=== PATIENT | male | born 1960 | race Caucasian/White ===

== ENCOUNTER 2023-05-20 11:34 | Observation (INO) ==
[2023-05-20] MEDS ORDERED: NITROGLYCERIN 2% OINTMENT 30GM TUBE EXT ONE (11:44)
--- NOTE | 2023-05-20 11:48 | Emergency Department Note ---
Impression & Plan Unstable angina, Abnormal ECG ED Provider Note Name: ALEXANDREA HALL Age: 63 Sex: M Arrives Via: Ambulance Informant: Patient, Daughter, Family, EMS ED Provider: Chidi Greer MD Chief Complaint: Chest pain Impression: As per impressions above Medical Decision Makin-year-old gentleman primary Togolese-speaking arrives for evaluation of substernal chest pain sudden onset this morning. Was diaphoretic and ill- appearing initially but improved with nitro by EMS. On arrival he still had some pain was given IV fentanyl with some improvement and then some IV Dilaudid for continued pain. EKG does show some evidence of anterior biphasic T waves. I did initially discuss with camp coordinator and plan for CT angio chest abdomen pelvis given the significance of his pain and location. This returned unremarkable repeat troponin still at initial baseline, however EKG repeat may show some mildly worsening of the T waves. In the setting of known coronary disease, previous stenting, degree of discomfort and symptoms after discussion with camp coordinator was felt that cardiac catheterization would be indicated at this time. I will note that patient is primarily Togolese-speaking and initially did not want a thermoforming operator line but rather just use his daughter. We were able to have him agreed to using the thermoforming operator line once became apparent the plan was to go to the [facility]. Triage/Nursing Notes reviewed by Me Differentials:ACS, PE, dissection, pancreatitis, biliary pathology, pneumothorax, pneumonia, many other pathologies considered Vital Signs: reviewed and remarkable for moderately hypertensive on arrival Interventions: Nitroglycerin paste, fentanyl 75 mcg IV Labs:Reviewed and remarkable for mildly elevated initial troponin Imaging:CT angio of the chest abdomen pelvis as per my informal interpretation. No overt evidence of large dissection/flap nor rupture. No pneumothorax. No pericardial effusion appreciated. See radiologist read for full report. EKG:As per my interpretation. Indication chest pain. Sinus bradycardia at 53 bpm with no ectopy. QTc 416. There are subtle biphasic T wave in the anterior leads versus left ventricular hypertrophy. There are no previous EKGs for comparison. EKG #2. As per my interpretation. Indication chest pain. As bradycardia 50 bpm with QTc of 421. There is subtle worsening of biphasic T waves anteriorly with slight elevation in V1 and V2. This is a change from earlier EKG on the same date. There is no ectopy appreciated. Cardiac/Tele Monitoring: Cardiac Monitoring: An Order was placed for continuous cardiac monitoring. The monitor shows a rate of 55 with a sinus osorio rhythm. Consults:Dr J Carlos HENRY Interventional Cardiology. [facility] Hospitalist Jzamyn Villalobos. Plan: Disposition:Hospitalization with direct transfer to [facility]. Condition: Good History of Present Illness:63-year-old gentleman arrives for evaluation of chest pain. Patient with a history of hypertension and CAD previous stenting 15 years ago in [place] (the country[place] Patient states that he has been feeling wel l for a few days with a bit of anxiety but nothing that was bothering him too much. This morning while shopping with his daughter he developed crushing substernal and epigastric chest pain. Pain did not radiate to the back or the shoulders. Associated with diaphoresis, pale, weak, short of breath. EMS called and gave him aspirin and sublingual nitroglycerin. Following sublingual nitroglycerin pain essentially resolved and he is feeling much better. Notes some mild substernal pain right now just above epigastrium. Denies any abdominal pain, nausea, vomiting, back pain, urinary/bowel symptoms, leg swelling, calf pain or other concerning signs or symptoms. He has no history of blood clots. He does take aspirin along with a blood pressure and cholesterol medication. Patient admits to history of tobacco use and smoking. Past History:CAD, HTN Home Medications:See Below Allergies:nkda Vitals:Blood Pressure: 160/110, Pulse 60, RR 14, T 36.8C, O2 98% on RA Physical Exam: GENERAL: Patient is mildly uncomfortable appearing and in mild distress. EYES: No scleral icterus, unremarkable pupils. RESPIRATORY: No dyspnea. Clear to auscultation and equal bilaterally. No wheeze, no rhonchi. CARDIOVASCULAR: Regular rate and rhythm.No murmurs, rubs, gallops appreciated. GASTROINTESTINAL: Vague epigastric TTP. Abdomen soft, non-tender, no peritoni tis.Bowel sounds positive.No masses appreciated. EXTREMITIES: Normal motion all extremities, no cyanosis, no edema. NEUROLOGIC: Alert and oriented, no acute motor or sensory deficits, no focal wea kness, cranial nerves grossly intact. SKIN: No rash, no jaundice, no diaphoresis. PSYCH: Appropriate GCS: 15 ED Course: Times/Reassessments: Patient mildly improved with IV pain medications but continuing to describe substernal chest discomfort as well as some epigastric discomfort. Agreeable to CT angios as well as going to the [facility]. Critical Care: I have personally spent 45 minutes of critical care time in the direct management of this patient. Acute substernal chest pain concerning for ACS requiring dissection study and then activation of [facility] team.. This was a life/limb threatening event. This 45 minutes is in excess of all separately billable procedures. Chidi Greer MD Past Med/Surg History Medical History CAD (coronary artery disease) HLD (hyperlipidemia) HTN (hypertension) Surgical History Hx of heart artery stent Family History Other Heart disease Social History Smoking Status: Current every day smoker Hx Alcohol Use: No Hx Substance Use: No Preferred Language: Togolese Communication Tools: IPad Switchboard Clerk Required: Yes Beliefs That Will Affect Care: None Current Living Situation: Family Feels Safe at Home: Yes Safety Concerns: Feels Safe At This Time Assistive Devices: Glasses Allergies Allergies Allergy/AdvReac Type Severity Reaction Status Date / Time No Known Allergies Allergy Unverified 05/20/23 14:32 Home Meds Home Medications Medication Instructions Recorded Confirmed aspirin 81 mg tablet,delayed 81 mg PO DAILY 05/20/23 05/20/23 release atorvastatin 20 mg tablet 20 mg PO DAILY 05/20/23 05/20/23 enalapril maleate 20 mg tablet 20 mg PO DAILY 05/20/23 05/20/23 omega-3 fatty acids 1,000 mg PO DAILY 05/20/23 05/20/23 Results & Data (ED) Vital Signs Vital Signs - 24 hr 05/20/23 11:38 05/20/23 11:43 05/20/23 12:02 Temperature 37.2 C Temperature Source Oral Pulse Rate 53 L 59 L 53 L Pulse Rate from SpO2 Sensor 57 L 52 L Respiratory Rate 18 21 23 Respiratory Depth Normal Blood Pressure 164/128 H 164/128 H 166/82 H Blood Pressure Mean 140 140 110 Pulse Oximetry 96 96 97 Oxygen Delivery Method Room Air Sepsis Recent Fever Within 48 Hours No Sepsis New/Unexplained Change in Mental Status No Sepsis Action Taken by Nursing No Action Required 05/20/23 12:10 05/20/23 12:33 05/20/23 12:30 Temperature Temperature Source Pulse Rate 50 L 54 L 54 L Pulse Rate from SpO2 Sensor 50 L 54 L Respiratory Rate 21 12 Respiratory Depth Blood Pressure 171/90 H Blood Pressure Mean 117 Pulse Oximetry 97 96 Oxygen Delivery Method Sepsis Recent Fever Within 48 Hours Sepsis New/Unexplained Change in Mental Status Sepsis Action Taken by Nursing 05/20/23 13:00 05/20/23 13:39 Temperature Temperature Source Pulse Rate 48 L 57 L Pulse Rate from SpO2 Sensor 50 L 54 L Respiratory Rate 17 17 Respiratory Depth Blood Pressure 147/92 H 145/82 H Blood Pressure Mean 110 103 Pulse Oximetry 97 97 Oxygen Delivery Method Sepsis Recent Fever Within 48 Hours Sepsis New/Unexplained Change in Mental Status Sepsis Action Taken by Nursing Laboratory Data 05/20/23 11:43 05/20/23 11:43 Lab Results 05/20/23 05/20/23 05/20/23 Range/Units 11:43 11:43 11:43 WBC 8.02 (4.8-10.8) K/ul RBC 5.15 (4.70-6.10) M/uL Hgb 15.6 (14.0-18.0) g/dl Hct 46.2 (42.0-52.0) % MCV 89.7 (80.0-100.0) fL MCH 30.3 (25.0-34.0) pg MCHC 33.8 (32.0-36.0) g/dL RDW Std Deviation 47.0 H (36.4-46.3) fL RDW Coeff of Alanna 14.2 (11.5-14.5) % Plt Count 281 (130-400) K/uL MPV 10.7 (9.4-12.4) fL Immature Gran % (Auto) 0.5 % Neut % (Auto) 46.5 % Lymph % (Auto) 34.5 % [place] % (Auto) 13.7 % Eos % (Auto) 4.1 % Baso % (Auto) 0.7 % Neut # (Auto) 3.72 (1.40-6.50) K/uL Lymph # (Auto) 2.77 (1.2-3.4) K/uL [place] # (Auto) 1.10 H (0.11-0.59) K/uL Eos # (Auto) 0.33 (0-0.50) K/uL Baso # (Auto) 0.06 (0-0.2) K/uL Immature Gran # (Auto) 0.04 (0.01-0.20) K/uL PT 10.5 (9.0-12.0) Seconds INR 1.0 (0.9-1.1) APTT 24.7 (21.0-31.0) Seconds PTT Ratio 0.9 D-Dimer 310 (0-500) ug/L FEU Sodium 139 (136-145) mmol/L Potassium 3.6 (3.5-5.1) mmol/L Chloride 104 (98-107) mmol/L Carbon Dioxide 28 (21-32) mmol/L Anion Gap 7 (3-11) BUN 17 (6-23) mg/dl Creatinine 1.08 (0.6-1.4) mg/dl Est Cr Clr Drug Dosing Not Reportable Est GFR ( Amer) 84.8 ml/min Est GFR (Non-Af Amer) 73.2 ml/min BUN/Creatinine Ratio 15.7 (10-20) Glucose 96 (70-99(Fasting)) mg/dl Calcium 10.0 (8.6-10.3) mg/dl Magnesium 2.0 (1.7-2.4) mg/dl Total Bilirubin 1.1 H (0.2-1.0) mg/dl Direct Bilirubin 0.1 (0-0.2) mg/dl AST 23 (13-39) U/L ALT 27 (7-52) U/L Alkaline Phosphatase 91 (34-104) U/L Troponin I High Sens 23.7 H (0-20) pg/ml Total Protein 7.3 (6.0-8.3) gm/dl Albumin 4.2 (3.4-5.0) gm/dl Lipase 11 (11-82) U/L 05/20/23 Range/Units 13:14 WBC (4.8-10.8) K/ul RBC (4.70-6.10) M/uL Hgb (14.0-18.0) g/dl Hct (42.0-52.0) % MCV (80.0-100.0) fL MCH (25.0-34.0) pg MCHC (32.0-36.0) g/dL RDW Std Deviation (36.4-46.3) fL RDW Coeff of Alanna (11.5-14.5) % Plt Count (130-400) K/uL MPV (9.4-12.4) fL Immature Gran % (Auto) % Neut % (Auto) % Lymph % (Auto) % [place] % (Auto) % Eos % (Auto) % Baso % (Auto) % Neut # (Auto) (1.40-6.50) K/uL Lymph # (Auto) (1.2-3.4) K/uL [place] # (Auto) (0.11-0.59) K/uL Eos # (Auto) (0-0.50) K/uL Baso # (Auto) (0-0.2) K/uL Immature Gran # (Auto) (0.01-0.20) K/uL PT (9.0-12.0) Seconds INR (0.9-1.1) APTT (21.0-31.0) Seconds PTT Ratio D-Dimer (0-500) ug/L FEU Sodium (136-145) mmol/L Potassium (3.5-5.1) mmol/L Chloride (98-107) mmol/L Carbon Dioxide (21-32) mmol/L Anion Gap (3-11) BUN (6-23) mg/dl Creatinine (0.6-1.4) mg/dl Est Cr Clr Drug Dosing Est GFR ( Amer) ml/min Est GFR (Non-Af Amer) ml/min BUN/Creatinine Ratio (10-20) Glucose (70-99(Fasting)) mg/dl Calcium (8.6-10.3) mg/dl Magnesium (1.7-2.4) mg/dl Total Bilirubin (0.2-1.0) mg/dl Direct Bilirubin (0-0.2) mg/dl AST (13-39) U/L ALT (7-52) U/L Alkaline Phosphatase (34-104) U/L Troponin I High Sens 18.5 D (0-20) pg/ml Total Protein (6.0-8.3) gm/dl Albumin (3.4-5.0) gm/dl Lipase (11-82) U/L Administered Medications Enoxaparin Sodium (Enoxaparin Inj 40 Mg/0.4 Ml Syr) 40 mg SQ Q24H CHARITY Stop: 06/19/23 15:59 Last Admin: 05/20/23 18:00 Dose: 40 mg Documented By: Discontinued Medications Diphenhydramine HCl (Diphenhydramine 50 Mg/Ml Vial) Confirm Administered Dose 50 mg .ROUTE .STK-MED ONE Stop: 05/20/23 14:22 Last Admin: 05/20/23 15:28 Dose: Not Given Documented By: Famotidine (Famotidine 10 Mg Tablet) 10 mg PO NOW ONE Stop: 05/20/23 16:31 Last Admin: 05/20/23 17:02 Dose: 10 mg Documented By: Fentanyl Citrate (Fentanyl Citrate Pf 100 Mcg/2 Ml Vial) 75 mcg IV NOW STA Stop: 05/20/23 12:09 Last Admin: 05/20/23 12:21 Dose: 75 mcg Documented By: JACKIE Fentanyl Citrate (Fentanyl Citrate Pf 100 Mcg/2 Ml Vial) Confirm Administered Dose 100 mcg .ROUTE .STK-MED ONE Stop: 05/20/23 13:40 Last Admin: 05/20/23 15:28 Dose: Not Given Documented By: Heparin Sodium (Porcine) (Heparin (Porcine) 1000 Unit/Ml 10 Ml ([facility] Use Only)) Confirm Administered Dose 10,000 units .ROUTE .STK-MED ONE Stop: 05/20/23 13:40 Last Admin: 05/20/23 15:28 Dose: Not Given Documented By: Heparin Sodium/Sodium Chloride (Heparin In Nss Infusion 1000 Unit/500 Ml (2 U/Ml) Bag) Confirm Administered Dose 4,000 units IV .STK-MED ONE Stop: 05/20/23 13:41 Last Admin: 05/20/23 15:28 Dose: Not Given Documented By: Hydromorphone HCl (Hydromorphone Inj 1 Mg/Ml Syringe) 1 mg IV NOW STA Stop: 05/20/23 13:16 Last Admin: 05/20/23 13:25 Dose: 1 mg Documented By: KOBY Ioversol (Optiray 320 125ml) 119 ml IV ONCE ONE Stop: 05/20/23 12:39 Last Admin: 05/20/23 12:38 Dose: 119 ml Documented By: ANDREWK Midazolam HCl (Midazolam Hcl 1 Mg/Ml 2ml Vial) Confirm Administered Dose 2 mg .ROUTE .STK-MED ONE Stop: 05/20/23 13:40 Last Admin: 05/20/23 15:28 Dose: Not Given Documented By: Nicardipine HCl (Nicardipine Hcl Inj 2.5 Mg/Ml 10 Ml Amp) Confirm Administered Dose 25 mg .ROUTE .STK-MED ONE Stop: 05/20/23 13:40 Last Admin: 05/20/23 15:28 Dose: Not Given Documented By: Nitroglycerin (Nitroglycerin 2% Ointment 30gm Tube) 1 inch EXT NOW ONE Stop: 05/20/23 11:45 Last Admin: 05/20/23 12:05 Dose: 1 inch Documented By: NRErwin Nitroglycerin/Dextrose (Nitroglycerin/D5w 100mcg/Ml 20ml Syr) Confirm Administered Dose 2,000 mcg .ROUTE .STK-MED ONE Stop: 05/20/23 13:41 Last Admin: 05/20/23 15:28 Dose: Not Given Documented By: Imaging Data Radiologist's Impression: Abdomen/Pelvis CTA 05/20/23 12:23 CT angio abdomen pelvis w con CLINICAL HISTORY: tearing chest pain, HTN TECHNIQUE: Multidetector row helical CT of the abdomen and pelvis was performed, following intravenous administration of iodinated contrast. No oral contrast was administered. Automated dose lowering techniques and/or adjustment according to patient size were utilized for this exam. Coronal and sagittal reformations were obtained. MIP and 3D volume rendered reconstructions were obtained. Comparison: None available at the time of this dictation. FINDINGS: Lower chest: For findings above the diaphragm, please see CT chest performed same day. Liver: Unremarkable. No focal lesions are seen. Gallbladder and biliary tree: No calcified gallstones. Normal caliber wall. No intra- or extrahepatic biliary ductal dilation. Pancreas: Unremarkable, no focal lesions. Spleen: The spleen is somewhat diminutive in size. Adrenals: Bilateral nodularity is seen. Kidneys and ureters: Multifocal scarring is seen in the kidneys. Bladder: Unremarkable. Reproductive organs: Unremarkable. Bowel: Unremarkable appearance of the bowel. The appendix is normal. A small hiatal hernia is seen. Lymph nodes Retroperitoneal: Unremarkable. Pelvic: Unremarkable. Mesenteric: Unremarkable. Peritoneum: Normal. Abdominal wall: A fat-containing umbilical hernia is seen. Bones: Degenerative changes in the visualized spine. CT angiogram: The abdominal aortic contours appear intact without evidence of aneurysmal dilatation and/or dissection. Extensive calcified and noncalcified atherosclerosis is seen. 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 The origins of the celiac axis, superior mesenteric, inferior mesenteric and bilateral renal arteries are patent. IMPRESSION: No acute abnormalities and in particular no evidence of aortic dissection. Extensive atherosclerotic disease is seen with additional findings as above.. ACT 112: Negative or not required by law. Electronically signed by: Ranulfo Walters M.D. 05/20/2023 1:12 PM Chest CTA 05/20/23 12:23 CT angio chest dissec wo/w con CLINICAL HISTORY: tearing chest pain, HTN TECHNIQUE: Multidetector row helical CT of the chest was performed before and after injection of IV contrast. Coronal and sagittal reformations were obtained. Automated dose lowering techniques and/or adjustment according to patient size were utilized for this exam. CT DOSE: 1968.77 mGy.cm Comparison: None available at the time of this dictation. FINDINGS: Lungs and pleura: Normal. Heart and pericardium: Heart size is normal. No pericardial effusion. Vessels: No aortic dissection or intramural hematoma is seen. Moderate atherosclerotic disease is seen. Mediastinum and henry: Unremarkable. Chest wall and lower neck: Unremarkable. Abdomen: For findings below the diaphragm, please refer to CT of the abdomen dated the same. Bones: Degenerative changes in the thoracic spine. IMPRESSION: No acute abnormality and in particular no evidence of acute aortic injury. ACT 112: Negative or not required by law. Electronically signed by: Ranulfo Walters M.D. 05/20/2023 1:05 PM Discharge Plan Visit Data Chief Complaint: Chest Pain Stated Complaint: CHEST PAIN ED Provider: Chidi Greer Discharge Problem: Unstable angina, Abnormal ECG Patient Disposition: Admitted As Inpatient Discharge Instructions Interventions: ED Discharge Assessment Last Done: 05/20/23 13:52
[2023-05-20 12:00] LABS: Basophils # (auto) 0.06 K/uL (0-0.2); Basophils % (auto) 0.7 %; Eosinophils # (auto) 0.33 K/uL (0-0.50); Eosinophils % (auto) 4.1 %; Hematocrit (blood only) 46.2 % (42.0-52.0); Hemoglobin 15.6 g/dl (14.0-18.0); Immature Granulocytes # (auto) 0.04 K/uL (0.01-0.20); Immature Granulocytes % (auto) 0.5 %; Lymphocytes # (auto) 2.77 K/uL (1.2-3.4); Lymphocytes % (auto) 34.5 %; Mean Corpuscular Hemoglobin 30.3 pg (25.0-34.0); Mean Corpuscular Hgb Conc 33.8 g/dL (32.0-36.0); Mean Corpuscular Volume 89.7 fL (80.0-100.0); Mean Platelet Volume 10.7 fL (9.4-12.4); Monocytes % (auto) 13.7 %; Neutrophils # (auto) 3.72 K/uL (1.40-6.50); Neutrophils % (auto) 46.5 %; Platelet Count 281 K/uL (130-400); RDW Coefficient of Variation 14.2 % (11.5-14.5); Red Blood Count 5.15 M/uL (4.70-6.10); White Blood Count 8.02 K/ul (4.8-10.8)
[2023-05-20] MEDS ORDERED: fentaNYL citrate PF 100 MCG/2 ML VIAL IV STA (12:08)
[2023-05-20 12:18] LABS: Alanine Aminotransferase 27 U/L (7-52); Albumin Level 4.2 gm/dl (3.4-5.0); Alkaline Phosphatase 91 U/L (34-104); Anion Gap 7 (3-11); Aspartate Aminotransferase 23 U/L (13-39); BUN Creatinine Ratio 15.7 (10-20); Bilirubin Direct 0.1 mg/dl (0-0.2); Bilirubin,Total 1.1 mg/dl (0.2-1.0); Blood Urea Nitrogen 17 mg/dl (6-23); Carbon Dioxide 28 mmol/L (21-32); Chloride 104 mmol/L (98-107); Est GFR (African American) 84.8 ml/min; Est GFR (Non-African American) 73.2 ml/min; Glucose 96 mg/dl (70-99(Fasting)); Lipase 11 U/L (11-82); Potassium 3.6 mmol/L (3.5-5.1); Sodium 139 mmol/L (136-145); Total Protein 7.3 gm/dl (6.0-8.3)
[2023-05-20 12:24] LABS: Troponin I High Sensitivity 23.7 pg/ml (0-20)
[2023-05-20] MEDS ORDERED: OPTIRAY 320 125ml IV ONE (12:38)
[2023-05-20 12:48] LABS: D Dimer 310 ug/L FEU (0-500); Partial Thromboplastin Ratio 0.9; Partial Thromboplastin Time 24.7 Seconds (21.0-31.0); Prothrombin Time 10.5 Seconds (9.0-12.0)
--- NOTE | 2023-05-20 13:07 | CT Scan Report ---
CT angio chest dissec wo/w con CLINICAL HISTORY: tearing chest pain, HTN TECHNIQUE: Multidetector row helical CT of the chest was performed before and after injection of IV c ontrast. Coronal and sagittal reformations were obtained. Automated dose lowering techniques and/or a djustment according to patient size were utilized for this exam. CT DOSE: 1968.77 mGy.cm Comparison: None available at the time of this dictation. FINDINGS: Lungs and pleura: Normal. Heart and pericardium: Heart size is normal. No pericardial effusion. Vessels: No aortic dissection or intramural hematoma is seen. Moderate atherosclerotic disease is see n. Mediastinum and henry: Unremarkable. Chest wall and lower neck: Unremarkable. Abdomen: For findings below the diaphragm, please refer to CT of the abdomen dated the same. Bones: Degenerative changes in the thoracic spine. IMPRESSION: No acute abnormality and in particular no evidence of acute aortic injury. ACT 112: Negative or not required by law. Electronically signed by: Ranulfo Walters M.D. 05/20/2023 1:05 PM
--- NOTE | 2023-05-20 13:14 | CT Scan Report ---
CT angio abdomen pelvis w con CLINICAL HISTORY: tearing chest pain, HTN TECHNIQUE: Multidetector row helical CT of the abdomen and pelvis was performed, following intravenou s administration of iodinated contrast. No oral contrast was administered. Automated dose lowering te chniques and/or adjustment according to patient size were utilized for this exam. Coronal and sagitta l reformations were obtained. MIP and 3D volume rendered reconstructions were obtained. Comparison: None available at the time of this dictation. FINDINGS: Lower chest: For findings above the diaphragm, please see CT chest performed same day. Liver: Unremarkable. No focal lesions are seen. Gallbladder and biliary tree: No calcified gallstones. Normal caliber wall. No intra- or extrahepatic biliary ductal dilation. Pancreas: Unremarkable, no focal lesions. Spleen: The spleen is somewhat diminutive in size. Adrenals: Bilateral nodularity is seen. Kidneys and ureters: Multifocal scarring is seen in the kidneys. Bladder: Unremarkable. Reproductive organs: Unremarkable. Bowel: Unremarkable appearance of the bowel. The appendix is normal. A small hiatal hernia is seen. Lymph nodes Retroperitoneal: Unremarkable. Pelvic: Unremarkable. Mesenteric: Unremarkable. Peritoneum: Normal. Abdominal wall: A fat-containing umbilical hernia is seen. Bones: Degenerative changes in the visualized spine. CT angiogram: The abdominal aortic contours appear intact without evidence of aneurysmal dilatation a nd/or dissection. Extensive calcified and noncalcified atherosclerosis is seen. 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 The origins of the celiac axis, superior mesenteric, inferior mesenteric and bilateral renal arteries are patent. IMPRESSION: No acute abnormalities and in particular no evidence of aortic dissection. Extensive atherosclerotic disease is seen with additional findings as above.. ACT 112: Negative or not required by law. Electronically signed by: Ranulfo Walters M.D. 05/20/2023 1:12 PM
[2023-05-20] MEDS ORDERED: HYDROmorphone INJ 1 MG/ML SYRINGE IV STA (13:15)
[2023-05-20] MEDS ORDERED: fentaNYL citrate PF 100 MCG/2 ML VIAL ONE (13:39)
[2023-05-20] MEDS ORDERED: MIDAZOLAM HCL 1 MG/ML 2ML VIAL ONE (13:39)
[2023-05-20] MEDS ORDERED: niCARdipine HCL INJ 2.5 MG/ML 10 ML AMP ONE (13:39)
[2023-05-20] MEDS ORDERED: HEPARIN (PORCINE) 1000 UNIT/ML 10 ML (CATH LAB USE ONLY) ONE (13:39)
[2023-05-20] MEDS ORDERED: NITROGLYCERIN/D5W 100MCG/ML 20ML SYR ONE (13:40)
[2023-05-20] MEDS ORDERED: diphenhydrAMINE 50 MG/ML VIAL ONE (14:21)
[2023-05-20] MEDS ORDERED: ENOXAPARIN INJ 40 MG/0.4 ML SYR SQ SCH (16:00)
[2023-05-20] MEDS ORDERED: ACETAMINOPHEN 325 MG TAB PO PRN (16:05)
--- NOTE | 2023-05-20 16:15 | History & Physical Report ---
Date of Service May 20, 2023 Assessment & Plan (1) Chest pain: (2) Epigastric pain: (3) CAD (coronary artery disease): (4) Hx of heart artery stent: (5) HTN (hypertension): (6) HLD (hyperlipidemia): Plan Chest pain with hx of CAD s/p stent: -EKG showed TWI on V4-V6 and II, III, aVF -trop was slightly elevated --- repeat trop was normal - pt was taken to cardiac cath ---- no stent was placed, chronic stable appearing CAD -CTA chest: no PE -admitted to PCU -will obtain echo and cardiology consult --- outpt cards follow up -will start pt on aspirin 81mg daily and continue his statin -AM A1C and Lipid panel Epigastric abd Tenderness + GERD symptoms: -denied any dysphagia -will start pt on protonix 40mg daily - Pepcid now - CTA abd: overall normal except for atherosclerosis -pt might need Outpt work up for H.Pylori HTn/HLD: -will continue Enalapril and Atorvastatin Diet: Cardiac DVT PPx: Lovenox Code Status:FULL CODE Emergency Contact: DaughterThomas Banda [phone] Admission and Anticipated Discharge Date Admission Date: May 20, 2023 History of Present Illness Chief Complaint: chest pain and abd pain Primary Care Provider: NO PCP Pt is a 63 y/o M with hx of CAD s/p stent (2008), HTN, HLD came to the ER with 2 hr hx of substernal CP, abd pain and diaphoresis. 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 At bedside (used the in school suspension aide service): Per pt his symptoms started with epigastric abd pain, then he became pale and then started to have diaphoresis Now the abd pain is better. Denied any acute Nausea, CP, SOB or ARMIJO. No recent diarrhea, vomiting, fever, rash or URI symptoms Has been having heart burn symptoms and frequent belching (lore after meals) for 2 years but denied any dysphagia. Pt does smoke daily but denied any ETOH intake or prior hx of GI bleed. Allergies Allergy/AdvReac Type Severity Reaction Status Date / Time No Known Allergies Allergy Unverified 05/20/23 14:32 Home Medications Medication Instructions Recorded Confirmed Type aspirin 81 mg tablet,delayed 81 mg PO DAILY 05/20/23 05/20/23 History release atorvastatin 20 mg tablet 20 mg PO DAILY 05/20/23 05/20/23 History enalapril maleate 20 mg tablet 20 mg PO DAILY 05/20/23 05/20/23 History omega-3 fatty acids 1,000 mg PO DAILY 05/20/23 05/20/23 History Past Med/Surg History Medical History CAD (coronary artery disease) HLD (hyperlipidemia) HTN (hypertension) Surgical History Hx of heart artery stent Family History Other Heart disease Review of Systems Review of Systems: At least 10 Review of systems were reviewed and all negative except as indicated in HPI Physical Exam Physical Exam: General:. NAD, well developed, well nourished, average body habitus HEENT:. Normocephalic and atraumatic, Normal Conjunctiva, EOMI, Sclera is non- icteric Lungs:. No signs of respiratory distress, CTA, no wheezing or crackles Heart:. Normal S1, S2, no murmur Abdominal:.TTP of the epigastric area, ND, Soft, normal BS MSK:. No deformities of UE and LE, No leg edema Psych:. AAOx3, normal affect Results & Data Results & Data Vital Signs (Past 12 Hours) Vital Signs Temp Pulse Pulse Resp BP BP Pulse Ox 05/20/23 15:30 36.5 C 58 L 18 175/78 H 97 05/20/23 15:15 36.5 C 62 20 173/74 H 97 05/20/23 14:47 71 18 158/90 H 96 05/20/23 13:39 57 L 17 145/82 H 97 05/20/23 13:00 48 L 17 147/92 H 97 05/20/23 12:30 54 L 12 171/90 H 96 05/20/23 12:33 54 L 05/20/23 12:10 50 L 21 97 05/20/23 12:02 53 L 23 166/82 H 97 05/20/23 11:43 59 L 21 164/128 H 96 05/20/23 11:38 37.2 C 53 L 18 164/128 H 96 O2 Del Method 05/20/23 15:30 Room Air 05/20/23 15:15 Room Air 05/20/23 14:47 Room Air 05/20/23 13:39 05/20/23 13:00 05/20/23 12:30 05/20/23 12:33 05/20/23 12:10 05/20/23 12:02 05/20/23 11:43 05/20/23 11:38 Room Air Laboratory Results Short CBC 05/20/23 Range/Units 11:43 WBC 8.02 (4.8-10.8) K/ul Hgb 15.6 (14.0-18.0) g/dl Hct 46.2 (42.0-52.0) % Plt Count 281 (130-400) K/uL BMP 05/20/23 11:43 Sodium 139 Potassium 3.6 Chloride 104 Carbon Dioxide 28 BUN 17 Creatinine 1.08 Glucose 96 Calcium 10.0 Liver Function 05/20/23 Range/Units 11:43 Total Bilirubin 1.1 H (0.2-1.0) mg/dl Direct Bilirubin 0.1 (0-0.2) mg/dl AST 23 (13-39) U/L ALT 27 (7-52) U/L Alkaline Phosphatase 91 (34-104) U/L Albumin 4.2 (3.4-5.0) gm/dl Diagnostic Findings Abdomen/Pelvis CTA 05/20/23 12:23 CT angio abdomen pelvis w con CLINICAL HISTORY: tearing chest pain, HTN TECHNIQUE: Multidetector row helical CT of the abdomen and pelvis was performed, following intravenous administration of iodinated contrast. No oral contrast was administered. Automated dose lowering techniques and/or adjustment according to patient size were utilized for this exam. Coronal and sagittal reformations were obtained. MIP and 3D volume rendered reconstructions were obtained. Comparison: None available at the time of this dictation. FINDINGS: Lower chest: For findings above the diaphragm, please see CT chest performed same day. Liver: Unremarkable. No focal lesions are seen. Gallbladder and biliary tree: No calcified gallstones. Normal caliber wall. No intra- or extrahepatic biliary ductal dilation. Pancreas: Unremarkable, no focal lesions. Spleen: The spleen is somewhat diminutive in size. Adrenals: Bilateral nodularity is seen. Kidneys and ureters: Multifocal scarring is seen in the kidneys. Bladder: Unremarkable. Reproductive organs: Unremarkable. Bowel: Unremarkable appearance of the bowel. The appendix is normal. A small hiatal hernia is seen. Lymph nodes Retroperitoneal: Unremarkable. Pelvic: Unremarkable. Mesenteric: Unremarkable. Peritoneum: Normal. Abdominal wall: A fat-containing umbilical hernia is seen. Bones: Degenerative changes in the visualized spine. CT angiogram: The abdominal aortic contours appear intact without evidence of aneurysmal dilatation and/or dissection. Extensive calcified and noncalcified atherosclerosis is seen. 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 The origins of the celiac axis, superior mesenteric, inferior mesenteric and bilateral renal arteries are patent. IMPRESSION: No acute abnormalities and in particular no evidence of aortic dissection. Extensive atherosclerotic disease is seen with additional findings as above.. ACT 112: Negative or not required by law. Electronically signed by: Ranulfo Walters M.D. 05/20/2023 1:12 PM Chest CTA 05/20/23 12:23 CT angio chest dissec wo/w con CLINICAL HISTORY: tearing chest pain, HTN TECHNIQUE: Multidetector row helical CT of the chest was performed before and after injection of IV contrast. Coronal and sagittal reformations were obtained. Automated dose lowering techniques and/or adjustment according to patient size were utilized for this exam. CT DOSE: 1968.77 mGy.cm Comparison: None available at the time of this dictation. FINDINGS: Lungs and pleura: Normal. Heart and pericardium: Heart size is normal. No pericardial effusion. Vessels: No aortic dissection or intramural hematoma is seen. Moderate atherosclerotic disease is seen. Mediastinum and henry: Unremarkable. Chest wall and lower neck: Unremarkable. Abdomen: For findings below the diaphragm, please refer to CT of the abdomen dated the same. Bones: Degenerative changes in the thoracic spine. IMPRESSION: No acute abnormality and in particular no evidence of acute aortic injury. ACT 112: Negative or not required by law. Electronically signed by: Ranulfo Walters M.D. 05/20/2023 1:05 PM Code Status & VTE Plan VTE Prophylaxis Plan VTE Prophylaxis will be ordered: Yes
[2023-05-20] MEDS ORDERED: ONDANSETRON 4 MG OD TAB PO PRN (16:20)
[2023-05-20] MEDS ORDERED: FAMOTIDINE 10 MG TABLET PO ONE (16:30)
--- NOTE | 2023-05-20 18:00 | Post Anesthesia Assessment ---
Date of Service May 20, 2023 Post Sedation Assessment Vital Signs Temp Pulse Pulse Resp BP BP Pulse Ox 05/20/23 17:48 98.1 F 54 L 18 154/81 H 95 05/20/23 17:17 98.1 F 54 L 18 151/80 H 95 05/20/23 16:45 98.6 F 55 L 19 159/90 H 97 05/20/23 15:30 53 L 05/20/23 16:15 97.7 F 47 L 20 146/88 H 97 05/20/23 16:00 97.3 F L 50 L 18 170/89 H 97 05/20/23 15:45 97.7 F 54 L 18 171/90 H 98 05/20/23 15:30 97.7 F 58 L 18 175/78 H 97 05/20/23 15:15 97.7 F 62 20 173/74 H 97 05/20/23 14:47 71 18 158/90 H 96 05/20/23 13:39 57 L 17 145/82 H 97 05/20/23 13:00 48 L 17 147/92 H 97 05/20/23 12:30 54 L 12 171/90 H 96 05/20/23 12:33 54 L 05/20/23 12:10 50 L 21 97 05/20/23 12:02 53 L 23 166/82 H 97 05/20/23 11:43 59 L 21 164/128 H 96 05/20/23 11:38 99.0 F 53 L 18 164/128 H 96 O2 Del Method 05/20/23 17:48 Room Air 05/20/23 17:17 Room Air 05/20/23 16:45 Room Air 05/20/23 15:30 05/20/23 16:15 Room Air 05/20/23 16:00 Room Air 05/20/23 15:45 Room Air 05/20/23 15:30 Room Air 05/20/23 15:15 Room Air 05/20/23 14:47 Room Air 05/20/23 13:39 05/20/23 13:00 05/20/23 12:30 05/20/23 12:33 05/20/23 12:10 05/20/23 12:02 05/20/23 11:43 05/20/23 11:38 Room Air Recovery Score Activity: Moves 4 extremities Respiration: Deep Breath/Cough Circulation: +/-20% PreAnes Value Consciousness: Fully Awake Oxygen Saturation: > 92% On Room Air Post Anesthesia Score: 10 Discharge Sedation Level of Care: Fast Track Phase II Post Sedation Plan On clinical assessment, the patient appears to have tolerated the sedation without complications. Patient is recovering as anticipated. Patient will continue to be monitored by nursing and may be discharged when sedation discharge criteria are met per below protocol. Upon Completions of procedure up to 15 minutes continue every 5 minute vital signs and the P.A.R. score; then discharge to a Phase I or Fast Track to Phase II per the following guidelines: * Discharge Patient to appropriate Phase II area if PAR is 8 or greater or return to pre- procedure baseline. The post - procedure orders will be as directed. * If PAR score is less than 8 or not return to pre-procedure baseline then patient will follow Phase I monitoring till PAR is reached for Phase II. The Phase I may be done in procedure room or may call to secure a Phase I area. * If naloxone or flumazenil are used for reversal, hold in Phase I for continued monitoring from when last reversal dose was given for a minimum of 60 minutes or longer pending the nurse and/or physician discretion of patient condition before discharge to Phase II. Please call the Sedation Physician to re-evaluate and complete post-note for discharge to Phase II area. Do NOT discharge from procedure sedation or Phase 1 until post- sedation evaluation note is complete by procedure /sedation MD Sedation Discharge Instructions to be given to the patient at discharge to home.
--- NOTE | 2023-05-20 18:00 | Pre Anesthesia Assessment ---
Date of Service May 20, 2023 Pre Sedation Assessment Vital Signs Temp Pulse Pulse Resp BP BP Pulse Ox 05/20/23 17:48 98.1 F 54 L 18 154/81 H 95 05/20/23 17:17 98.1 F 54 L 18 151/80 H 95 05/20/23 16:45 98.6 F 55 L 19 159/90 H 97 05/20/23 15:30 53 L 05/20/23 16:15 97.7 F 47 L 20 146/88 H 97 05/20/23 16:00 97.3 F L 50 L 18 170/89 H 97 05/20/23 15:45 97.7 F 54 L 18 171/90 H 98 05/20/23 15:30 97.7 F 58 L 18 175/78 H 97 05/20/23 15:15 97.7 F 62 20 173/74 H 97 05/20/23 14:47 71 18 158/90 H 96 05/20/23 13:39 57 L 17 145/82 H 97 05/20/23 13:00 48 L 17 147/92 H 97 05/20/23 12:30 54 L 12 171/90 H 96 05/20/23 12:33 54 L 05/20/23 12:10 50 L 21 97 05/20/23 12:02 53 L 23 166/82 H 97 05/20/23 11:43 59 L 21 164/128 H 96 05/20/23 11:38 99.0 F 53 L 18 164/128 H 96 O2 Del Method 05/20/23 17:48 Room Air 05/20/23 17:17 Room Air 05/20/23 16:45 Room Air 05/20/23 15:30 05/20/23 16:15 Room Air 05/20/23 16:00 Room Air 05/20/23 15:45 Room Air 05/20/23 15:30 Room Air 05/20/23 15:15 Room Air 05/20/23 14:47 Room Air 05/20/23 13:39 05/20/23 13:00 05/20/23 12:30 05/20/23 12:33 05/20/23 12:10 05/20/23 12:02 05/20/23 11:43 05/20/23 11:38 Room Air Cardiovascular RRR, no murmur, no edema Respiratory normal respiratory effort, lungs clear to auscultation Pre-Sedation Airway Assessment Smoking Status: Current every day smoker Hx Sleep Apnea: No Hx Difficult Intubation: No Short, Thick Neck: No Thyromental Distance: < 3.5 Finger Breadths Oral Cavity: + WNL Mallampati Class: III ASA: ASA3 Procedure Planning Contraindications for Sedation: none Current Medications Reviewed: Yes Notes The planned sedation has been discussed with the patient. Informed Consent was obtained. I have identified the patient, determined the appropriateness of sedation and have assessed the patient immediately prior to the procedure. All medicine(s) and interventions are by my order.
--- NOTE | 2023-05-20 18:06 | Electrocardiogram Report ---
Test Reason : Blood Pressure : / mmHG Vent. Rate : 053 BPM Atrial Rate : 053 BPM P-R Int : 156 ms QRS Dur : 118 ms QT Int : 444 ms P-R-T Axes : 050 -14 -56 degrees QTc Int : 416 ms Sinus bradycardia Left ventricular hypertrophy with QRS widening and repolarization abnormality ( Rafiq product ) Abnormal ECG No previous ECGs available Confirmed by Ace Peterson ([id number]) on 05/20/2023 6:05:51 PM Referred By: REFERRED SELF Confirmed By:Ace Peterson
--- NOTE | 2023-05-20 18:06 | Cardiac Catheterization ---
[facility] Data: Rehabilitation Manager Cardiac Status Clinical evaluation leading to the procedure CAD Presenation: Unstable angina Anginal Classification: CCS IV Diagnostic Physicians Name: Andreas Whitman MD Closure Device Recommendations: Medical Therapy and/or Counseling Cardiac Cath Procedure Full Procedure Date May 20, 2023 Pre-Procedure Diagnosis Pre-Procedure Diagnosis: Acute Coronary Syndrome AUC Score AUC Score: 7 Post-Procedure Diagnosis Post-Procedure Diagnosis: Severe CAD and Normal Intracardiac Pressures Procedure(s) Performed Procedure(s) Performed: Coronary Angiography and Left Heart Cath Ammunition Supervisor Andreas Whitman MD Can Top Setter(s) Showers Estimated Blood Loss Estimated Blood Loss: 5 Medication(s) Medication(s): Fentanyl, Heparin, Lidocaine 1%, Nicardipine, Nitroglycerin and Versed Summary of Findings Indication: Suspected ACS Access: 6 Fr right radial artery Catheters: MIR NailsU 3.5 guide Findings: LM -normal caliber, long vessel with 20 to 30% mid segment stenosis. LAD -medium caliber vessel, mildly calcified, sequential mid LAD lesions 50-60% earlymid stenosis at takeoff of large D1 followed by focal 80% stenosis at second septal. Latemid LAD stent with severe diffuse in-stent restenosis up to 95%. Distal vessel with mild disease and extends around apex Circumflex -small caliber vessel, 40% ostial stenosis before bifurcating high OM1. Subtotally occluded in the midsegment. Small OM2 with MERRILL I flow RCA -large caliber vessel, dominant, 20-30% mid segment disease. Bifurcation PDA with 40-50% ostial stenosis. 100% chronic occlusion of right posterior AV branch right after takeoff of PDA. Right PLB's fill briskly via [id number] collaterals. LVEDP -11 Arterial Closure: TR band Summary: 1. Chronic multivessel coronary artery disease - Sequential mid LAD lesions (60%, 80%). Latemid LAD stent with diffuse in- stent restenosis up to 95%. Subtotally occluded small mid circumflex with MERRILL I flow in small OM2 100% chronic total occlusion of right posterior AV branch. Right PLB's fill via [id number] collaterals 2. Normal intracardiac filling pressure Recommendations: No acute high risk disease to explain patient's acute epigastric pain. Recommend medical management of patient's chronic CAD. If refractory exertional symptoms in the future could consider PCI to LAD versus CABG. Continue ASCVD risk factor modification Note--patient very active with sedation, unable to comply with instructionsat one point pulled out sheath/catheter. Would likely require anesthesia involvement if PCI undertaken. Hemodynamics Rest Ao:: 143/77/110 Final Ao: 160/95/124 LV: 143/11 Recommendations Recommendations: Medical Therapy and/or Counseling Specimens Specimens: None Radiation Exposure (mGy) 1019 Contrast (mls) 75 Anesthesia Moderate 9699-3824 Procedural Complication(s) None Disposition PCU I attest to the content of the Intraoperative Record and any orders documented therein. Any exceptions are noted below. [facility] Card Cath Procedure Codes Cardiac Catheterization Procedure 1: Cardiovascular Cath Procedures: 00681 Coronaries and LHC (+/-LV) Moderate Sedation Procedure 1: Sedation/Anesthesia: 47300 Mod Sedation by the same physician;Init15 Min Child Age 5 & Up PG Care Time/CCT Total # of Minutes Spent Total Time Spent with Patient: Total time spent is greater than 50% in coordination of care (as documented) at patient's floor/unit and/or counseling patient:
--- NOTE | 2023-05-20 18:09 | Electrocardiogram Report ---
Test Reason : Blood Pressure : / mmHG Vent. Rate : 050 BPM Atrial Rate : 050 BPM P-R Int : 160 ms QRS Dur : 110 ms QT Int : 462 ms P-R-T Axes : 052 -10 -78 degrees QTc Int : 421 ms Sinus bradycardia Incomplete right bundle branch block Abnormal ECG When compared with ECG of 20-MAY-2023 11:38, (unconfirmed) No significant change was found Confirmed by Ace Peterson ([id number]) on 05/20/2023 6:08:39 PM Referred By: REFERRED SELF Confirmed By:Ace Peterson
--- NOTE | 2023-05-20 22:26 | XCELERA ---
[id number] \\[id number]
--- NOTE | 2023-05-20 23:32 | Cardiology Consultation ---
Date of Consultation May 20, 2023 Assessment & Plan (1) Epigastric pain: 2. Chronic multivessel CAD 3. Hypertension 4. Borderline right internal iliac artery aneurysm 5. Minimal total bilirubin elevation On presentation there was initial concern that patient's acute symptoms were secondary to ACS with subtle changes on serial ECGs. Underwent urgent cardiac catheterization which showed chronic multivessel disease but no acute high risk findings. Second HS TropI normal. His current symptoms are different than what he previously experienced with WI and do not feel current presentation secondary to his chronic CAD. Admitted for observation and further work-up of abdominal pain. From a cardiac standpoint recommend: Check echocardiogram Continue prior ASCVD secondary prevention meds. Previously on aspirin, statin. Add back beta-leida as heart rate allows. If stable overnight okay for discharge from a cardiac standpoint tomorrow. Follow-up with cardiology in 2 to 3 weeks. If refractory anginal symptoms in the future PCI versus CABG could be considered. History of Present Illness Attending Physician: Douglas Jennings MD History of Present Illness Mr. Shah is a very pleasant 63-year-old male with a history of coronary disease post prior WI and PCI to LAD who presents today with acute onset epigastric/abdominal pain. Patient is primarily Micronesian-speaking. He is here today with his and daughter. Daughter speaks Greenlandic. They recently moved from [place] 2 weeks ago to the area. Before that he received his medical care in the country of [place]. Prior WI in 2008. Since that time states he has had no other cardiac issues. Maintained on aspirin, beta-leida and statin. Has been out of medications recently. Acute abdominal pain began at rest. Denies any changes to his diet or changes in bowel habits. States current pain is different than what he had with his WI. That pain he describes as much more severe, burning in nature in his chest and radiating up into his neck. On arrival hemodynamically stable. Initial ECG showed sinus rhythm with LVH and inferolateral T wave inversions. Follow-up ECG showed more prominent lateral T wave inversions and biphasic T wave changes in V3/V4. Initial HS TropI borderline elevated at 23. Chest CTA negative for dissection, PE. Coronary calcifications noted. Abdominal CT unremarkable. Allergies Allergy/AdvReac Type Severity Reaction Status Date / Time No Known Allergies Allergy Unverified 05/20/23 14:32 Home Medications Medication Instructions Recorded Confirmed Type aspirin 81 mg tablet,delayed 81 mg PO DAILY 05/20/23 05/20/23 History release atorvastatin 20 mg tablet 20 mg PO DAILY 05/20/23 05/20/23 History enalapril maleate 20 mg tablet 20 mg PO DAILY 05/20/23 05/20/23 History omega-3 fatty acids 1,000 mg PO DAILY 05/20/23 05/20/23 History Patient History Medical History CAD (coronary artery disease) HLD (hyperlipidemia) HTN (hypertension) Surgical History Hx of heart artery stent Family History Other Heart disease Social History Smoking Status: Current every day smoker Hx Alcohol Use: No Hx Substance Use: No Preferred Language: Micronesian Communication Tools: [employer] Sales Service Route Manager Required: Yes Beliefs That Will Affect Care: None Current Living Situation: Family Feels Safe at Home: Yes Safety Concerns: Feels Safe At This Time Assistive Devices: Glasses Review of Systems Review of Systems: All systems reviewed & are unremarkable except as noted in HPI & below Physical Exam Physical Exam: General: Comfortable HEENT: Sclerae anicteric Lungs: Clear to auscultation bilaterally Cardiac: Regular rate and rhythm, no murmurs. Vascular: 2+ radial Abdomen: Soft, tender epigastric region Extremities: Well perfused, no peripheral edema Neuro: Nonfocal Psych: Alert orient x3, normal affect and mood Results & Data Vital Signs (Past 12 Hours) Vital Signs Temp Pulse Pulse Resp BP BP Pulse Ox 05/20/23 22:41 97.7 F 50 L 20 161/84 H 95 05/20/23 22:04 05/20/23 19:00 98.1 F 59 L 20 149/77 H 96 05/20/23 17:48 98.1 F 54 L 18 154/81 H 95 05/20/23 17:17 98.1 F 54 L 18 151/80 H 95 05/20/23 16:45 98.6 F 55 L 19 159/90 H 97 05/20/23 15:30 53 L 05/20/23 16:15 97.7 F 47 L 20 146/88 H 97 05/20/23 16:00 97.3 F L 50 L 18 170/89 H 97 05/20/23 15:45 97.7 F 54 L 18 171/90 H 98 05/20/23 15:30 97.7 F 58 L 18 175/78 H 97 05/20/23 15:15 97.7 F 62 20 173/74 H 97 05/20/23 14:47 71 18 158/90 H 96 05/20/23 13:39 57 L 17 145/82 H 97 05/20/23 13:00 48 L 17 147/92 H 97 05/20/23 12:30 54 L 12 171/90 H 96 05/20/23 12:33 54 L 05/20/23 12:10 50 L 21 97 05/20/23 12:02 53 L 23 166/82 H 97 05/20/23 11:43 59 L 21 164/128 H 96 05/20/23 11:38 99.0 F 53 L 18 164/128 H 96 O2 Del Method 05/20/23 22:41 Room Air 05/20/23 22:04 Room Air 05/20/23 19:00 Room Air 05/20/23 17:48 Room Air 05/20/23 17:17 Room Air 05/20/23 16:45 Room Air 05/20/23 15:30 05/20/23 16:15 Room Air 05/20/23 16:00 Room Air 05/20/23 15:45 Room Air 05/20/23 15:30 Room Air 05/20/23 15:15 Room Air 05/20/23 14:47 Room Air 05/20/23 13:39 05/20/23 13:00 05/20/23 12:30 05/20/23 12:33 05/20/23 12:10 05/20/23 12:02 05/20/23 11:43 05/20/23 11:38 Room Air PG Care Time/CCT Total # of Minutes Spent Total Time Spent with Patient: Total time spent is greater than 50% in coordination of care (as documented) at patient's floor/unit and/or counseling patient: Coding Level of Care Code 70454 OFFICE CONSULT LVL 5/55M Diagnoses Epigastric pain R10.13
[2023-05-21 07:39] LABS: Albumin Globulin Ratio 1.2 (0.9-2); Albumin Level 3.5 gm/dl (3.4-5.0); BUN Creatinine Ratio 12.8 (10-20); Bilirubin,Total 0.9 mg/dl (0.2-1.0); Calcium 9.1 mg/dl (8.6-10.3); Chol HDL Ratio 5.9 (0-5); Creatinine Clr Calc Pharmacy 76.2 ml/min; Est GFR (African American) 100.3 ml/min; Est GFR (Non-African American) 86.5 ml/min; Magnesium 1.9 mg/dl (1.7-2.4); Potassium 3.4 mmol/L (3.5-5.1); Total Protein 6.5 gm/dl (6.0-8.3)
[2023-05-21 07:55] LABS: Basophils # (auto) 0.06 K/uL (0-0.2); Basophils % (auto) 0.6 %; Eosinophils % (auto) 2.9 %; Hematocrit (blood only) 43.2 % (42.0-52.0); Hemoglobin 14.5 g/dl (14.0-18.0); Immature Granulocytes # (auto) 0.02 K/uL (0.01-0.20); Immature Granulocytes % (auto) 0.2 %; Lymphocytes # (auto) 2.38 K/uL (1.2-3.4); Lymphocytes % (auto) 22.9 %; Mean Corpuscular Hgb Conc 33.6 g/dL (32.0-36.0); Mean Corpuscular Volume 89.3 fL (80.0-100.0); Mean Platelet Volume 10.9 fL (9.4-12.4); Monocytes % (auto) 14.5 %; Neutrophils # (auto) 6.12 K/uL (1.40-6.50); Neutrophils % (auto) 58.9 %; Platelet Count 269 K/uL (130-400); RDW Coefficient of Variation 14.1 % (11.5-14.5); Red Blood Count 4.84 M/uL (4.70-6.10); White Blood Count 10.38 K/ul (4.8-10.8)
[2023-05-21] MEDS ORDERED: PANTOprazole 40 MG TAB PO SCH (09:00)
[2023-05-21] MEDS ORDERED: OMEGA-3 (PURIFIED FISH OIL) 1 GM CAP PO SCH (09:00)
[2023-05-21] MEDS ORDERED: ASPIRIN 81 MG ECTAB PO SCH (09:00)
[2023-05-21] MEDS ORDERED: ATORVASTATIN 20 MG TAB PO SCH (09:00)
[2023-05-21] MEDS ORDERED: ENALAPRIL MALEATE 10 MG TAB PO SCH (09:00)
[2023-05-21] MEDS ORDERED: POTASSIUM CHLORIDE CRTAB 20 MEQ TABCR PO STA (10:33)
--- NOTE | 2023-05-21 12:41 | Cardiology Consultation ---
Date of Consultation May 21, 2023 Assessment & Plan (1) Epigastric pain: (2) CAD (coronary artery disease): (3) Hx of heart artery stent: (4) HLD (hyperlipidemia): (5) HTN (hypertension): Plan 63-year-old male with longstanding history of chronic coronary disease status post coronary stent 2008 mid to distal left anterior descending. Patient presented yesterday with epigastric pain nausea and diaphoresis. Concerns raised regarding possible acute coronary syndrome and patient underwent diagnostic coronary angiography demonstrating chronic coronary artery disease with in-stent restenosis likely longstanding LAD stent. Additional disease as noted Echocardiogram with mild to moderate left dysfunction and following distal LAD distribution No evolution in EKG or enzymes suggest acute No arrhythmias on telemetry Impression 1. Epigastric pain findings do not suggest acute coronary syndrome as cause. Patient does admit to GI upset and indigestion 2. Chronic ischemic heart disease longstanding with extensive in-stent restenosis mid to distal left anterior descending and wall motion abnormality distal to the lesion with mild LV dysfunction Recommendations: Optimize cardiac medications. Beta-leida contraindicated due to resting bradycardia. Continue enalapril and aspirin without interruption Discontinue omega-3 fish oil Would maximize statin therapy. 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 Agustin Attending Physician: Avtar Agustin MD History of Present Illness Patient is a 63-year-old male, Citizen Of [place]-speaking hospitalized yesterday with with symptoms of abdominal pain epigastric pain and diaphoresis. 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 Symptoms waning on ER presentation but with EKG abnormalities with incomplete right bundle branch block T wave abnormalities lateral leads. Prior history notable for ischemic heart disease status post LAD coronary stent 2008 in [facility]. Underlying history of hypertension hyperlipidemia Patient compliant with medications per patient but with possible recent lapse. Lipid panel does not suggest ongoing treatment Patient underwent coronary angiography urgently yesterday study demonstrating diffuse coronary atherosclerosis. Coronary stent at the juncture of the mid and apical segment of the left anterior descending with long area of severe in-stent stenosis additional focal LAD stenosis proximal to a septal branch and prior to LAD stent. Distal right coronary branches occluded Cardiac enzymes and EKGs do not reflect acute coronary syndrome Echocardiogram demonstrates apical hypokinesis and mild LV dysfunction No recurrence of symptoms in hospital no arrhythmias Cardiac catheterization procedure notable for paradoxical agitation with sedation Patient sedentary at home. No tachyarrhythmias syncope or near syncope. No recent fevers or chills. No bleeding difficulties Allergies Allergy/AdvReac Type Severity Reaction Status Date / Time No Known Allergies Allergy Unverified 05/20/23 14:32 Home Medications Medication Instructions Recorded Confirmed Type aspirin 81 mg tablet,delayed 81 mg PO DAILY 05/20/23 05/20/23 History release atorvastatin 20 mg tablet 20 mg PO DAILY 05/20/23 05/20/23 History enalapril maleate 20 mg tablet 20 mg PO DAILY 05/20/23 05/20/23 History omega-3 fatty acids 1,000 mg PO DAILY 05/20/23 05/20/23 History Patient History Medical History CAD (coronary artery disease) HLD (hyperlipidemia) HTN (hypertension) Surgical History Hx of heart artery stent Family History Other Heart disease Social History Smoking Status: Current every day smoker Hx Alcohol Use: No Hx Substance Use: No Preferred Language: Citizen Of [place] Communication Tools: IPad Roll On Man Required: Yes Beliefs That Will Affect Care: None Current Living Situation: Family Feels Safe at Home: Yes Safety Concerns: Feels Safe At This Time Assistive Devices: Glasses Review of Systems Review of Systems: All systems reviewed & are unremarkable except as noted in Subjective Physical Exam Constitutional: WD/WN, vitals as above no acute distress ENMT: external ear and nose normal, oropharynx normal Neck: trachea midline, no thyromegaly Respiratory: normal respiratory effort, lungs clear to auscultation Cardiovascular: RRR, no murmur, no edema Vessels: radial pulses present Gastrointestinal (Abdomen): normal bowel sounds, soft, nontender, no hepatosplenomegaly Musculoskeletal: no cyanosis or clubbing, extremities motor strength 5/5 Results & Data Vital Signs (Past 12 Hours) Vital Signs Temp Pulse Pulse Resp BP Pulse Ox O2 Del Method 05/21/23 10:56 36.6 C 56 L 19 134/76 95 Room Air 05/21/23 07:55 53 L 05/21/23 07:05 36.7 C 62 19 125/69 95 Room Air 05/21/23 02:47 36.8 C 52 L 20 130/75 95 Room Air Laboratory Results Laboratory Results - last 24 hr 05/20/23 05/20/23 05/21/23 11:43 13:14 06:52 WBC 10.38 RBC 4.84 Hgb 14.5 Hct 43.2 MCV 89.3 MCH 30.0 MCHC 33.6 RDW Std Deviation 46.0 RDW Coeff of Laanna 14.1 Plt Count 269 MPV 10.9 Immature Gran % (Auto) 0.2 Neut % (Auto) 58.9 Lymph % (Auto) 22.9 Will % (Auto) 14.5 Eos % (Auto) 2.9 Baso % (Auto) 0.6 Neut # (Auto) 6.12 Lymph # (Auto) 2.38 Will # (Auto) 1.50 H Eos # (Auto) 0.30 Baso # (Auto) 0.06 Immature Gran # (Auto) 0.02 Sodium Potassium Chloride Carbon Dioxide Anion Gap BUN Creatinine Est Cr Clr Drug Dosing Est GFR ( Amer) Est GFR (Non-Af Amer) BUN/Creatinine Ratio Glucose Estimat Average Glucose Hemoglobin A1c Calcium Magnesium Total Bilirubin AST ALT Alkaline Phosphatase Troponin I High Sens 18.5 D Total Protein Albumin Globulin Albumin/Globulin Ratio Triglycerides Cholesterol LDL Cholesterol, Calc VLDL Cholesterol, Calc HDL Cholesterol Cholesterol/HDL Ratio Hepatitis C Ab (EIA) Pending 05/21/23 05/21/23 05/21/23 06:52 06:52 10:45 WBC RBC Hgb Hct MCV MCH MCHC RDW Std Deviation RDW Coeff of Alanna Plt Count MPV Immature Gran % (Auto) Neut % (Auto) Lymph % (Auto) Will % (Auto) Eos % (Auto) Baso % (Auto) Neut # (Auto) Lymph # (Auto) Will # (Auto) Eos # (Auto) Baso # (Auto) Immature Gran # (Auto) Sodium 137 Potassium 3.4 L Chloride 107 Carbon Dioxide 25 Anion Gap 5 BUN 12 Creatinine 0.94 Est Cr Clr Drug Dosing 76.2 Est GFR ( Amer) 100.3 Est GFR (Non-Af Amer) 86.5 BUN/Creatinine Ratio 12.8 Glucose 130 H Estimat Average Glucose Pending Hemoglobin A1c Pending Calcium 9.1 Magnesium 1.9 2.0 Total Bilirubin 0.9 AST 17 ALT 19 Alkaline Phosphatase 77 Troponin I High Sens Total Protein 6.5 Albumin 3.5 Globulin 3.0 Albumin/Globulin Ratio 1.2 Triglycerides 152 H Cholesterol 241 H LDL Cholesterol, Calc 170 VLDL Cholesterol, Calc 30 HDL Cholesterol 41 Cholesterol/HDL Ratio 5.9 H Hepatitis C Ab (EIA)
--- NOTE | 2023-05-21 12:56 | Cardiology Progress Note ---
Date of Service May 21, 2023 Assessment & Plan (1) Epigastric pain: Plan: 2. Chronic multivessel CAD 3. Hypertension 4. Borderline right internal iliac artery aneurysm 5. ICM -- EF 40-45% Apical and inferolateral wma 6. Hyperlipidemia - LDL 170 No chest pain. Abdominal pain resolved. Hemodynamically and electrically stable. No access site complications. From a cardiac standpoint OK with discharge today. [facility] will need cardiology follow-up for chronic ischemic heart disease. Home on: -- Add Toprol XL 25mg daily (OK with bradycardia in 50s). -- Continue prior enalapril 20mg daily. -- Continue ASA -- Continue atorvatatin 80mg daily -- Can stop fish oil -- continue PPI Follow-up with cardiology in 2 to 3 weeks. If refractory anginal symptoms in future on max medical therapy PCI versus CABG could be considered. Admission and Anticipated Discharge Date Admission Date: May 20, 2023 Subjective Family at bedside and translated for patient. Denies any pain today. Appetite good. No chest symptoms. No other new concerns. Review of Systems Review of Systems: All systems reviewed & are unremarkable except as noted in HPI & below Physical Exam Physical Exam: General: Comfortable HEENT: Sclerae anicteric Lungs: Clear to auscultation bilaterally Cardiac: Regular rate and rhythm, no murmurs. Vascular: 2+ radial - no hematoma. Abdomen: Soft, tender epigastric region Extremities: Well perfused, no peripheral edema Neuro: Nonfocal Psych: Alert orient x3, normal affect and mood Results & Data Vital Signs (Past 12 Hours) Vital Signs Temp Pulse Pulse Resp BP Pulse Ox O2 Del Method 05/21/23 10:56 97.9 F 56 L 19 134/76 95 Room Air 05/21/23 07:55 53 L 05/21/23 07:05 98.1 F 62 19 125/69 95 Room Air 05/21/23 02:47 98.2 F 52 L 20 130/75 95 Room Air PG Care Time/CCT Total # of Minutes Spent Total Time Spent with Patient: Total time spent is greater than 50% in coordination of care (as documented) at patient's floor/unit and/or counseling patient: Coding Level of Care Code 08153 SUB INP/OBS CARE 2/35MIN Diagnoses Epigastric pain R10.13
--- NOTE | 2023-05-21 17:15 | Discharge Summary ---
Date of Service May 21, 2023 Admission HPI Per Admitting Provider Pt is a 63 y/o M with hx of CAD s/p stent (2008), HTN, HLD came to the ER with 2 hr hx of substernal CP, abd pain and diaphoresis. 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 At bedside (used the garage hand service): Per pt his symptoms started with epigastric abd pain, then he became pale and then started to have diaphoresis Now the abd pain is better. Denied any acute Nausea, CP, SOB or ARMIJO. No recent diarrhea, vomiting, fever, rash or URI symptoms Has been having heart burn symptoms and frequent belching (lore after meals) for 2 years but denied any dysphagia. Pt does smoke daily but denied any ETOH intake or prior hx of GI bleed. Principal Diagnosis chronic multivessel CAD Epigastric pain possibly GERD Hyperlipidemia Discharge Exam Patient was seen and examined on the day of discharge. He was comfortable in bed and was surrounded by his family ( and children), permission obtained to have his daughter help with translation On exam- Appears well CV- regular rate and rhythm, no murmurs/rubs Pulm- no wheezing/rhonchi/rales Extr- right wrist +pulse with no swelling or bruising noted. No lower extremity edema Discharge Data Allergies Allergy/AdvReac Type Severity Reaction Status Date / Time No Known Allergies Allergy Unverified 05/20/23 14:32 Consultations 05/20/23 13:47 ED Decision to Admit Stat 05/20/23 15:04 Consult Cardiology Routine 05/21/23 10:30 Consult Cardiology Routine Procedures Performed Operation Date: 05/20/23 14:00 Actual Procedures s Cineradiography w/Routine Exam - Stefano Whitman MD p Cath, Left with Cors and Vent - Stefano Whitman MD Ordered Studies 05/20/23 12:23 CT angio abdomen pelvis w con Stat CT angio chest dissec wo/w con Stat 05/20/23 13:35 CL Cath Imgs for PACS use only Stat Hospital Course (1) Chest pain: (2) Epigastric pain: (3) CAD (coronary artery disease): (4) Hx of heart artery stent: (5) HTN (hypertension): (6) HLD (hyperlipidemia): Plan Mr Ricardo Shah is a 63 year old [place] speaking man with a history of CAD with distant history of stenting to his LAD and hyperlipidemia who recently moved to [facility] [place] presents to ER 05/20 with epigastric discomfort. Patient's EKG was abnormal and showed lateral biphasic T waves. He was seen by Cardiology and had an urgent PCI which showed chronic multivessel coronary artery disease but was not consistent with ACS (see below). During catheterization, he experienced a paradoxical agitation with sedation and pulled out his sheath. Because of this, it was recommended by Cardiology that future interventions (if needed) will need to be done with anesthesia. He was medically optimized with addition of toprol 25mg daily. His heart rate was in the 50s but he was cleared to be on BB so long as his heart rate doesn't drop further. He was already on elalapril and aspirin which but he received a new [place]. He was started on protonix and his atorvastatin was increased to 80mg daily due to suboptimal hyperlipidemia control despite being on atorvastatin 20mg previously. He was seen by Dr Whitman here and can follow up with him in the office. [facility] 05/21/2023 - Sequential mid LAD lesions (60%, 80%). Latemid LAD stent with diffuse in- stent restenosis up to 95%. Subtotally occluded small mid circumflex with MERRILL I flow in small OM2 100% chronic total occlusion of right posterior AV branch. 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 1) Lipitor was increased to 80mg daily 2) Started on Metoprolol XL 25mg daily 3) Protonix 40mg daily 4) [place] 3 was discontinued Please follow up with Dr Whitman for your heart Pending Studies at Discharge: No Stand-Alone Forms: My [facility], Smoking Cessation Medications and DC Order Prescriptions: New atorvastatin 40 mg Tablet 80 mg PO DAILY 60 Days Qty: 120 0RF pantoprazole 40 mg Tablet,Delayed Release (Dr/Ec) 40 mg PO QAM 30 Days Qty: 30 0RF metoprolol succinate [Toprol XL] 25 mg tablet extended release 24 hr 25 mg PO .qhs Qty: 30 0RF Continued enalapril maleate 20 mg Tablet 20 mg PO DAILY aspirin 81 mg Tablet,Delayed Release (Dr/Ec) 81 mg PO DAILY Discontinued atorvastatin 20 mg tablet 20 mg PO DAILY [place] 3 Capsule 1,000 mg PO DAILY Discharge Orders: Discharge Order (Routine); Ordered 05/21/23 Ordered By: Avtar Huitron/Other Patient Handouts: All About Cholesterol Control, CAD, Cardiac Cath Transradial, ED Cardiac Cath Post Bleed Admission Data Admit Date/Time: 05/20/23 14:45 Attending Provider: Avtar Agustin Admit Provider: Stefano Whitman Primary Care Provider: PCP,NO Other Providers: Douglas Jennings ; Stefano Whitman ; Abelino Kiser Other Interventions: Discharge Summary Assessment (RN) Last Done: 05/21/23 14:23
[2023-05-22 07:59] LABS: Estimated Average Glucose 126 mg/dl
[2023-05-22] MEDS ORDERED: ATORVASTATIN 40 MG TAB PO SCH (09:00)
== END 2023-05-21 14:55 | disposition home or self-care (01) ==
LOC: ED 11:34 → 2S 13:59 → ASU 13:59 → SUATTDRO 14:45

== ENCOUNTER 2025-08-01 20:11 | Observation (INO) ==
[2025-08-01 20:39] LABS: Hematocrit (blood only) 46.0 % (42.0-52.0); Hemoglobin 14.6 g/dl (14.0-18.0); Immature Granulocytes # (auto) 0.02 K/uL (0.01-0.20); Immature Granulocytes % (auto) 0.2 %; Mean Corpuscular Hemoglobin 29.4 pg (25.0-34.0); Mean Corpuscular Volume 92.7 fL (80.0-100.0); Platelet Count 315 K/uL (130-400); RDW Standard Deviation 48.1 fL (36.4-46.3); Red Blood Count 4.96 M/uL (4.70-6.10); White Blood Count 9.30 K/ul (4.8-10.8)
[2025-08-01] MEDS: SODIUM CHLORIDE 0.9% 500 ML IV SCH (20:40)
--- NOTE | 2025-08-01 20:57 | Emergency Department Note ---
History of Present Illness General Chief complaint: Abnormal Labs/Diagnostic Testing Stated complaint: HIGH POTASSIUM LEVELS, ADVISED BY NURSE Time Seen by Provider: 08/01/25 20:18 History of Present Illness This 65-year-old male presents the ER that was sent in by his PCP for elevated potassium. Patient states he has got ongoing fatigue unchanged. 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 His daughter is interpreting for his request. Patient denies chest pain, dyspnea, abdominal pain, joint pains or any other medical complaints. Home Medications Medication Instructions Recorded Confirmed Type aspirin 81 mg tablet,delayed 81 mg PO DAILY 05/20/23 08/01/25 History release epinephrine 0.3 mg/0.3 mL 0.3 mg (0.3 mL) IM Q10M PRN 04/15/24 08/01/25 Rx injection, auto-injector (EpiPen anaphylaxis #2 ea 2-Enoc) atorvastatin 80 mg tablet 80 mg PO DAILY #90 tabs 01/09/25 08/01/25 Rx enalapril maleate 20 mg tablet 20 mg PO DAILY #90 tabs 01/09/25 08/01/25 Rx pantoprazole 40 mg tablet,delayed 40 mg PO QAM 90 days #90 tabs 01/09/25 08/01/25 Rx release ezetimibe 10 mg tablet (Zetia) 10 mg PO DAILY #90 tabs 01/13/25 08/01/25 Rx celecoxib 100 mg capsule (Celebrex) 100 mg PO BID PRN pain #60 caps 04/22/25 08/01/25 Rx mecobalamin (vitamin B12) 1,000 1,000 mcg PO DAILY 04/22/25 08/01/25 History mcg chewable tablet escitalopram oxalate 5 mg tablet 5 mg PO DAILY #90 tabs 07/04/25 08/01/25 Rx metoprolol succinate 25 mg 25 mg PO HS 08/01/25 08/01/25 History tablet,extended release 24 hr (Toprol XL) Allergies Allergy/AdvReac Type Severity Reaction Status Date / Time bee venom protein (honey bee) Allergy Severe Anaphylaxis Verified 08/01/25 21:54 Past Med/Surg History Problem List (Updated 04/15/24 @ 12:03 by Fredy Whiteside III, GINA) Fatigue (Acute) Elevated troponin (Acute) Irritable mood Vitamin B12 deficiency 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) HLD (hyperlipidemia) (Chronic) HTN (hypertension) (Chronic) CAD (coronary artery disease) (Chronic) Hx of heart artery stent (Chronic) Medical History (Updated 08/01/25 @ 21:55 by Inocencia Martinez PA-C) Epigastric pain Chest pain Abnormal ECG Unstable angina Surgical History (Updated 04/15/24 @ 12:03 by GINA Garcia III) History of tonsillectomy Family History Father Myocardial infarction Hypertension Other Heart disease Social History Smoking Status: Current some day smoker Tobacco Type: Cigarettes Age Started Using Tobacco: 26; packs per day: 0.5; Second Hand Exposure: No; Do You Dip or Chew Tobacco: No; Hx Alcohol Use: No Hx Substance Use: No Preferred Language: Ivorian Communication Tools: IPad Crop Setting Out Machine Operator Required: Yes Beliefs That Will Affect Care: None marital status: Current Living Situation: Spouse and Family current occupational status: employed 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 How many Children do You have: 1 Feels Safe at Home: Yes Childhood Exposure to Second-Hand Smoke: No Diet: regular Dental Care, Regularly: No Physical Activity Frequency: Does not Exercise Seatbelt Use: always Sunscreen Use: Yes Assistive Devices: None and Glasses Review of Systems A total of 10 systems reviewed and were otherwise negative Physical Exam Vital Signs Vital Signs - 24 hr 08/01/25 20:13 08/01/25 20:21 08/01/25 22:12 Temperature 36.8 C Temperature Source Temporal Artery Scan Pulse Rate 61 75 Pulse Rate [Left] 63 Respiratory Rate 14 20 20 Respiratory Effort / Characteristics Non-Labored Spontaneous Respiratory Depth Normal Blood Pressure 151/82 H Blood Pressure [Left Arm] 162/98 H Blood Pressure Mean 105 Blood Pressure Mean [Left Arm] 119 Pulse Oximetry 97 95 94 Oxygen Delivery Method Room Air Room Air Room Air Sepsis Recent Fever Within 48 Hours No Sepsis New/Unexplained Change in Mental Status No Sepsis Action Taken by Nursing No Action Required VITALS: Vitals are noted on the nurse's note and reviewed by myself. Vital signs stable. GENERAL: Pleasant gentleman, in no acute distress, nondiaphoretic, well- developed well-nourished. SKIN: Capillary reflex less than 2 seconds. HEENT: Normocephalic. PERRLA. EOMI. Nares patent. Mucous membranes moist. Neck is supple without nuchal rigidity. HEART: Regular rate and rhythm LUNGS: Clear to auscultation bilaterally without wheezes, rales or rhonchi. No retractions or accessory muscle use. ABDOMEN: Positive bowel sounds x 4. Normal tympanic percussion. Soft, nontender, without masses or organomegaly. Perez sign negative. No guarding or rebound tenderness. no CVA tenderness MUSCULOSKELETAL: No gross musculoskeletal defects. NEURO: Patient was alert and oriented to person place and time. No focal neurological deficits. Course Administered Medications Discontinued Medications Sodium Chloride (Nss) 500 mls @ 999 mls/hr IV .Q31M CHARITY Stop: 08/01/25 21:00 Last Admin: 08/01/25 20:40 Dose: 999 mls/hr Documented By: SHAMAR Medical Decision Making Medical Records Attestation: I reviewed the patient's medical records. Home Medications Current Medication List: was personally reviewed by me Laboratory Data Attestation: I reviewed the patient's lab results. 08/01/25 20:30 08/01/25 20:30 Lab Results 08/01/25 Range/Units 20:30 WBC 9.30 (4.8-10.8) K/ul RBC 4.96 (4.70-6.10) M/uL Hgb 14.6 (14.0-18.0) g/dl Hct 46.0 (42.0-52.0) % MCV 92.7 (80.0-100.0) fL MCH 29.4 (25.0-34.0) pg MCHC 31.7 L (32.0-36.0) g/dL RDW Std Deviation 48.1 H (36.4-46.3) fL RDW Coeff of Alanna 14.3 (11.5-14.5) % Plt Count 315 (130-400) K/uL MPV 10.8 (9.4-12.4) fL Immature Gran % (Auto) 0.2 % Neut % (Auto) 46.7 % Lymph % (Auto) 32.6 % [place] % (Auto) 13.4 % Eos % (Auto) 6.2 % Baso % (Auto) 0.9 % Neut # (Auto) 4.34 (1.40-6.50) K/uL Lymph # (Auto) 3.03 (1.20-3.40) K/uL [place] # (Auto) 1.25 H (0.11-0.59) K/uL Eos # (Auto) 0.58 H (0.00-0.50) K/uL Baso # (Auto) 0.08 (0.00-0.20) K/uL Immature Gran # (Auto) 0.02 (0.01-0.20) K/uL Sodium 143 (136-145) mmol/L Potassium 4.0 D (3.5-5.1) mmol/L Chloride 107 (98-107) mmol/L Carbon Dioxide 30 (21-32) mmol/L Anion Gap 6 (3-11) BUN 13 (6-23) mg/dl Creatinine 1.24 (0.6-1.4) mg/dl Est Cr Clr Drug Dosing 61.1 ml/min eGFR 64.93 BUN/Creatinine Ratio 10.5 (10-20) Glucose 84 (70-99(Fasting)) mg/dl Calcium 9.5 (8.6-10.3) mg/dl Magnesium 2.2 (1.7-2.4) mg/dl Total Bilirubin 1.2 H (0.2-1.0) mg/dl AST 25 (13-39) U/L ALT 29 (7-52) U/L Alkaline Phosphatase 95 (34-104) U/L Total Creatine Kinase 139 (30-223) U/L Troponin I High Sens 31.5 H (0-20) pg/ml Total Protein 7.1 (6.0-8.3) gm/dl Albumin 3.7 (3.4-5.0) gm/dl Globulin 3.4 (2.5-4.0) gm/dl Albumin/Globulin Ratio 1.1 (0.9-2) TSH 1.181 (0.300-4.500) uIu/ml Imaging Data Attestation: I personally reviewed and interpreted this imaging study as follows: MDM Narrative Prior records/ancillary studies reviewed and summarized above. Nursing notes reviewed. Additional history obtained from family. The patient's history was concerning for elevated potassium. Differential diagnosis: Etiologies such as lab error, hemolysis, metabolic, infection, hypo/hyperglycemia, electrolyte abnormalities, cardiac sources, intracerebral event, toxicologic, neurologic, as well as others were entertained. Physical examination: As above. ER treatment provided: IV Lock An order was placed for continuous cardiac monitoring. The monitor shows a rate of 60-100 with a sinus rhythm per my interpretation. IV fluids On reassessment the patient felt better. Diagnostics interpretation by me: ECG: Ordered for elevated potassium EKG: Normal sinus, left axis, no acute ST-T wave changes, rate of 59. Impression sinus bradycardia left axis deviation independently interpreted by myself The labs Independently Interpreted by myself revealed normal potassium. Elevated troponin and repeat was ordered Imaging studies: Chest x-ray with no acute consolidation, pneumothorax or free air per my independent or potation Consultation: A consultation was placed with the hospitalist. The case was discussed and diagnostics were reviewed. The patient was evaluated in the ER for further treatment. Exam and history seem consistent with elevated troponin. EKG was nonischemic. Repeat troponin was ordered. Medicine was consulted case discussed. He will be evaluated for possible admission. Patient and daughter are agreeable. By the evaluation outlined above emergent etiologies such as infection, electrolyte abnormalities, intracerebral event, toxologic, neurologic, abnormalities blood glucose, metabolic, as well as others were deemed relatively unlikely. The pt informed about the findings as listed above. All questions were answered and pleased with the treatment. The chart was completed utilizing [employer] Speech voice recognition software. Grammatical errors, random word insertions, pronoun errors, and incomplete sentences are an occassional consequence of this system due to software limitations, ambient noise, and hardware issues. Any formal questions or concerns about the content, text, or information contained within the body of this dictation should be directly addressed to the physician technical assistant for clarification. Impression & Plan Elevated troponin, Fatigue Discharge Plan Visit Data Chief Complaint: Abnormal Labs/Diagnostic Testing Stated Complaint: HIGH POTASSIUM LEVELS, ADVISED BY NURSE ED Provider: Alejandro Peralta ED Midlevel Provider: Inocencia Martinez Discharge Problem: Elevated troponin, Fatigue Patient Disposition: Being Evaluated by Hospitalist Condition: Good Forms Stand Alone Forms: My [facility] Prescriptions Prescriptions: No Action ezetimibe [Zetia] 10 mg tablet 10 mg PO DAILY Qty: 90 3RF escitalopram oxalate 5 mg tablet 5 mg PO DAILY Qty: 90 3RF epinephrine [EpiPen 2-Enoc] 0.3 mg/0.3 mL auto-injector 0.3 mg IM Q10M PRN (Reason: anaphylaxis) Qty: 2 0RF Rx Instructions: for 2 doses enalapril maleate 20 mg tablet 20 mg PO DAILY Qty: 90 3RF atorvastatin 80 mg tablet 80 mg PO DAILY Qty: 90 3RF pantoprazole 40 mg tablet,delayed release (DR/EC) 40 mg PO QAM 90 Days Qty: 90 3RF mecobalamin (vitamin B12) 1,000 mcg tablet,chewable 1,000 mcg PO DAILY celecoxib [Celebrex] 100 mg capsule 100 mg PO BID PRN (Reason: pain) Qty: 60 5RF aspirin 81 mg Tablet,Delayed Release (Dr/Ec) 81 mg PO DAILY metoprolol succinate [Toprol XL] 25 mg tablet extended release 24 hr 25 mg PO HS Referrals Referrals: Fredy Whiteside III, CRNP [Primary Care Provider] -
[2025-08-01 21:09] LABS: Alanine Aminotransferase 29.0 U/L (7-52); Albumin Globulin Ratio 1.1 (0.9-2); Alkaline Phosphatase 95.0 U/L (34-104); Anion Gap 6.0 (3-11); Bilirubin,Total 1.2 mg/dl (0.2-1.0); Blood Urea Nitrogen 13.0 mg/dl (6-23); Calcium 9.5 mg/dl (8.6-10.3); Carbon Dioxide 30.0 mmol/L (21-32); Chloride 107.0 mmol/L (98-107); Creatine Kinase 139.0 U/L (30-223); Creatinine Clr Calc Pharmacy 61.1 ml/min; Globulin 3.4 gm/dl (2.5-4.0); Glucose 84.0 mg/dl (70-99(Fasting)); Magnesium 2.2 mg/dl (1.7-2.4); Potassium 4.0 mmol/L (3.5-5.1); Sodium 143.0 mmol/L (136-145); Total Protein 7.1 gm/dl (6.0-8.3)
[2025-08-01 21:21] LABS: Thyroid Stimulating Hormone 1.181 uIu/ml (0.300-4.500)
--- NOTE | 2025-08-01 22:07 | History & Physical Report ---
Date of Service August 01, 2025 Assessment & Plan (1) Dyspnea on exertion: (2) CAD (coronary artery disease): (3) Hx of heart artery stent: (4) HTN (hypertension): Plan Ricardo is a 65yo male with hx CAD with stent placement ~15y ago, HTN, HLD, and mood disorder presenting to the ED due to PCP's concern about elevated potassium (5.6) on 07/31/25, however due to symptoms of dyspnea on exertion with his cardiac history, admitting for observation and pursuing exercise stress echo tomorrow 08/02/25. #Dyspnea on exertion #CAD with stent Reports of SOB and heavy breathing upon light exertion concerning given cardiac history of CAD with past stent placement EKG with sinus bradycardia, LAD, nonspecific IVCD, LVH, and nonspecific T-wave abnormality Initial troponin 31.5 not overly concerning especially with no current symptoms, but trending to peak - re-order troponin and EKG for any new chest pain or SOB - ordered exercise stress TTE, NPO from midnight - continue home atorvastatin 80mg daily, ezetimibe 10mg daily - observation on telemetry #HTN continue home enalapril 20mg daily, metoprolol succinate 25mg HS #Hyperkalemia, resolved 5.6 -> 4.0 today 08/01/25 - BMP AM Chronic, stable: GERD- pantoprazole 40mg qAM mood disorder- Lexapro 5mg daily VTE ppx: lovenox Dispo: med-tele History of Present Illness Chief Complaint: activity intolerance Primary Care Provider: Fredy Whiteside III, GINA Ricardo is a 65yo male with hx CAD with stent placement ~15y ago, HTN, HLD, and mood disorder presenting to the ED due to PCP's concern about elevated potassium (5.6) on 07/31/25. Daughter interpreting from [employer] due to request. States he has been feeling okay most of the time in the past few weeks, but notes he's been breathing heavily with rather minimal exertion, including going up one flight of stars at home. Daughter states he sounds out of breath upon this exertion, but had no chest pain, chest tightness, dizziness, lightheadedness, palpitations, or fainting. Reports one instance about 2wks ago when he had an episode of heavy breathing and cold sweats after minimal exertion one night, resolved that night but the next day he had cough and congestion. Notes cough has been lingering and intermittent but improving. Was not tested for COVID or flu. Does note prior history of cigarette smoking and current daily vaping, though interested in cutting back. ER course: NS 500cc bolus Allergies Allergy/AdvReac Type Severity Reaction Status Date / Time bee venom protein (honey bee) Allergy Severe Anaphylaxis Verified 08/01/25 21:54 Home Medications Medication Instructions Recorded Confirmed Type aspirin 81 mg tablet,delayed 81 mg PO DAILY 05/20/23 08/01/25 History release epinephrine 0.3 mg/0.3 mL 0.3 mg (0.3 mL) IM Q10M PRN 04/15/24 08/01/25 Rx injection, auto-injector (EpiPen anaphylaxis #2 ea 2-Enoc) atorvastatin 80 mg tablet 80 mg PO DAILY #90 tabs 01/09/25 08/01/25 Rx enalapril maleate 20 mg tablet 20 mg PO DAILY #90 tabs 01/09/25 08/01/25 Rx pantoprazole 40 mg tablet,delayed 40 mg PO QAM 90 days #90 tabs 01/09/25 08/01/25 Rx release ezetimibe 10 mg tablet (Zetia) 10 mg PO DAILY #90 tabs 01/13/25 08/01/25 Rx celecoxib 100 mg capsule (Celebrex) 100 mg PO BID PRN pain #60 caps 04/22/25 Rx mecobalamin (vitamin B12) 1,000 1,000 mcg PO DAILY 04/22/25 08/01/25 History mcg chewable tablet escitalopram oxalate 5 mg tablet 5 mg PO DAILY #90 tabs 07/04/25 08/01/25 Rx metoprolol succinate 25 mg 25 mg PO HS 08/01/25 08/01/25 History tablet,extended release 24 hr (Toprol XL) Past Med/Surg History Problem List (Updated 04/15/24 @ 12:03 by Fredy Whiteside III, GINA) Dyspnea on exertion Fatigue (Acute) Elevated troponin (Acute) Irritable mood Vitamin B12 deficiency 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) HLD (hyperlipidemia) (Chronic) HTN (hypertension) (Chronic) CAD (coronary artery disease) (Chronic) Hx of heart artery stent (Chronic) Medical History (Updated 08/01/25 @ 23:05 by Gopi Robb DO) Epigastric pain Chest pain Abnormal ECG Unstable angina Surgical History (Updated 04/15/24 @ 12:03 by GINA Garcia III) History of tonsillectomy Family History Father Myocardial infarction Hypertension Other Heart disease Social History Smoking Status: Current some day smoker Tobacco Type: Cigarettes Age Started Using Tobacco: 26; packs per day: 0.5; Second Hand Exposure: No; Do You Dip or Chew Tobacco: No; Hx Alcohol Use: No Hx Substance Use: No Preferred Language: [place] Communication Tools: IPad Urgent Care Physician Required: Yes Beliefs That Will Affect Care: None marital status: Current Living Situation: Spouse and Family current occupational status: employed 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 How many Children do You have: 1 Feels Safe at Home: Yes Childhood Exposure to Second-Hand Smoke: No Diet: regular Dental Care, Regularly: No Physical Activity Frequency: Does not Exercise Seatbelt Use: always Sunscreen Use: Yes Assistive Devices: None and Glasses Physical Exam Physical Exam: Gen: A&Ox3, appearing in no acute distress, satting mid-upper 90s on room air HEENT: EOM intact, anicteric sclerae, PERRL b/l CV: bradycardic regular rhythm, +s1/s2, no m/r/g; 2+ carotid and radial pulses b/l Resp: mildly tachypneic, lungs clear to auscultation b/l, no wheeze/rales/rhonchi GI/Abd: normoactive BS, no tenderness to palpation, no guarding MSK: no edema of LE, nontender to palpation; 5/5 strength of b/l UE and LE - unable to assess ambulation at time of examination in ER room Neuro: no facial droop, no focal deficits, speech intact, wiggles toes on command Psych: good eye contact, mood-affect congruence Results & Data Results & Data Vital Signs (Past 12 Hours) Vital Signs Temp Pulse Resp BP Pulse Ox O2 Del Method 08/01/25 20:21 75 20 95 Room Air 08/01/25 20:13 36.8 C 61 14 151/82 H 97 Room Air Supervising Physician Co-Signing Physician Notes Patient seen and examined, chart reviewed, case discussed with Dr. Robb and I agree with the assessment and plan as above. In brief, patient is a 65yo male with history of CAD s/p stent placement many years ago, HTN, HLP presenting at the request of his PCP for hyperkalemia noted on routine labs. K was 5.6, now 4. Upon further questioning patient does endorse some MERAZ and decreased exercise tolerance. No chest pain. On exam he is afebrile, HD stable, NAD Skin - no rash HEENT - MMM, No JVD Heart - +S1/S2, regular, no m/r/g Lungs - CTA Abd - soft, NT/ND Ext - warm, well perfused Labs and images reviewed Troponin minimally elevated at 31.5 --> 33 EKG with some non-specific ST-T wave changes Assessment/Plan: 65yo with HTN, HLP, known CAD with stent in place presenting with MERAZ, decreased exercise tolerance. No chest pain. Minimal troponin elevation and some non-specific ST-T wave changes -Admit to medical with telemetry -Trend troponin to peak -Stress echo ordered for AM -Continue ASA, Atorvastatin, Zetia, Enalapril, Metoprolol to be given HS -Remainder as above Resident Activity Tracking Resident Involvement: Resident Care Provided Care Provided: Adult Hospital Medicine (2) CAD (coronary artery disease) Associated angina: without angina Coronary Disease-Associated Artery/Lesion type: [place] artery [place] vs. transplanted heart: [place] heart Qualified Code(s): I25.10 - Atherosclerotic heart disease of [place] coronary artery without angina pectoris (4) HTN (hypertension) Hypertension type: primary hypertension Qualified Code(s): I10 - Essential (primary) hypertension
--- NOTE | 2025-08-01 22:59 | XRay Report ---
Exam(s): XR CXR 1 VIEW EXAM: XR Chest, 1 View CLINICAL HISTORY: Reason for exam: weakness. TECHNIQUE: Frontal view of the chest. COMPARISON: No relevant prior studies available. FINDINGS: Lungs: No confluent consolidation or overt edema. Pleural space: No pleural effusion. No pneumothorax. Mediastinum: Unremarkable. Bones/joints: No acute fracture. Calcific tendinopathy right shoulder. Upper abdomen: Unremarkable as visualized. IMPRESSION: No acute cardiopulmonary disease. Electronically signed by: Grey Ruelas M.D. 08/01/25 22:58 PM
[2025-08-02] MEDS ORDERED: MELATONIN 3 MG TAB PO PRN (01:42)
[2025-08-02] MEDS ORDERED: CELECOXIB 100 MG CAP PO PRN (01:42)
[2025-08-02] MEDS ORDERED: ACETAMINOPHEN 325 MG TAB PO PRN (01:42)
[2025-08-02] MEDS ORDERED: POLYETHYLENE (MIRALAX) 17 GM PACK PO PRN (01:42)
[2025-08-02] MEDS ORDERED: EPINEPHrine INJ 1 MG/ML AMP IM PRN (01:47)
[2025-08-02] MEDS: ENOXAPARIN INJ 40 MG/0.4 ML SYR SQ ONE (02:20)
[2025-08-02 02:33] VITALS: TEMP 97.7
[2025-08-02 02:59] LABS: Anion Gap 4.0 (3-11); Blood Urea Nitrogen 14.0 mg/dl (6-23); Calcium 8.9 mg/dl (8.6-10.3); Carbon Dioxide 26.0 mmol/L (21-32); Chloride 110.0 mmol/L (98-107); Creatinine Clr Calc Pharmacy 68.2 ml/min; Glucose 152.0 mg/dl (70-99(Fasting)); Potassium 3.9 mmol/L (3.5-5.1); Sodium 140.0 mmol/L (136-145)
[2025-08-02] MEDS ORDERED: CYANOCOBALAMIN (B-12) 500 MCG TABLET PO SCH (09:00)
[2025-08-02] MEDS: ENALAPRIL MALEATE 10 MG TAB PO SCH (09:10)
[2025-08-02] MEDS: EZETIMIBE 10 MG TAB PO SCH (09:11)
[2025-08-02] MEDS: ESCITALOPRAM OXALATE 10 MG TAB PO SCH (09:11)
[2025-08-02] MEDS: ATORVASTATIN 40 MG TAB PO SCH (09:11)
[2025-08-02] MEDS: ASPIRIN 81 MG ECTAB PO SCH (09:12)
--- NOTE | 2025-08-02 11:08 | Discharge Summary ---
Discharge Summary Date of Service August 02, 2025 Principal Dx & Hospital Course #1 = Principal Diagnosis (1) Hyperkalemia: (2) Dyspnea on exertion: (3) CAD (coronary artery disease): (4) Hx of heart artery stent: (5) HTN (hypertension): Plan Ricardo Shah is a 65 year old male observed at [facility] on August 01, 2025 due to hyperkalemia. This resolved spontaneously on labs in the ER without intervention and just recommended he makes sure he is not using a potassium salt on his food. There was also some concern about exercise intolerance. Serial troponin tests were stable. D-dimer was normal. He reports this is relatively stable and we are not able to do a tress echocardiogram at the weekends therefore recommend he follows up with his audio visual specialist for assessment whether he needs this but given stability and lack of chest pain he does not need ongoing admission over the weekend to have this done here. Notes For Next Care Provider Follow up cardiology for consideration of stress echocardiogram for ongoing exercise intolerance Continue to monitor potassium level - no clear reason this was elevated on outpatient labs but appears now resolved Medication Changes From Visit None Admission HPI Per Admitting Provider Ricardo is a 65yo male with hx CAD with stent placement ~15y ago, HTN, HLD, and mood disorder presenting to the ED due to PCP's concern about elevated potassium (5.6) on 07/31/25. Daughter interpreting from [facility] due to request. States he has been feeling okay most of the time in the past few weeks, but notes he's been breathing heavily with rather minimal exertion, including going up one flight of stars at home. Daughter states he sounds out of breath upon this exertion, but had no chest pain, chest tightness, dizziness, lightheadedness, palpitations, or fainting. Reports one instance about 2wks ago when he had an episode of heavy breathing and cold sweats after minimal exertion one night, resolved that night but the next day he had cough and congestion. Notes cough has been lingering and intermittent but improving. Was not tested for COVID or flu. Does note prior history of cigarette smoking and current daily vaping, though interested in cutting back. ER course: NS 500cc bolus Discharge Exam Constitutional WD/WN, vitals as above Respiratory normal respiratory effort, lungs clear to auscultation Cardiovascular RRR, no murmur, no edema Discharge Plan Discharge Items Patient Disposition: Home - Self-Care Reason For Visit: ACTIVITY INTOLERANCE Discharge Diagnosis: Hyperkalemia resolved Condition on Discharge: Good Activity: Resume your previous activity Non-emergency contact: Primary Care Provider Call non-emergency contact if: you have any medication questions and your symptoms worsen Follow-up/Referrals: Fredy Whiteside III, CRNP [Primary Care Provider] - Diet: Heart Healthy Addtl Attending Provider Instructions: You were observed at [facility] on August 01, 2025 due to elevated potassium level. This resolved spontaneously, recommend making sure any salt you put on your food does not contain potassium. There is also some concern about exercise intolerance. Serial troponin tests were stable. D-dimer was normal. Recommend following up with your audio visual specialist to consider cardiac stress testing but given stability there is no need for ongoing hospitalization at this time. Pending Studies at Discharge: No Stand-Alone Forms: My [facility], Smoking Cessation Medications and DC Order Prescriptions: Continued ezetimibe [Zetia] 10 mg tablet 10 mg PO DAILY Qty: 90 3RF escitalopram oxalate 5 mg tablet 5 mg PO DAILY Qty: 90 3RF epinephrine [EpiPen 2-Enoc] 0.3 mg/0.3 mL auto-injector 0.3 mg IM Q10M PRN (Reason: anaphylaxis) Qty: 2 0RF Rx Instructions: for 2 doses enalapril maleate 20 mg tablet 20 mg PO DAILY Qty: 90 3RF atorvastatin 80 mg tablet 80 mg PO DAILY Qty: 90 3RF pantoprazole 40 mg tablet,delayed release (DR/EC) 40 mg PO QAM 90 Days Qty: 90 3RF mecobalamin (vitamin B12) 1,000 mcg tablet,chewable 1,000 mcg PO DAILY celecoxib [Celebrex] 100 mg capsule 100 mg PO BID PRN (Reason: pain) Qty: 60 5RF aspirin 81 mg Tablet,Delayed Release (Dr/Ec) 81 mg PO DAILY metoprolol succinate [Toprol XL] 25 mg tablet extended release 24 hr 25 mg PO HS Discharge Orders: Discharge Order (Routine); Ordered 08/02/25 Ordered By: Donovan Gao Admission Data Admit Date/Time: 08/01/25 22:57 Attending Provider: Donovan Gao Admit Provider: Gopi Robb V. Primary Care Provider: Fredy Whiteside III Other Providers: Jenny Quintero Other Interventions: Discharge Summary Assessment (RN) Last Done: 08/02/25 11:24 Hospital Stay Data Consultations 08/01/25 21:40 ED Decision to Admit Stat Pending Results Patient Have Any Pending Studies at Discharge: No Discharge Instructions Given to Patient (Per Discharging Provider) You were observed at [facility] on August 01, 2025 due to elevated potassium level. This resolved spontaneously, recommend making sure any salt you put on your food does not contain potassium. There is also some concern about exercise intolerance. Serial troponin tests were stable. D-dimer was normal. Recommend following up with your audio visual specialist to consider cardiac stress testing but given stability there is no need for ongoing hospitalization at this time. Total Time Total Time Spent Total Time Spent (In Minutes): 40 Coding Level of Care Code 51825 INP/OBS DISCH >30 MIN Diagnoses Hyperkalemia E87.5 Dyspnea on exertion R06.09 Coronary artery disease involving [place] coronary artery of [place] heart without angina pectoris I25.10 Associated angina: without angina Coronary Disease-Associated Artery/Lesion type: [place] artery Che[place] vs. transplanted heart: [place] heart Hx of heart artery stent Z95.5 Primary hypertension I10 Hypertension type: primary hypertension
[2025-08-02 11:19] VITALS: BP 122/64; PULSE 60; RESP 16; O2SAT 97
--- NOTE | 2025-08-02 12:41 | XCELERA ---
[id number]
--- NOTE | 2025-08-02 12:48 | Electrocardiogram Report ---
Test Reason : Blood Pressure : */* mmHG Vent. Rate : 59 BPM Atrial Rate : 59 BPM P-R Int : 150 ms QRS Dur : 124 ms QT Int : 402 ms P-R-T Axes : 50 -43 67 degrees QTcB Int : 397 ms Sinus bradycardia Left axis deviation Non-specific intra-ventricular conduction delay Minimal voltage criteria for LVH, may be normal variant Nonspecific T wave abnormality Abnormal ECG When compared with ECG of 20-May-2023 12:04, Non-specific intra-ventricular conduction delay has replaced Incomplete right bundle branch block Confirmed by Davey Barr ([id number]) on 08/02/2025 12:48:30 PM Referred By: Fredy Whiteside Confirmed By: Davey Barr
[2025-08-02] MEDS ORDERED: METOPROLOL SUCC 25MG EXT REL TAB PO SCH (21:00)
[2025-08-03] MEDS ORDERED: ENOXAPARIN INJ 40 MG/0.4 ML SYR SQ SCH (06:00)
== END 2025-08-02 11:24 | disposition home or self-care (01) ==
LOC: EDINP 20:11 → ED 20:11 → SUATTDRO 22:57 → EDINP 08-02 01:45

== ENCOUNTER 2025-10-23 13:29 | Observation (INO) ==
[2025-10-23] MEDS: OPTIRAY 320 125ml IV ONE (13:36)
[2025-10-23 14:01] LABS: Hematocrit (blood only) 40.9 % (42.0-52.0); Hemoglobin 13.9 g/dL (14.0-18.0); Immature Granulocytes # (auto) 0.01 K/uL (0.01-0.20); Immature Granulocytes % (auto) 0.1 %; Mean Corpuscular Hemoglobin 30.2 pg (25.0-34.0); Mean Corpuscular Volume 88.7 fL (80.0-100.0); Platelet Count 294 K/uL (130-400); RDW Standard Deviation 46.4 fL (36.4-46.3); Red Blood Count 4.61 M/uL (4.70-6.10); White Blood Count 6.94 K/ul (4.8-10.8)
--- NOTE | 2025-10-23 14:09 | CT Scan Report ---
UNENHANCED CT OF THE BRAIN; CT ANGIOGRAM OF THE BRAIN; CT ANGIOGRAM OF THE NECK CLINICAL HISTORY: Neurological deficit. Stroke like symptoms. COMPARISON STUDY: Chest CT dated 05/20/2023. TECHNIQUE: Unenhanced axial CT scan of the brain is performed. Subsequently, following the IV adminis tration of 112 of [address] 320, CT angiogram of the head and neck was performed from the aortic arch t o the vertex. Images are reviewed in the axial, sagittal, and coronal planes. 3-D MIPS images are cre ated and assessed. IV contrast was administered without complication. All measurements were calculate d based on NASCET criteria. A dose lowering technique was utilized adhering to the principles of ALA RA. CT DOSE: 1125.77 mGy.cm FINDINGS: Brain parenchyma: There is age-related involutional change noting advanced confluent subcortical and periventricular microangiopathic disease. There is no hemorrhage, mass effect, or evidence of acute t erritorial ischemia by CT criteria. There is no evidence of enhancing mass lesion on the angiogram ph ase images. The ventricles, sulci, and cisterns are prominent secondary to involutional change. Castano- white matter differentiation is preserved. No extra-axial fluid collection is seen. Thoracic aorta: Visualized portions of the thoracic aorta are normal in caliber. The aortic arch demo nstrates bovine variant anatomy. Right carotid arterial system: The right common carotid artery is widely patent, as are the right int ernal and external carotid arteries. Calcified plaque is seen in the carotid bulb. Left carotid arterial system: The left common carotid artery is widely patent noting atherosclerotic plaque and irregularity. Atherosclerotic plaque in the carotid bulb causes approximately 50% focal st enosis of the proximal left internal carotid artery. Diminutive left internal and external carotid ar teries are widely patent. Vertebral arteries: Widely patent bilaterally and codominant. Subclavian arteries: Widely patent bilaterally. Intracranial vasculature: There is atherosclerotic calcification of the cavernous carotid arteries. T he internal carotid arteries are patent at the skull base, as are the anterior and middle cerebral ar teries bilaterally. The left A1 segment is atretic. The vertebrobasilar system and posterior cerebral arteries are widely patent. The vertebral arteries are codominant. There is no aneurysm, high-grade stenosis, or focal vessel cut off seen throughout the intracranial circulation. Jugular veins: Patent bilaterally. Dural sinuses: Patent. Lung apices: Emphysematous change is noted. A 7 mm nodular opacity seen at the left apex on image #11 2. Soft tissues: The visualized pharyngeal soft tissues are normal in appearance noting angiographic pha se technique. The oropharyngeal airway appears widely patent. The salivary and thyroid glands are nor mal in appearance. No cervical lymphadenopathy is seen. Skeletal structures: The skeletal structures are osteopenic. The calvarium appears intact. The cervic al spine is maintained noting multilevel spondylosis. Orbits: The bony orbits are intact. Orbital contents are normal as visualized. Dentition: There is a large periapical lucency around a remaining left maxillary molar. Sinuses and mastoids: There is mild mucosal thickening in the left maxillary antrum. There is also mi ld mucosal thickening in the right frontal sinus. The remaining paranasal sinuses are clear. The mast oid air cells are well pneumatized. Cerumen is noted in the right external auditory canal. IMPRESSION: 1. There is no hemorrhage, mass effect, or evidence of acute territorial ischemia by CT criteria. 2. Unremarkable CT angiogram of the brain. 3. There is approximately 50% focal stenosis of the proximal left internal carotid artery. 4. Otherwise unremarkable CT angiogram of the neck. 5. There is a large periapical lucency around a remaining left maxillary molar. 6. Emphysema. 7. A 7 mm nodular opacity at the left apex is unchanged from March [address] and likely represents apical scarring. Consider a precautionary 6-12 month follow-up chest CT for evaluation. 8. Additional findings as above. ACT 112: Negative or not required by law. Electronically signed by: Hiram Moore M.D. 10/23/2025 2:07 PM
[2025-10-23 14:19] LABS: Alanine Aminotransferase 20 U/L (7-52); Albumin Globulin Ratio 1.3 (0.9-2); Albumin Level 3.5 gm/dl (3.4-5.0); Alkaline Phosphatase 87 U/L (34-104); Anion Gap 8 (3-11); Bilirubin,Total 1.1 mg/dl (0.2-1.0); Blood Urea Nitrogen 21 mg/dl (6-23); Calcium 8.6 mg/dl (8.6-10.3); Carbon Dioxide 23 mmol/L (21-32); Chloride 105 mmol/L (98-107); Globulin 2.6 gm/dl (2.5-4.0); Glucose 110 mg/dl (70-99(Fasting)); Magnesium 1.8 mg/dl (1.7-2.4); Potassium 3.9 mmol/L (3.5-5.1); Sodium 136 mmol/L (136-145); Total Protein 6.1 gm/dl (6.0-8.3)
--- NOTE | 2025-10-23 14:19 | Emergency Department Note ---
History of Present Illness General Chief complaint: Stroke Alert Stated complaint: STROKE ALERT Source: patient Mode of arrival: EMS Limitations: language barrier History of Present Illness Maximum Pain Intensity: 7 Patient is a 65 y.o. M with h/o CAD, HLD, HTN who speaks only Lithuanian presents with numbness and slurred speech. Son in law at bedside for initial translation. Symptoms began around 12p. He was feeling weak while in the bathroom and was unable to stand up. When family helped him to the bed they noted he was slurring his speech and finger to nose testing was off. He also complained of numbness to the R side of his face. Symptoms resolved prior to arrival. Pt also complains of pain around his left eye but no vision change reported. No h/o migraine or prior CVA/ TIA. He does take aspirin and plavix daily. Home Medications Medication Instructions Recorded Confirmed Type aspirin 81 mg tablet,delayed 81 mg PO DAILY 05/20/23 09/03/25 History release atorvastatin 80 mg tablet 80 mg PO DAILY #90 tabs 01/09/25 09/03/25 Rx enalapril maleate 20 mg tablet 20 mg PO DAILY #90 tabs 01/09/25 09/03/25 Rx pantoprazole 40 mg tablet,delayed 40 mg PO QAM 90 days #90 tabs 01/09/25 09/03/25 Rx release ezetimibe 10 mg tablet (Zetia) 10 mg PO DAILY #90 tabs 01/13/25 09/03/25 Rx mecobalamin (vitamin B12) 1,000 1,000 mcg PO DAILY 04/22/25 09/03/25 History mcg chewable tablet epinephrine 0.3 mg/0.3 mL 0.3 mg (0.3 mL) IM Q10M PRN 08/04/25 09/03/25 Rx injection, auto-injector (EpiPen anaphylaxis #2 ea 2-Enoc) clopidogrel 75 mg tablet 75 mg PO DAILY #30 tabs 08/18/25 09/03/25 Rx metoprolol succinate 25 mg 25 mg PO HS #30 tabs 08/18/25 09/03/25 Rx tablet,extended release 24 hr (Toprol XL) escitalopram oxalate 10 mg tablet 10 mg PO DAILY #90 tabs 10/20/25 Rx Allergies Allergy/AdvReac Type Severity Reaction Status Date / Time bee venom protein (honey bee) Allergy Severe Anaphylaxis Verified 09/03/25 14:58 Past Med/Surg History Problem List (Updated 08/31/25 @ 00:08 by Background Cindi) Slurred speech (Acute) Headache (Acute) Hyperkalemia Dyspnea on exertion Fatigue (Acute) Elevated troponin (Acute) Irritable mood Vitamin B12 deficiency 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) HLD (hyperlipidemia) (Chronic) HTN (hypertension) (Chronic) CAD (coronary artery disease) (Chronic) Hx of heart artery stent (Chronic) Medical History (Updated 10/23/25 @ 14:30 by Tony Lazo MD) Epigastric pain Chest pain Abnormal ECG Unstable angina Surgical History (Updated 08/31/25 @ 00:08 by Background Cindi) History of tonsillectomy Family History Father Myocardial infarction Hypertension Other Heart disease Social History Smoking Status: Unknown if ever smoked Tobacco Type: Cigarettes and E-cigarettes / Vaping Age Started Using Tobacco: 26; packs per day: 0.5; Second Hand Exposure: No; Do You Dip or Chew Tobacco: No; Hx Alcohol Use: No Hx Substance Use: No Preferred Language: Georgian Communication Ability: Effective Communication Ability Comment: [place] Communication Tools: IPad Beer Maker Required: Yes Beliefs That Will Affect Care: None marital status: Current Living Situation: Family current occupational status: employed 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 Physical Exam Vital Signs Vital Signs - 24 hr 10/23/25 13:35 10/23/25 13:59 10/23/25 14:15 Temperature 36.6 C Temperature Source Oral Pulse Rate 69 66 Pulse Rate [Apical] 69 Respiratory Rate 17 20 Blood Pressure 170/101 H Blood Pressure [Right Arm] 158/81 H Blood Pressure Mean 124 Blood Pressure Mean [Right Arm] 106 Blood Pressure Position Sitting Blood Pressure Position [Right Arm] Sitting Pulse Oximetry 96 98 Oxygen Delivery Method Room Air Room Air Sepsis Recent Fever Within 48 Hours No Sepsis New/Unexplained Change in Mental Status No Sepsis Action Taken by Nursing No Action Required See below. Constitutional WD/WN, vitals as above Eyes PERRL, conjunctivae normal, anicteric sclerae ENMT external ear and nose normal, oropharynx normal Neck trachea midline, no thyromegaly Respiratory normal respiratory effort, lungs clear to auscultation Cardiovascular RRR, no murmur, no edema Musculoskeletal no cyanosis or clubbing, extremities motor strength 5/5 Skin no rashes, warm and dry Neurologic CN's II-XI intact bilaterally and awake; no focal motor deficit and not confused Speech / Cognition: normal speech Motor/Sensory: no sensory deficit Coordination: normal [id number] test and normal pdhm-[id number] test Course Administered Medications Discontinued Medications Ioversol (Optiray 320 125ml) 112 ml IV ONCE ONE Stop: 10/23/25 13:37 Last Admin: 10/23/25 13:36 Dose: 112 ml Documented By: MUSTAPHA Medical Decision Making Differential Diagnosis DDx includes but not limited to: CVA, TIA, atypical migraine, temporal arteritis, SAH, neoplasm, CVST Medical Records Attestation: I reviewed the patient's medical records. Home Medications Current Medication List: was personally reviewed by me Laboratory Data Attestation: I reviewed the patient's lab results. 10/23/25 13:47 10/23/25 13:47 Lab Results 10/23/25 10/23/25 Range/Units 13:47 13:51 WBC 6.94 (4.8-10.8) K/ul RBC 4.61 L (4.70-6.10) M/uL Hgb 13.9 L (14.0-18.0) g/dL POC Hgb 13.9 L (14.0-18.0) g/dl Hct 40.9 L (42.0-52.0) % POC Hct 41 L (42-52) % MCV 88.7 (80.0-100.0) fL MCH 30.2 (25.0-34.0) pg MCHC 34.0 (32.0-36.0) g/dL RDW Std Deviation 46.4 H (36.4-46.3) fL RDW Coeff of Alanna 14.3 (11.5-14.5) % Plt Count 294 (130-400) K/uL MPV 10.4 (9.4-12.4) fL Immature Gran % (Auto) 0.1 % Neut % (Auto) 52.3 % Lymph % (Auto) 30.0 % Piute % (Auto) 11.4 % Eos % (Auto) 5.0 % Baso % (Auto) 1.2 % Neut # (Auto) 3.63 (1.40-6.50) K/uL Lymph # (Auto) 2.08 (1.20-3.40) K/uL Piute # (Auto) 0.79 H (0.11-0.59) K/uL Eos # (Auto) 0.35 (0.00-0.50) K/uL Baso # (Auto) 0.08 (0.00-0.20) K/uL Immature Gran # (Auto) 0.01 (0.01-0.20) K/uL POC Sodium 138 (135-144) mmol/L Sodium 136 (136-145) mmol/L POC Potassium 4.0 (3.3-5.0) mmol/L Potassium 3.9 (3.5-5.1) mmol/L POC Chloride 104 (101-112) mmol/L Chloride 105 (98-107) mmol/L Carbon Dioxide 23 (21-32) mmol/L POC Total CO2 23 L (24-31) mmol/L Anion Gap 8 (3-11) POC Anion Gap 16.0 (16-25) mmol/L POC BUN 21 H (7-18) mg/dl BUN 21 (6-23) mg/dl Creatinine 1.04 (0.6-1.4) mg/dl POC Creatinine 1.2 (0.6-1.3) mg/dl Est Cr Clr Drug Dosing Not Reportable eGFR 80.18 BUN/Creatinine Ratio 20.2 H (10-20) Glucose 110 H (70-99(Fasting)) mg/dl POC Glucose (other) 106 H (70-99) mg/dl Calcium 8.6 (8.6-10.3) mg/dl POC Ioniz Calcium Addie 1.14 (1.12-1.32) mmol/l Magnesium 1.8 (1.7-2.4) mg/dl Total Bilirubin 1.1 H (0.2-1.0) mg/dl AST 16 (13-39) U/L ALT 20 (7-52) U/L Alkaline Phosphatase 87 (34-104) U/L Troponin I High Sens 21.3 H (0-20) pg/ml Total Protein 6.1 (6.0-8.3) gm/dl Albumin 3.5 (3.4-5.0) gm/dl Globulin 2.6 (2.5-4.0) gm/dl Albumin/Globulin Ratio 1.3 (0.9-2) Imaging Data Radiologist's Impression: Head CT 10/23/25 13:[address] OF THE BRAIN; CT ANGIOGRAM OF THE BRAIN; CT ANGIOGRAM OF THE NECK CLINICAL HISTORY: Neurological deficit. Stroke like symptoms. COMPARISON STUDY: Chest CT dated 05/20/2023. TECHNIQUE: Unenhanced axial CT scan of the brain is performed. Subsequently, following the IV administration of 112 of [address] 320, CT angiogram of the head and neck was performed from the aortic arch to the vertex. Images are reviewed in the axial, sagittal, and coronal planes. 3-D MIPS images are created and assessed. IV contrast was administered without complication. All measurements were calculated based on NASCET criteria. A dose lowering technique was utilized adhering to the principles of ALARA. CT DOSE: 1125.77 mGy.cm FINDINGS: Brain parenchyma: There is age-related involutional change noting advanced confluent subcortical and periventricular microangiopathic disease. There is no hemorrhage, mass effect, or evidence of acute territorial ischemia by CT criteria. There is no evidence of enhancing mass lesion on the angiogram phase images. The ventricles, sulci, and cisterns are prominent secondary to involutional change. Castano-white matter differentiation is preserved. No extra- axial fluid collection is seen. Thoracic aorta: Visualized portions of the thoracic aorta are normal in caliber. The aortic arch demonstrates bovine variant anatomy. Right carotid arterial system: The right common carotid artery is widely patent, as are the right internal and external carotid arteries. Calcified plaque is seen in the carotid bulb. Left carotid arterial system: The left common carotid artery is widely patent noting atherosclerotic plaque and irregularity. Atherosclerotic plaque in the carotid bulb causes approximately 50% focal stenosis of the proximal left internal carotid artery. Diminutive left internal and external carotid arteries are widely patent. Vertebral arteries: Widely patent bilaterally and codominant. Subclavian arteries: Widely patent bilaterally. Intracranial vasculature: There is atherosclerotic calcification of the cavernous carotid arteries. The internal carotid arteries are patent at the skull base, as are the anterior and middle cerebral arteries bilaterally. The left A1 segment is atretic. The vertebrobasilar system and posterior cerebral arteries are widely patent. The vertebral arteries are codominant. There is no aneurysm, high-grade stenosis, or focal vessel cut off seen throughout the intracranial circulation. Jugular veins: Patent bilaterally. Dural sinuses: Patent. Lung apices: Emphysematous change is noted. A 7 mm nodular opacity seen at the left apex on image #112. Soft tissues: The visualized pharyngeal soft tissues are normal in appearance noting angiographic phase technique. The oropharyngeal airway appears widely patent. The salivary and thyroid glands are normal in appearance. No cervical lymphadenopathy is seen. Skeletal structures: The skeletal structures are osteopenic. The calvarium appears intact. The cervical spine is maintained noting multilevel spondylosis. Orbits: The bony orbits are intact. Orbital contents are normal as visualized. Dentition: There is a large periapical lucency around a remaining left maxillary molar. Sinuses and mastoids: There is mild mucosal thickening in the left maxillary antrum. There is also mild mucosal thickening in the right frontal sinus. The remaining paranasal sinuses are clear. The mastoid air cells are well pneumatized. Cerumen is noted in the right external auditory canal. IMPRESSION: 1. There is no hemorrhage, mass effect, or evidence of acute territorial ischemia by CT criteria. 2. Unremarkable CT angiogram of the brain. 3. There is approximately 50% focal stenosis of the proximal left internal carotid artery. 4. Otherwise unremarkable CT angiogram of the neck. 5. There is a large periapical lucency around a remaining left maxillary molar. 6. Emphysema. 7. A 7 mm nodular opacity at the left apex is unchanged from March [address] and likely represents apical scarring. Consider a precautionary 6-12 month follow-up chest CT for evaluation. 8. Additional findings as above. ACT 112: Negative or not required by law. Electronically signed by: Hiram Moore M.D. 10/23/2025 2:07 PM Head CTA 10/23/25 13:[address] OF THE BRAIN; CT ANGIOGRAM OF THE BRAIN; CT ANGIOGRAM OF THE NECK CLINICAL HISTORY: Neurological deficit. Stroke like symptoms. COMPARISON STUDY: Chest CT dated 05/20/2023. TECHNIQUE: Unenhanced axial CT scan of the brain is performed. Subsequently, following the IV administration of 112 of [address] 320, CT angiogram of the head and neck was performed from the aortic arch to the vertex. Images are reviewed in the axial, sagittal, and coronal planes. 3-D MIPS images are created and assessed. IV contrast was administered without complication. All measurements were calculated based on NASCET criteria. A dose lowering technique was utilized adhering to the principles of ALARA. CT DOSE: 1125.77 mGy.cm FINDINGS: Brain parenchyma: There is age-related involutional change noting advanced confluent subcortical and periventricular microangiopathic disease. There is no hemorrhage, mass effect, or evidence of acute territorial ischemia by CT criteria. There is no evidence of enhancing mass lesion on the angiogram phase images. The ventricles, sulci, and cisterns are prominent secondary to involutional change. Castano-white matter differentiation is preserved. No extra- axial fluid collection is seen. Thoracic aorta: Visualized portions of the thoracic aorta are normal in caliber. The aortic arch demonstrates bovine variant anatomy. Right carotid arterial system: The right common carotid artery is widely patent, as are the right internal and external carotid arteries. Calcified plaque is seen in the carotid bulb. Left carotid arterial system: The left common carotid artery is widely patent noting atherosclerotic plaque and irregularity. Atherosclerotic plaque in the carotid bulb causes approximately 50% focal stenosis of the proximal left internal carotid artery. Diminutive left internal and external carotid arteries are widely patent. Vertebral arteries: Widely patent bilaterally and codominant. Subclavian arteries: Widely patent bilaterally. Intracranial vasculature: There is atherosclerotic calcification of the cavernous carotid arteries. The internal carotid arteries are patent at the skull base, as are the anterior and middle cerebral arteries bilaterally. The left A1 segment is atretic. The vertebrobasilar system and posterior cerebral arteries are widely patent. The vertebral arteries are codominant. There is no aneurysm, high-grade stenosis, or focal vessel cut off seen throughout the intracranial circulation. Jugular veins: Patent bilaterally. Dural sinuses: Patent. Lung apices: Emphysematous change is noted. A 7 mm nodular opacity seen at the left apex on image #112. Soft tissues: The visualized pharyngeal soft tissues are normal in appearance noting angiographic phase technique. The oropharyngeal airway appears widely patent. The salivary and thyroid glands are normal in appearance. No cervical lymphadenopathy is seen. Skeletal structures: The skeletal structures are osteopenic. The calvarium appears intact. The cervical spine is maintained noting multilevel spondylosis. Orbits: The bony orbits are intact. Orbital contents are normal as visualized. Dentition: There is a large periapical lucency around a remaining left maxillary molar. Sinuses and mastoids: There is mild mucosal thickening in the left maxillary antrum. There is also mild mucosal thickening in the right frontal sinus. The remaining paranasal sinuses are clear. The mastoid air cells are well pneumatized. Cerumen is noted in the right external auditory canal. IMPRESSION: 1. There is no hemorrhage, mass effect, or evidence of acute territorial ischemia by CT criteria. 2. Unremarkable CT angiogram of the brain. 3. There is approximately 50% focal stenosis of the proximal left internal carotid artery. 4. Otherwise unremarkable CT angiogram of the neck. 5. There is a large periapical lucency around a remaining left maxillary molar. 6. Emphysema. 7. A 7 mm nodular opacity at the left apex is unchanged from March [address] and likely represents apical scarring. Consider a precautionary 6-12 month follow-up chest CT for evaluation. 8. Additional findings as above. ACT 112: Negative or not required by law. Electronically signed by: Hiram Moore M.D. 10/23/2025 2:07 PM Neck CTA 10/23/25 13:[address] OF THE BRAIN; CT ANGIOGRAM OF THE BRAIN; CT ANGIOGRAM OF THE NECK CLINICAL HISTORY: Neurological deficit. Stroke like symptoms. COMPARISON STUDY: Chest CT dated 05/20/2023. TECHNIQUE: Unenhanced axial CT scan of the brain is performed. Subsequently, following the IV administration of 112 of [address] 320, CT angiogram of the head and neck was performed from the aortic arch to the vertex. Images are reviewed in the axial, sagittal, and coronal planes. 3-D MIPS images are created and assessed. IV contrast was administered without complication. All measurements were calculated based on NASCET criteria. A dose lowering technique was utilized adhering to the principles of ALARA. CT DOSE: 1125.77 mGy.cm FINDINGS: Brain parenchyma: There is age-related involutional change noting advanced confluent subcortical and periventricular microangiopathic disease. There is no hemorrhage, mass effect, or evidence of acute territorial ischemia by CT criteria. There is no evidence of enhancing mass lesion on the angiogram phase images. The ventricles, sulci, and cisterns are prominent secondary to involutional change. Castano-white matter differentiation is preserved. No extra- axial fluid collection is seen. Thoracic aorta: Visualized portions of the thoracic aorta are normal in caliber. The aortic arch demonstrates bovine variant anatomy. Right carotid arterial system: The right common carotid artery is widely patent, as are the right internal and external carotid arteries. Calcified plaque is seen in the carotid bulb. Left carotid arterial system: The left common carotid artery is widely patent noting atherosclerotic plaque and irregularity. Atherosclerotic plaque in the carotid bulb causes approximately 50% focal stenosis of the proximal left internal carotid artery. Diminutive left internal and external carotid arteries are widely patent. Vertebral arteries: Widely patent bilaterally and codominant. Subclavian arteries: Widely patent bilaterally. Intracranial vasculature: There is atherosclerotic calcification of the cavernous carotid arteries. The internal carotid arteries are patent at the skull base, as are the anterior and middle cerebral arteries bilaterally. The left A1 segment is atretic. The vertebrobasilar system and posterior cerebral arteries are widely patent. The vertebral arteries are codominant. There is no aneurysm, high-grade stenosis, or focal vessel cut off seen throughout the intracranial circulation. Jugular veins: Patent bilaterally. Dural sinuses: Patent. Lung apices: Emphysematous change is noted. A 7 mm nodular opacity seen at the left apex on image #112. Soft tissues: The visualized pharyngeal soft tissues are normal in appearance noting angiographic phase technique. The oropharyngeal airway appears widely patent. The salivary and thyroid glands are normal in appearance. No cervical lymphadenopathy is seen. Skeletal structures: The skeletal structures are osteopenic. The calvarium appears intact. The cervical spine is maintained noting multilevel spondylosis. Orbits: The bony orbits are intact. Orbital contents are normal as visualized. Dentition: There is a large periapical lucency around a remaining left maxillary molar. Sinuses and mastoids: There is mild mucosal thickening in the left maxillary antrum. There is also mild mucosal thickening in the right frontal sinus. The remaining paranasal sinuses are clear. The mastoid air cells are well pneumatized. Cerumen is noted in the right external auditory canal. IMPRESSION: 1. There is no hemorrhage, mass effect, or evidence of acute territorial ischemia by CT criteria. 2. Unremarkable CT angiogram of the brain. 3. There is approximately 50% focal stenosis of the proximal left internal carotid artery. 4. Otherwise unremarkable CT angiogram of the neck. 5. There is a large periapical lucency around a remaining left maxillary molar. 6. Emphysema. 7. A 7 mm nodular opacity at the left apex is unchanged from March [address] and likely represents apical scarring. Consider a precautionary 6-12 month follow-up chest CT for evaluation. 8. Additional findings as above. ACT 112: Negative or not required by law. Electronically signed by: Hiram Moore M.D. 10/23/2025 2:07 PM [facility] Narrative Patient is a 65-year-old male presents with slurred speech as well as numbness and headache. Slurred speech and numbness resolved prior to arrival. He was made a stroke alert on arrival due to report from EMS of waxing and waning symptoms. His NIH is [address] imaging ordered and reviewed. No evidence of intracranial hemorrhage or large vessel occlusion noted. [facility] teleneurologist evaluated patient at bedside. No indication for TNK at this time. He does recommend continuing dual antiplatelet therapy as well as Lipitor and ezetimibe. Teleneurologist also recommends admission for stroke workup including but not limited to MRI of the brain and orbits due to his ongoing headache and pain by his left eye. Patient stable for admission to medical service at this time. Impression & Plan Headache, Slurred speech Discharge Plan Visit Data Chief Complaint: Stroke Alert Stated Complaint: STROKE ALERT ED Provider: Tony Lazo Discharge Problem: Headache, Slurred speech Patient Disposition: Admitted As Inpatient Condition: Good Forms Stand Alone Forms: My [facility] Prescriptions Prescriptions: No Action ezetimibe [Zetia] 10 mg tablet 10 mg PO DAILY Qty: 90 3RF epinephrine [EpiPen 2-Enoc] 0.3 mg/0.3 mL auto-injector 0.3 mg IM Q10M PRN (Reason: anaphylaxis) Qty: 2 0RF Rx Instructions: for 2 doses metoprolol succinate [Toprol XL] 25 mg tablet extended release 24 hr 25 mg PO HS Qty: 30 6RF escitalopram oxalate 10 mg tablet 10 mg PO DAILY Qty: 90 1RF enalapril maleate 20 mg tablet 20 mg PO DAILY Qty: 90 3RF atorvastatin 80 mg tablet 80 mg PO DAILY Qty: 90 3RF pantoprazole 40 mg tablet,delayed release (DR/EC) 40 mg PO QAM 90 Days Qty: 90 3RF mecobalamin (vitamin B12) 1,000 mcg tablet,chewable 1,000 mcg PO DAILY aspirin 81 mg Tablet,Delayed Release (Dr/Ec) 81 mg PO DAILY clopidogrel 75 mg tablet 75 mg PO DAILY Qty: 30 11RF Referrals Referrals: Fredy Whiteside III, CRNP [Primary Care Provider] -
[2025-10-23] MEDS: ACETAMINOPHEN 1,000 MG/100 ML VIAL IV STA (14:25)
[2025-10-23] MEDS: ATORVASTATIN 40 MG TAB PO SCH (14:26)
[2025-10-23] MEDS: EZETIMIBE 10 MG TAB PO SCH (14:26)
[2025-10-23 14:33] LABS: INR 1.0 (0.9-1.1); Partial Thromboplastin Time 26 Seconds (21-31); Prothrombin Time 10.9 Seconds (9.0-12.0)
--- NOTE | 2025-10-23 16:03 | History & Physical Report ---
Date of Service October 23, 2025 Assessment & Plan (1) Slurred speech: Plan: right facial numbness, right hand numbness, slurred speech, confusion, acute vertigo, etc all concerning for acute CVA - or, alternatively, a TIA fortunately all symptoms already improved MRI brain ordered urgently CT head, CTA head/neck -- all reviewed CTA neck with 50% ICA stenosis on left only, otherwise neck/head circulation wnl obtain echo with bubble study place on telemetry - r/o a.fib check lipids and hemoglobin a1c cont statin and zetia hold BP meds - allow permissiveness this evening cont DAPT - aspirin/plavix formal neuro consult requested PT/OT/speech evals requested (2) Headache: Plan: no prior history of migraines doubt presentation is c/w atypical/complex migraine if stroke is present on MRI brain then the headache is from such tylenol prn headache could be from dental disease as well (3) CAD (coronary artery disease): Plan: s/p recent cardiac catheterization 08/18/[address] Andreas Whitman Findings: LM -normal caliber, long vessel with 20 to 30% mid segment stenosis. LAD -medium caliber vessel, mildly calcified, multiple sequential LAD lesions, 60% late-LAD at takeoff of large D1 followed by focal 90% stenosis at second septal. Latemid LAD stent with severe diffuse in-stent restenosis 95+%. Distal vessel with mild disease and extends around apex Circumflex -small caliber vessel, 40% ostial stenosis before bifurcating high OM1. Subtotally occluded in the midsegment. Small OM2 with MERRILL I flow RCA -large caliber vessel, dominant, 30% mid segment disease. Bifurcation PDA with 40-50% ostial stenosis. 100% chronic occlusion of right posterior AV branch right after takeoff of PDA. Right PLB's fill briskly via [id number] collaterals. S/P 2 ANA to LAD cont asa cont plavix cont statin and zetia ultimately resume meto succ echo 07/2025 - EF 50-55%, apical akinesis, no thrombus due to concern for TIA vs CVA obtain repeat echo with bubble study (4) HTN (hypertension): Plan: allow permissive HTN given that today's event may have been acute CVA hold enalapril hold meto succ (5) HLD (hyperlipidemia): Plan: check lipid profile in am check a1c as prior a1c was elevated - r/o pre-DM or full-blown DM cont high-intensity statin cont zetia (6) History of tobacco abuse: Plan: no longer smoking quit earlier in 2024 (7) Stenosis of left internal carotid artery: Plan: 50% no Rx needed for this check lipid profile in am cont statin cont zetia (8) Asymptomatic periapical periodontitis: Plan: left maxillary molar should see dentist for this post-d/c may need extraction (9) Pulmonary nodule: Plan: 7mm, KENYATTA - seen incidentally on CTA neck present since at least 2022 given prior tobacco dependence will need ongoing surveillance (10) GERD (gastroesophageal reflux disease): Plan: cont PPI Plan DVT proph - lovenox once daily starting in am tomorrow son extensively updated at bedside History of Present Illness Chief Complaint: right facial & right hand numbness Primary Care Provider: Fredy Whietside III, BOOTMAKER 65yo male with CAD s/p 2 LAD stents in 07/2025, HTN, hyperlipidemia, prior stroke while living [place], and GERD presents from home due to the acute onset of dizziness, weakness, altered mental status, slurred speech, right facial numbness, and right hand numbness starting about noon today. The patient does not speak Georgian and I offered an fitter armament to the patient & his son-in-law. Son-in-law declined an fitter armament, stating he wanted to translate for his father. Per the patient's son-in-law the patient was at his home and at about 12 o'clock, while in the bathroom, he developed dizziness that was described as a vertigo sensation. He grabbed onto the bathroom door and called out for his . His & son-in-law came to his aid and guided him back to bed. He was awake but not responding and couldn't speak sensibly. His speech was slurry. He was able to tell his family that his right side of his face & right hand felt numb. His son-in-law also mentioned that he looked pale during this event. He did not have any motor weakness and did not have any RLE symptoms. The face did not have a droop. EMS was summoned to his home and he was brought to [facility]. By the time he was in the ER he reported a mild headache above the left eye. He does not have a history of migraines. When he was trying to recall the events of today he had a difficult time doing so. Upon ER presentation at [facility] patient underwent telestroke evaluation. Given rapid improvement in symptoms lytic therapy was not advised. Patient mentioned that he had a stroke years ago while still living in the country of [place]. He was left with no disabilities from that stroke. He mentioned that his father had a stroke during his lifetime. About 2 months ago he underwent left heart catheterization and had 2 stents placed to the LAD. He has been taking DAPT (aspirin/plavix) since then. Allergies Allergy/AdvReac Type Severity Reaction Status Date / Time bee venom protein (honey bee) Allergy Severe Anaphylaxis Verified 10/23/25 16:07 Home Medications Medication Instructions Recorded Confirmed Type aspirin 81 mg tablet,delayed 81 mg PO DAILY 05/20/23 10/23/25 History release atorvastatin 80 mg tablet 80 mg PO DAILY #90 tabs 01/09/25 10/23/25 Rx enalapril maleate 20 mg tablet 20 mg PO DAILY #90 tabs 01/09/25 10/23/25 Rx pantoprazole 40 mg tablet,delayed 40 mg PO QAM 90 days #90 tabs 01/09/25 10/23/25 Rx release ezetimibe 10 mg tablet (Zetia) 10 mg PO DAILY #90 tabs 01/13/25 10/23/25 Rx mecobalamin (vitamin B12) 1,000 1,000 mcg PO DAILY 04/22/25 10/23/25 History mcg chewable tablet epinephrine 0.3 mg/0.3 mL 0.3 mg (0.3 mL) IM Q10M PRN 08/04/25 10/23/25 Rx injection, auto-injector (EpiPen anaphylaxis #2 ea 2-Enoc) clopidogrel 75 mg tablet 75 mg PO DAILY #30 tabs 08/18/25 10/23/25 Rx metoprolol succinate 25 mg 25 mg PO HS #30 tabs 08/18/25 10/23/25 Rx tablet,extended release 24 hr (Toprol XL) escitalopram oxalate 10 mg tablet 10 mg PO DAILY #90 tabs 10/20/25 10/23/25 Rx Past Med/Surg History Problem List (Updated 10/24/25 @ 03:55 by Donovan Arenas MD) Asymptomatic periapical periodontitis Stenosis of left internal carotid artery Slurred speech (Acute) Headache (Acute) Hyperkalemia Dyspnea on exertion Fatigue (Acute) Elevated troponin (Acute) Medical History (Updated 10/24/25 @ 03:55 by Donovan Arenas MD) Pulmonary nodule GERD (gastroesophageal reflux disease) Irritable mood CAD (coronary artery disease) HTN (hypertension) HLD (hyperlipidemia) 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 Vitamin B12 deficiency History of tobacco abuse Epigastric pain Chest pain Abnormal ECG Unstable angina Surgical History (Updated 10/24/25 @ 03:33 by Donovan Arenas MD) Hx of heart artery stent History of tonsillectomy Family History Father Myocardial infarction Hypertension Stroke Other Heart disease Social History (Updated 10/24/25 @ 03:36 by Donovan Arenas MD) Smoking Status: Former smoker Tobacco Type: Cigarettes Age Started Using Tobacco: 26; packs per day: 1; Smoking End Date: 04/2025; Second Hand Exposure: No; Do You Dip or Chew Tobacco: No; Hx Alcohol Use: No Hx Substance Use: No Preferred Language: Kyrgyz Communication Ability: Effective Communication Ability Comment: CYMRAES Communication Tools: IPad and Language Line Stopper Grinder Stopper Grinder Required: Yes Beliefs That Will Affect Care: None marital status: Current Living Situation: Family Current Living Situation Comment: lives in house with , daughter and son in law and grandson current occupational status: employed 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 How many Children do You have: 2 Feels Safe at Home: Yes Childhood Exposure to Second-Hand Smoke: No Diet: regular Dental Care, Regularly: No Physical Activity Frequency: Does not Exercise Seatbelt Use: always Sunscreen Use: Yes Assistive Devices: Denture - Upper, Denture - Lower and Glasses Assistive Devices Comment: dentures in place Review of Systems Review of Systems: gen - had been feeling well prior to today, no fevers/chills; eating fine eyes - no ocular complaints or vision loss; no diplopia HENT - no dysphagia, slurred speech earlier - now resolved; no URI symptoms; denies dental/jaw pain CV - no chest pain, no orthopnea, no edema pulm - no cough or dyspnea GI - no nausea/vomiting or pain - no dysuria musculo - denies myalgias or arthralgias neuro - left-sided frontal headache; see HPI re: presenting symptoms; no motor weakness skin - no rash endo - denies diabetes Physical Exam Physical Exam: gen - lying comfortably in bed, NAD, speech clear, no dysarthria or aphasia face - no droop eyes - EOMI, PERRL HENT - MMM, no lesions, dentures in place neck - no bruits, no lymph nodes, no goiter CV - RRR, s1 s2, no murmur lungs - CTA b/l abd - soft NT ND BS+, no HSM ext - no edema, pulses 2+ b/l feet neuro - CN 3-12 intact, finger/nose/finger maneuver without ataxia, motor strength 5/5 x 4 exts; DTRs brisk LUE, LLE; DTRs RUE, RLE 2+; sensation intact to light touch x 4 exts including face skin - no rash psych - a/o x 3 Results & Data Results & Data Vital Signs (Past 12 Hours) Vital Signs Temp Pulse Pulse Resp BP BP Pulse Ox 10/23/25 15:23 64 15 145/77 H 95 10/23/25 14:52 68 16 165/89 H 95 10/23/25 14:30 61 18 162/94 H 95 10/23/25 14:15 69 20 158/81 H 98 10/23/25 13:59 66 10/23/25 13:35 36.6 C 69 17 170/101 H 96 O2 Del Method 10/23/25 15:23 Room Air 10/23/25 14:52 Room Air 10/23/25 14:30 Room Air 10/23/25 14:15 Room Air 10/23/25 13:59 10/23/25 13:35 Room Air Laboratory Results Laboratory Results - last 24 hr 10/23/25 10/23/25 10/23/25 13:47 13:51 16:35 WBC 6.94 RBC 4.61 L Hgb 13.9 L POC Hgb 13.9 L Hct 40.9 L POC Hct 41 L MCV 88.7 MCH 30.2 MCHC 34.0 RDW Std Deviation 46.4 H RDW Coeff of Alanna 14.3 Plt Count 294 MPV 10.4 Immature Gran % (Auto) 0.1 Neut % (Auto) 52.3 Lymph % (Auto) 30.0 [place] % (Auto) 11.4 Eos % (Auto) 5.0 Baso % (Auto) 1.2 Neut # (Auto) 3.63 Lymph # (Auto) 2.08 [place] # (Auto) 0.79 H Eos # (Auto) 0.35 Baso # (Auto) 0.08 Immature Gran # (Auto) 0.01 PT 10.9 INR 1.0 APTT 26 PTT Ratio 1.0 POC Sodium 138 Sodium 136 POC Potassium 4.0 Potassium 3.9 POC Chloride 104 Chloride 105 Carbon Dioxide 23 POC Total CO2 23 L Anion Gap 8 POC Anion Gap 16.0 POC BUN 21 H BUN 21 Creatinine 1.04 POC Creatinine 1.2 Est Cr Clr Drug Dosing Not Reportable eGFR 80.18 BUN/Creatinine Ratio 20.2 H Glucose 110 H POC Glucose (other) 106 H Calcium 8.6 POC Ioniz Calcium Addie 1.14 Magnesium 1.8 Total Bilirubin 1.1 H AST 16 ALT 20 Alkaline Phosphatase 87 Troponin I High Sens 21.3 H 25.9 H Total Protein 6.1 Albumin 3.5 Globulin 2.6 Albumin/Globulin Ratio 1.3 Blood Type A Positive Antibody Screen NEGATIVE Diagnostic Findings Head CT 10/23/25 13:[address] OF THE BRAIN; CT ANGIOGRAM OF THE BRAIN; CT ANGIOGRAM OF THE NECK CLINICAL HISTORY: Neurological deficit. Stroke like symptoms. COMPARISON STUDY: Chest CT dated 05/20/2023. TECHNIQUE: Unenhanced axial CT scan of the brain is performed. Subsequently, following the IV administration of 112 of [address] 320, CT angiogram of the head and neck was performed from the aortic arch to the vertex. Images are reviewed in the axial, sagittal, and coronal planes. 3-D MIPS images are created and assessed. IV contrast was administered without complication. All measurements were calculated based on NASCET criteria. A dose lowering technique was utilized adhering to the principles of ALARA. CT DOSE: 1125.77 mGy.cm FINDINGS: Brain parenchyma: There is age-related involutional change noting advanced confluent subcortical and periventricular microangiopathic disease. There is no hemorrhage, mass effect, or evidence of acute territorial ischemia by CT criteria. There is no evidence of enhancing mass lesion on the angiogram phase images. The ventricles, sulci, and cisterns are prominent secondary to involutional change. Castano-white matter differentiation is preserved. No extra- axial fluid collection is seen. Thoracic aorta: Visualized portions of the thoracic aorta are normal in caliber. The aortic arch demonstrates bovine variant anatomy. Right carotid arterial system: The right common carotid artery is widely patent, as are the right internal and external carotid arteries. Calcified plaque is seen in the carotid bulb. Left carotid arterial system: The left common carotid artery is widely patent noting atherosclerotic plaque and irregularity. Atherosclerotic plaque in the carotid bulb causes approximately 50% focal stenosis of the proximal left internal carotid artery. Diminutive left internal and external carotid arteries are widely patent. Vertebral arteries: Widely patent bilaterally and codominant. Subclavian arteries: Widely patent bilaterally. Intracranial vasculature: There is atherosclerotic calcification of the cavernous carotid arteries. The internal carotid arteries are patent at the skull base, as are the anterior and middle cerebral arteries bilaterally. The left A1 segment is atretic. The vertebrobasilar system and posterior cerebral arteries are widely patent. The vertebral arteries are codominant. There is no aneurysm, high-grade stenosis, or focal vessel cut off seen throughout the intracranial circulation. Jugular veins: Patent bilaterally. Dural sinuses: Patent. Lung apices: Emphysematous change is noted. A 7 mm nodular opacity seen at the left apex on image #112. Soft tissues: The visualized pharyngeal soft tissues are normal in appearance noting angiographic phase technique. The oropharyngeal airway appears widely patent. The salivary and thyroid glands are normal in appearance. No cervical lymphadenopathy is seen. Skeletal structures: The skeletal structures are osteopenic. The calvarium appears intact. The cervical spine is maintained noting multilevel spondylosis. Orbits: The bony orbits are intact. Orbital contents are normal as visualized. Dentition: There is a large periapical lucency around a remaining left maxillary molar. Sinuses and mastoids: There is mild mucosal thickening in the left maxillary antrum. There is also mild mucosal thickening in the right frontal sinus. The remaining paranasal sinuses are clear. The mastoid air cells are well pneumatized. Cerumen is noted in the right external auditory canal. IMPRESSION: 1. There is no hemorrhage, mass effect, or evidence of acute territorial ischemia by CT criteria. 2. Unremarkable CT angiogram of the brain. 3. There is approximately 50% focal stenosis of the proximal left internal carotid artery. 4. Otherwise unremarkable CT angiogram of the neck. 5. There is a large periapical lucency around a remaining left maxillary molar. 6. Emphysema. 7. A 7 mm nodular opacity at the left apex is unchanged from March [address] and likely represents apical scarring. Consider a precautionary 6-12 month follow-up chest CT for evaluation. 8. Additional findings as above. ACT 112: Negative or not required by law. Electronically signed by: Hiram Moore M.D. 10/23/2025 2:07 PM Head CTA 10/23/25 13:[address] OF THE BRAIN; CT ANGIOGRAM OF THE BRAIN; CT ANGIOGRAM OF THE NECK CLINICAL HISTORY: Neurological deficit. Stroke like symptoms. COMPARISON STUDY: Chest CT dated 05/20/2023. TECHNIQUE: Unenhanced axial CT scan of the brain is performed. Subsequently, following the IV administration of 112 of [address] 320, CT angiogram of the head and neck was performed from the aortic arch to the vertex. Images are reviewed in the axial, sagittal, and coronal planes. 3-D MIPS images are created and assessed. IV contrast was administered without complication. All measurements were calculated based on NASCET criteria. A dose lowering technique was utilized adhering to the principles of ALARA. CT DOSE: 1125.77 mGy.cm FINDINGS: Brain parenchyma: There is age-related involutional change noting advanced conf luent subcortical and periventricular microangiopathic disease. There is no hemorrhage, mass effect, or evidence of acute territorial ischemia by CT criteria. There is no evidence of enhancing mass lesion on the angiogram phase images. The ventricles, sulci, and cisterns are prominent secondary to involutional change. Castano-white matter differentiation is preserved. No extra- axial fluid collection is seen. Thoracic aorta: Visualized portions of the thoracic aorta are normal in caliber. The aortic arch demonstrates bovine variant anatomy. Right carotid arterial system: The right common carotid artery is widely patent, as are the right internal and external carotid arteries. Calcified plaque is seen in the carotid bulb. Left carotid arterial system: The left common carotid artery is widely patent noting atherosclerotic plaque and irregularity. Atherosclerotic plaque in the carotid bulb causes approximately 50% focal stenosis of the proximal left internal carotid artery. Diminutive left internal and external carotid arteries are widely patent. Vertebral arteries: Widely patent bilaterally and codominant. Subclavian arteries: Widely patent bilaterally. Intracranial vasculature: There is atherosclerotic calcification of the cavernous carotid arteries. The internal carotid arteries are patent at the skull base, as are the anterior and middle cerebral arteries bilaterally. The left A1 segment is atretic. The vertebrobasilar system and posterior cerebral arteries are widely patent. The vertebral arteries are codominant. There is no aneurysm, high-grade stenosis, or focal vessel cut off seen throughout the intracranial circulation. Jugular veins: Patent bilaterally. Dural sinuses: Patent. Lung apices: Emphysematous change is noted. A 7 mm nodular opacity seen at the left apex on image #112. Soft tissues: The visualized pharyngeal soft tissues are normal in appearance noting angiographic phase technique. The oropharyngeal airway appears widely patent. The salivary and thyroid glands are normal in appearance. No cervical lymphadenopathy is seen. Skeletal structures: The skeletal structures are osteopenic. The calvarium appears intact. The cervical spine is maintained noting multilevel spondylosis. Orbits: The bony orbits are intact. Orbital contents are normal as visualized. Dentition: There is a large periapical lucency around a remaining left maxillary molar. Sinuses and mastoids: There is mild mucosal thickening in the left maxillary antrum. There is also mild mucosal thickening in the right frontal sinus. The remaining paranasal sinuses are clear. The mastoid air cells are well pneumatized. Cerumen is noted in the right external auditory canal. IMPRESSION: 1. There is no hemorrhage, mass effect, or evidence of acute territorial ischemia by CT criteria. 2. Unremarkable CT angiogram of the brain. 3. There is approximately 50% focal stenosis of the proximal left internal carotid artery. 4. Otherwise unremarkable CT angiogram of the neck. 5. There is a large periapical lucency around a remaining left maxillary molar. 6. Emphysema. 7. A 7 mm nodular opacity at the left apex is unchanged from March [address] and likely represents apical scarring. Consider a precautionary 6-12 month follow-up chest CT for evaluation. 8. Additional findings as above. ACT 112: Negative or not required by law. Electronically signed by: Hiram Moore M.D. 10/23/2025 2:07 PM Neck CTA 10/23/25 13:[address] OF THE BRAIN; CT ANGIOGRAM OF THE BRAIN; CT ANGIOGRAM OF THE NECK CLINICAL HISTORY: Neurological deficit. Stroke like symptoms. COMPARISON STUDY: Chest CT dated 05/20/2023. TECHNIQUE: Unenhanced axial CT scan of the brain is performed. Subsequently, following the IV administration of 112 of [address] 320, CT angiogram of the head and neck was performed from the aortic arch to the vertex. Images are reviewed in the axial, sagittal, and coronal planes. 3-D MIPS images are created and assessed. IV contrast was administered without complication. All measurements were calculated based on NASCET criteria. A dose lowering technique was utilized adhering to the principles of ALARA. CT DOSE: 1125.77 mGy.cm FINDINGS: Brain parenchyma: There is age-related involutional change noting advanced confluent subcortical and periventricular microangiopathic disease. There is no hemorrhage, mass effect, or evidence of acute territorial ischemia by CT criteria. There is no evidence of enhancing mass lesion on the angiogram phase images. The ventricles, sulci, and cisterns are prominent secondary to involutional change. Castano-white matter differentiation is preserved. No extra- axial fluid collection is seen. Thoracic aorta: Visualized portions of the thoracic aorta are normal in caliber. The aortic arch demonstrates bovine variant anatomy. Right carotid arterial system: The right common carotid artery is widely patent, as are the right internal and external carotid arteries. Calcified plaque is seen in the carotid bulb. Left carotid arterial system: The left common carotid artery is widely patent noting atherosclerotic plaque and irregularity. Atherosclerotic plaque in the carotid bulb causes approximately 50% focal stenosis of the proximal left internal carotid artery. Diminutive left internal and external carotid arteries are widely patent. Vertebral arteries: Widely patent bilaterally and codominant. Subclavian arteries: Widely patent bilaterally. Intracranial vasculature: There is atherosclerotic calcification of the cavernous carotid arteries. The internal carotid arteries are patent at the skull base, as are the anterior and middle cerebral arteries bilaterally. The left A1 segment is atretic. The vertebrobasilar system and posterior cerebral arteries are widely patent. The vertebral arteries are codominant. There is no aneurysm, high-grade stenosis, or focal vessel cut off seen throughout the intracranial circulation. Jugular veins: Patent bilaterally. Dural sinuses: Patent. Lung apices: Emphysematous change is noted. A 7 mm nodular opacity seen at the left apex on image #112. Soft tissues: The visualized pharyngeal soft tissues are normal in appearance noting angiographic phase technique. The oropharyngeal airway appears widely patent. The salivary and thyroid glands are normal in appearance. No cervical lymphadenopathy is seen. Skeletal structures: The skeletal structures are osteopenic. The calvarium appears intact. The cervical spine is maintained noting multilevel spondylosis. Orbits: The bony orbits are intact. Orbital contents are normal as visualized. Dentition: There is a large periapical lucency around a remaining left maxillary molar. Sinuses and mastoids: There is mild mucosal thickening in the left maxillary antrum. There is also mild mucosal thickening in the right frontal sinus. The remaining paranasal sinuses are clear. The mastoid air cells are well pneumatized. Cerumen is noted in the right external auditory canal. IMPRESSION: 1. There is no hemorrhage, mass effect, or evidence of acute territorial ischemia by CT criteria. 2. Unremarkable CT angiogram of the brain. 3. There is approximately 50% focal stenosis of the proximal left internal carotid artery. 4. Otherwise unremarkable CT angiogram of the neck. 5. There is a large periapical lucency around a remaining left maxillary molar. 6. Emphysema. 7. A 7 mm nodular opacity at the left apex is unchanged from March [address] and likely represents apical scarring. Consider a precautionary 6-12 month follow-up chest CT for evaluation. 8. Additional findings as above. ACT 112: Negative or not required by law. Electronically signed by: Hiram Moore M.D. 10/23/2025 2:07 PM ECG Additional Comments: EKG - my reading - NSR, RBBB, NS ST changes inferior leads and anterolateral leads Code Status & VTE Plan Code Status full code VTE Prophylaxis Plan VTE Prophylaxis will be ordered: Yes PG Care Time/CCT Total # of Minutes Spent Total Time Spent with Patient: Total time spent is greater than 50% in coordination of care (as documented) at patient's floor/unit and/or counseling patient: Coding Level of Care Code 80743 INT INP/OBS CARE 3/75MIN Diagnoses Slurred speech R47.81 Headache R51.9 Coronary artery disease involving council coronary artery of council heart without angina pectoris I25.10 Associated angina: without angina Coronary Disease-Associated Artery/Lesion type: council artery [place] vs. transplanted heart: council heart Primary hypertension I10 Hypertension type: primary hypertension Mixed hyperlipidemia E78.2 Hyperlipidemia type: mixed hyperlipidemia History of tobacco abuse Z87.891 Stenosis of left internal carotid artery I65.22 Asymptomatic periapical periodontitis K04.5 Pulmonary nodule R91.1 GERD (gastroesophageal reflux disease) K21.9 (3) CAD (coronary artery disease) Associated angina: without angina Coronary Disease-Associated Artery/Lesion type: council artery [place] vs. transplanted heart: council heart Qualified Code(s): I25.10 - Atherosclerotic heart disease of council coronary artery without angina pectoris (4) HTN (hypertension) Hypertension type: primary hypertension Qualified Code(s): I10 - Essential (primary) hypertension (5) HLD (hyperlipidemia) Hyperlipidemia type: mixed hyperlipidemia Qualified Code(s): E78.2 - Mixed hyperlipidemia
--- NOTE | 2025-10-23 17:55 | Magnetic Resonance Report ---
Clinical History: Possible stroke Technique: Multiple T1 and T2-weighted magnetic resonance images were obtained of the brain without gadolinium contrast No prior examination is available for comparison Findings: There is a suspected small acute infarct of the junction of the left occipital and left temporal lobes, with an approximately 9 mm area of restricted diffusion. There is also a small linear acute infarct of the left cerebellar hemisphere. There is a small old infarct of the right cerebellar hemisphere. There is cerebral atrophy, within expected limits for the patient's age. There are focal and confluent areas of increased T2 signal intensity within the periventricular white matter of the cerebral hemispheres bilaterally. This is most likely due to chronic small vessel ischemic disease. No definite mass lesion is seen on this noncontrast study. There is no intracranial hemorrhage or other fluid collection. No midline shift or other form of herniation is seen. There is no hydrocephalus. Normal flow-voids are seen within the arteries of the [id number]. The orbits and paranasal sinuses appear normal. The mastoid air cells appear clear. Impression: 1. Small acute infarct at the junction of the left occipital and left temporal lobes 2. Small acute infarct of the left cerebellar hemisphere 3. Cerebral atrophy and extensive chronic small vessel ischemic disease 4. Old right cerebellar infarct ACT 112: Positive. There are findings on this exam that require communication between the performing entity and the patient following Patient Test Result Information Act ([place] ACT 112) guidelines. Electronically signed by Calvin Woodruff 10-23-2025 5:54 PM
[2025-10-23] MEDS ORDERED: MELATONIN 3 MG TAB PO PRN (18:20)
[2025-10-23] MEDS ORDERED: PHARMACIST DISCHARGE MED REC CONSULT PRN (18:20)
[2025-10-23] MEDS ORDERED: NITROGLYCERIN SL 0.4 MG/TAB TAB SL PRN (18:20)
[2025-10-23] MEDS ORDERED: ONDANSETRON INJ 2 MG/ML 2 ML VIAL IV PRN (18:20)
[2025-10-23] MEDS: ASPIRIN 81 MG ECTAB PO STA (19:54)
[2025-10-24 06:14] LABS: Hematocrit (blood only) 42.7 % (42.0-52.0); Hemoglobin 14.2 g/dL (14.0-18.0); Immature Granulocytes # (auto) 0.01 K/uL (0.01-0.20); Immature Granulocytes % (auto) 0.1 %; Mean Corpuscular Hemoglobin 29.8 pg (25.0-34.0); Mean Corpuscular Volume 89.5 fL (80.0-100.0); Platelet Count 298 K/uL (130-400); RDW Standard Deviation 46.1 fL (36.4-46.3); Red Blood Count 4.77 M/uL (4.70-6.10); White Blood Count 7.63 K/ul (4.8-10.8)
[2025-10-24 06:43] LABS: Anion Gap 8.0 (3-11); Blood Urea Nitrogen 27.0 mg/dl (6-23); Calcium 9.2 mg/dl (8.6-10.3); Carbon Dioxide 26.0 mmol/L (21-32); Chloride 105.0 mmol/L (98-107); Cholesterol 190.0 mg/dl (0-200); Creatinine Clr Calc Pharmacy 70.8 ml/min; Glucose 112.0 mg/dl (70-99(Fasting)); HDL Cholesterol 47.0 mg/dl; Potassium 3.7 mmol/L (3.5-5.1); Sodium 139.0 mmol/L (136-145); Triglycerides 154.0 mg/dl (0-150)
[2025-10-24 07:48] LABS: Hemoglobin A1C 6.0 % (4.5-5.6)
[2025-10-24] MEDS: CYANOCOBALAMIN (B-12) 500 MCG TABLET PO SCH (08:15)
[2025-10-24] MEDS: ENOXAPARIN INJ 40 MG/0.4 ML SYR SQ SCH (08:15)
[2025-10-24] MEDS: EZETIMIBE 10 MG TAB PO SCH (08:16)
[2025-10-24] MEDS: ESCITALOPRAM OXALATE 10 MG TAB PO SCH (08:16)
[2025-10-24] MEDS: CLOPIDOGREL BISULFATE 75 MG TAB PO SCH (08:16)
[2025-10-24] MEDS: ATORVASTATIN 40 MG TAB PO SCH (08:16)
[2025-10-24] MEDS: ASPIRIN 81 MG ECTAB PO SCH (08:16)
--- NOTE | 2025-10-24 09:10 | Neurology Consultation ---
Date of Consultation October 24, 2025 Assessment & Plan (1) Acute CVA (cerebrovascular accident): Plan 65-year-old male presented with strokelike symptoms. MRI of the brain is positive for acute infarctions. Head CT did not show any acute intracranial pathology. MRI of the brain is positive for small acute infarct at the junction of the left occipital and left temporal lobes. Small acute infarct of the left cerebellar hemisphere. Cerebral atrophy and chronic small vessel disease. Old right cerebellar infarction. Patient was on dual antiplatelet therapy and also has infarctions in multiple vascular distributions so consider cardiology input regarding the need for further monitoring with Holter or SHEKHAR. CT angiogram of the head and neck did not show any hemodynamically significant stenosis. There is approximately 50% focal stenosis of the proximal left internal carotid artery. There is a large periapical lucency around the remaining left maxillary molar. Emphysema. A 7 mm nodular opacity at the left apex which is unchanged from March 2023 EKG showed normal sinus rhythm with right bundle branch block. 2D echocardiogram 08/02/2025 showed left ventricular ejection fraction 50 to 55%. No significant valvular pathology. There is no thrombus. There is apical ak inesis. Hemoglobin A1c is elevated at 6.0. Consider strict control of blood glucose Monitor blood pressure Lipid panel showed triglycerides 154 and VLDL 31. Continue high intensity statin for secondary stroke prevention . . Neurochecks every 4 hours. Continue aspirin, Plavix and high intensity statin for secondary stroke prevention Telemetry to evaluate for arrhythmia. Consult PT/OT/Speech Therapy for evaluation Continue home medications. Continue medical management per primary team. DVT Prophylaxis Case management input regarding discharge planning Plan discussed in detail with the patient, son-in-law at bedside to help with interpretation, and also [place] texted to the primary attending Donovan Arenas MD Time Spent (min) 60 minutes Comment Total time includes patient contact, chart review, counseling, note preparation *Disclaimer: This note was generated using [employer] dictation software. Any typographical errors are unintentional and attributed to errors in voice recog nition. If there are any areas of the note that do not make sense, please contact me for clarification. Telehealth Consultation Telehealth Information Telehealth Information: I performed this visit using a real-time telehealth connection between my location and the patients originating location ([facility]). After connecting through interactive tele-video, patient was identified by name and date of and/or wristband check.Patient (or authorized healthcare pharmaceutical sales representative) was informed that this was a telemedicine visit and it was being conducted confidentially over secure lines. My office door was closed and no one else was present in the room with me.Patient (or authorized healthcare pharmaceutical sales representative) provided consent to proceed with the visit, expressed an understanding of privacy and security of the telemedicine visit, and gave permission to have a hospital pharmaceutical sales representative in the room in order to assist with the visit and to conduct portions of the visit, as needed. I informed the patient (or authorized healthcare pharmaceutical sales representative) that I reviewed their record and presented the opportunity for them to ask any questions regarding the visit today. The patient agreed to participate. History of Present Illness Reason for Consultation: Acute CVA Requesting Physician: Donovan Arenas MD Attending Physician: Donovan Arenas MD History of Present Illness 65-year-old male with medical history significant for prior stroke with no residual deficits, coronary artery disease s/p 2 LAD stents in July 2025, hypertension, hyperlipidemia, GERD, presented to the emergency room on 10/23/2025 because of strokelike symptoms. The patient reported acute onset of dizziness associated with weakness, altered mental status, right hand and face numbness and slurred speech which started around noon 10/23/2025. The patient was brought to the emergency room by his son-in-law who help with the interpretation at that time. The symptoms started when patient was in the restroom. He grabbed the bathroom door and called out for his . At that time the family noted that he could not speak. He has slurred speech but was able to communicate that he feels numb on the right side of his face and also on the right hand. There is no documentation of a facial CL droop. EMS were called and he was brought to [facility] for higher level of care. The symptoms improved while he was in the emergency room. The patient then underwent telestroke evaluation and since the symptoms were almost resolved he was deemed not a candidate for thrombolytic therapy. Patient father had a stroke. The patient had cardiac catheterization with 2 stents placed in LAD in July 2025 and since then he is on dual antiplatelet therapy with aspirin and Plavix. In the emergency room, head CT was done which was negative for acut e intracranial pathology. CT angiogram of the head and neck did not show hemodynamically significant stenosis. EKG showed normal sinus rhythm with right bundle branch block. MRI of the brain showed small acute infarct at the junction of the left occipital and left temporal lobes. Small acute infarct of the left cerebellar hemisphere. Cerebral atrophy and chronic small vessel disease. Old right cerebellar infarction. He was admitted for further evaluation and management. The symptoms are completely resolved at the time of the rounds and his NIH stroke scale is 0 History obtained from review of the medical records and also by talking to the son-in-law at bedside since patient is a [place] and does not speak Montenegrin Allergies Allergy/AdvReac Type Severity Reaction Status Date / Time bee venom protein (honey bee) Allergy Severe Anaphylaxis Verified 10/23/25 16:07 Home Medications Medication Instructions Recorded Confirmed Type aspirin 81 mg tablet,delayed 81 mg PO DAILY 05/20/23 10/23/25 History release atorvastatin 80 mg tablet 80 mg PO DAILY #90 tabs 01/09/25 10/23/25 Rx enalapril maleate 20 mg tablet 20 mg PO DAILY #90 tabs 01/09/25 10/23/25 Rx pantoprazole 40 mg tablet,delayed 40 mg PO QAM 90 days #90 tabs 01/09/25 Rx release ezetimibe 10 mg tablet (Zetia) 10 mg PO DAILY #90 tabs 01/13/25 10/23/25 Rx mecobalamin (vitamin B12) 1,000 1,000 mcg PO DAILY 04/22/25 10/23/25 History mcg chewable tablet epinephrine 0.3 mg/0.3 mL 0.3 mg (0.3 mL) IM Q10M PRN 08/04/25 10/23/25 Rx injection, auto-injector (EpiPen anaphylaxis #2 ea 2-Enoc) clopidogrel 75 mg tablet 75 mg PO DAILY #30 tabs 08/18/25 10/23/25 Rx metoprolol succinate 25 mg 25 mg PO HS #30 tabs 08/18/25 10/23/25 Rx tablet,extended release 24 hr (Toprol XL) escitalopram oxalate 10 mg tablet 10 mg PO DAILY #90 tabs 10/20/25 10/23/25 Rx Patient History Medical History Pulmonary nodule GERD (gastroesophageal reflux disease) Irritable mood CAD (coronary artery disease) HTN (hypertension) HLD (hyperlipidemia) 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 Vitamin B12 deficiency History of tobacco abuse Epigastric pain Chest pain Abnormal ECG Unstable angina Surgical History Hx of heart artery stent History of tonsillectomy Family History Father Myocardial infarction Hypertension Stroke Other Heart disease Social History Smoking Status: Former smoker Tobacco Type: Cigarettes Age Started Using Tobacco: 26; packs per day: 1; Second Hand Exposure: No; Do You Dip or Chew Tobacco: No; Hx Alcohol Use: No Hx Substance Use: No Preferred Language: Moroccan Communication Ability: Effective Communication Ability Comment: [place] Communication Tools: IPad and Language Line Network Control Supervisor Network Control Supervisor Required: Yes Beliefs That Will Affect Care: None marital status: Current Living Situation: Family Current Living Situation Comment: lives in house with , daughter and son in law and grandson current occupational status: employed 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 0 Visual field testing: Normal = 0 Facial paresis: Normal symmetric movement = 0. Motor function left arm: Normal = . 0 Motor function right arm: Normal = 0 Motor function left leg: Normal = 0 Motor function right leg: Normal = 0 Limb ataxia: Present in two limbs = 0 Best language: Normal = . 0 Dysarthria: Normal = 0 Extinction and inattention: Normal = . 0 Total score 0 Neuro Exam Mentation and Language Alert and oriented to person, place, time and situation. There is no apparent deficit of comprehensionfluent speech without word-finding difficulty or dysarthria. The affect appears appropriate. Cranial Nerves CN 11-X11 intact. Pupils equally round and reactive to light. Extraocular movements intact without nystagmus. Visual colby intact to confrontation. Face symmetrical at rest and with activation with full sensation to light touch and pinprick in V1, V2 and V3 distributions. The tongue protrudes in the midline. The palate elevates symmetrically. There is no tremor or other movements of the face. Motor There is appropriate bulk throughout. Tone is normal. There is no resting tremor or other extraneous movements. Strength is graded 5/5 throughout the upper and lower extremities bilaterally. Sensation Intact to light touch bilaterally Coordination There is no dysmetria with finger nose finger Gait and Station Deferred due to patient safety reasons. Results & Data Vital Signs (Past 12 Hours) Vital Signs Temp Pulse Pulse Resp BP Pulse Ox O2 Del Method 10/24/25 07:22 37.0 C 83 22 139/79 95 Room Air 10/24/25 07:00 66 10/24/25 04:03 36.8 C 68 18 134/75 93 Room Air 10/23/25 22:51 37.1 C 81 18 136/84 95 Room Air 10/23/25 21:55 70 Laboratory Results Laboratory Results - last 24 hr 10/23/25 10/23/25 10/23/25 13:47 13:51 16:35 WBC 6.94 RBC 4.61 L Hgb 13.9 L POC Hgb 13.9 L Hct 40.9 L POC Hct 41 L MCV 88.7 MCH 30.2 MCHC 34.0 RDW Std Deviation 46.4 H RDW Coeff of Alanna 14.3 Plt Count 294 MPV 10.4 Immature Gran % (Auto) 0.1 Neut % (Auto) 52.3 Lymph % (Auto) 30.0 [place] % (Auto) 11.4 Eos % (Auto) 5.0 Baso % (Auto) 1.2 Neut # (Auto) 3.63 Lymph # (Auto) 2.08 [place] # (Auto) 0.79 H Eos # (Auto) 0.35 Baso # (Auto) 0.08 Immature Gran # (Auto) 0.01 PT 10.9 INR 1.0 APTT 26 PTT Ratio 1.0 POC Sodium 138 Sodium 136 POC Potassium 4.0 Potassium 3.9 POC Chloride 104 Chloride 105 Carbon Dioxide 23 POC Total CO2 23 L Anion Gap 8 POC Anion Gap 16.0 POC BUN 21 H BUN 21 Creatinine 1.04 POC Creatinine 1.2 Est Cr Clr Drug Dosing Not Reportable eGFR 80.18 BUN/Creatinine Ratio 20.2 H Glucose 110 H POC Glucose (other) 106 H Estimat Average Glucose Hemoglobin A1c Calcium 8.6 POC Ioniz Calcium Addie 1.14 Magnesium 1.8 Total Bilirubin 1.1 H AST 16 ALT 20 Alkaline Phosphatase 87 Troponin I High Sens 21.3 H 25.9 H Total Protein 6.1 Albumin 3.5 Globulin 2.6 Albumin/Globulin Ratio 1.3 Triglycerides Cholesterol LDL Cholesterol, Calc VLDL Cholesterol, Calc HDL Cholesterol Cholesterol/HDL Ratio Blood Type A Positive Antibody Screen NEGATIVE 10/24/25 05:35 WBC 7.63 RBC 4.77 Hgb 14.2 POC Hgb Hct 42.7 POC Hct MCV 89.5 MCH 29.8 MCHC 33.3 RDW Std Deviation 46.1 RDW Coeff of Alanna 14.1 Plt Count 298 MPV 10.4 Immature Gran % (Auto) 0.1 Neut % (Auto) 56.5 Lymph % (Auto) 24.2 [place] % (Auto) 12.3 Eos % (Auto) 6.0 Baso % (Auto) 0.9 Neut # (Auto) 4.30 Lymph # (Auto) 1.85 [place] # (Auto) 0.94 H Eos # (Auto) 0.46 Baso # (Auto) 0.07 Immature Gran # (Auto) 0.01 PT INR APTT PTT Ratio POC Sodium Sodium 139 POC Potassium Potassium 3.7 POC Chloride Chloride 105 Carbon Dioxide 26 POC Total CO2 Anion Gap 8 POC Anion Gap POC BUN BUN 27 H Creatinine 1.02 POC Creatinine Est Cr Clr Drug Dosing 70.8 eGFR 82.07 BUN/Creatinine Ratio 26.5 H Glucose 112 H POC Glucose (other) Estimat Average Glucose 126 Hemoglobin A1c 6.0 H Calcium 9.2 POC Ioniz Calcium Addie Magnesium Total Bilirubin AST ALT Alkaline Phosphatase Troponin I High Sens 31.9 H Total Protein Albumin Globulin Albumin/Globulin Ratio Triglycerides 154 H Cholesterol 190 LDL Cholesterol, Calc 112 VLDL Cholesterol, Calc 31 H HDL Cholesterol 47 Cholesterol/HDL Ratio 4.0 Blood Type Antibody Screen Diagnostic Findings Head CT 10/23/25 13:[address] OF THE BRAIN; CT ANGIOGRAM OF THE BRAIN; CT ANGIOGRAM OF THE NECK CLINICAL HISTORY: Neurological deficit. Stroke like symptoms. COMPARISON STUDY: Chest CT dated 05/20/2023. TECHNIQUE: Unenhanced axial CT scan of the brain is performed. Subsequently, following the IV administration of 112 of [address] 320, CT angiogram of the head and neck was performed from the aortic arch to the vertex. Images are reviewed in the axial, sagittal, and coronal planes. 3-D MIPS images are created and assessed. IV contrast was administered without complication. All measurements were calculated based on NASCET criteria. A dose lowering technique was utilized adhering to the principles of ALARA. CT DOSE: 1125.77 mGy.cm FINDINGS: Brain parenchyma: There is age-related involutional change noting advanced confluent subcortical and periventricular microangiopathic disease. There is no hemorrhage, mass effect, or evidence of acute territorial ischemia by CT criteria. There is no evidence of enhancing mass lesion on the angiogram phase images. The ventricles, sulci, and cisterns are prominent secondary to involutional change. Castano-white matter differentiation is preserved. No extra- axial fluid collection is seen. Thoracic aorta: Visualized portions of the thoracic aorta are normal in caliber. The aortic arch demonstrates bovine variant anatomy. Right carotid arterial system: The right common carotid artery is widely patent, as are the right internal and external carotid arteries. Calcified plaque is seen in the carotid bulb. Left carotid arterial system: The left common carotid artery is widely patent noting atherosclerotic plaque and irregularity. Atherosclerotic plaque in the ca rotid bulb causes approximately 50% focal stenosis of the proximal left internal carotid artery. Diminutive left internal and external carotid arteries are widely patent. Vertebral arteries: Widely patent bilaterally and codominant. Subclavian arteries: Widely patent bilaterally. Intracranial vasculature: There is atherosclerotic calcification of the cavernous carotid arteries. The internal carotid arteries are patent at the skull base, as are the anterior and middle cerebral arteries bilaterally. The left A1 segment is atretic. The vertebrobasilar system and posterior cerebral arteries are widely patent. The vertebral arteries are codominant. There is no aneurysm, high-grade stenosis, or focal vessel cut off seen throughout the intracranial circulation. Jugular veins: Patent bilaterally. Dural sinuses: Patent. Lung apices: Emphysematous change is noted. A 7 mm nodular opacity seen at the left apex on image #112. Soft tissues: The visualized pharyngeal soft tissues are normal in appearance noting angiographic phase technique. The oropharyngeal airway appears widely patent. The salivary and thyroid glands are normal in appearance. No cervical lymphadenopathy is seen. Skeletal structures: The skeletal structures are osteopenic. The calvarium appears intact. The cervical spine is maintained noting multilevel spondylosis. Orbits: The bony orbits are intact. Orbital contents are normal as visualized. Dentition: There is a large periapical lucency around a remaining left maxillary molar. Sinuses and mastoids: There is mild mucosal thickening in the left maxillary antrum. There is also mild mucosal thickening in the right frontal sinus. The remaining paranasal sinuses are clear. The mastoid air cells are well pneumatized. Cerumen is noted in the right external auditory canal. IMPRESSION: 1. There is no hemorrhage, mass effect, or evidence of acute territorial ischemia by CT criteria. 2. Unremarkable CT angiogram of the brain. 3. There is approximately 50% focal stenosis of the proximal left internal carotid artery. 4. Otherwise unremarkable CT angiogram of the neck. 5. There is a large periapical lucency around a remaining left maxillary molar. 6. Emphysema. 7. A 7 mm nodular opacity at the left apex is unchanged from March [address] and likely represents apical scarring. Consider a precautionary 6-12 month follow-up chest CT for evaluation. 8. Additional findings as above. ACT 112: Negative or not required by law. Electronically signed by: Hiram Moore M.D. 10/23/2025 2:07 PM Head CTA 10/23/25 13:[address] OF THE BRAIN; CT ANGIOGRAM OF THE BRAIN; CT ANGIOGRAM OF THE NECK CLINICAL HISTORY: Neurological deficit. Stroke like symptoms. COMPARISON STUDY: Chest CT dated 05/20/2023. TECHNIQUE: Unenhanced axial CT scan of the brain is performed. Subsequently, following the IV administration of 112 of [address] 320, CT angiogram of the head and neck was performed from the aortic arch to the vertex. Images are reviewed in the axial, sagittal, and coronal planes. 3-D MIPS images are created and assessed. IV contrast was administered without complication. All measurements were calculated based on NASCET criteria. A dose lowering technique was utilized adhering to the principles of ALARA. CT DOSE: 1125.77 mGy.cm FINDINGS: Brain parenchyma: There is age-related involutional change noting advanced confluent subcortical and periventricular microangiopathic disease. There is no hemorrhage, mass effect, or evidence of acute territorial ischemia by CT cr iteria. There is no evidence of enhancing mass lesion on the angiogram phase images. The ventricles, sulci, and cisterns are prominent secondary to involutional change. Castano-white matter differentiation is preserved. No extra- axial fluid collection is seen. Thoracic aorta: Visualized portions of the thoracic aorta are normal in caliber. The aortic arch demonstrates bovine variant anatomy. Right carotid arterial system: The right common carotid artery is widely patent, as are the right internal and external carotid arteries. Calcified plaque is seen in the carotid bulb. Left carotid arterial system: The left common carotid artery is widely patent noting atherosclerotic plaque and irregularity. Atherosclerotic plaque in the carotid bulb causes approximately 50% focal stenosis of the proximal left internal carotid artery. Diminutive left internal and external carotid arteries are widely patent. Vertebral arteries: Widely patent bilaterally and codominant. Subclavian arteries: Widely patent bilaterally. Intracranial vasculature: There is atherosclerotic calcification of the cavernous carotid arteries. The internal carotid arteries are patent at the skull base, as are the anterior and middle cerebral arteries bilaterally. The left A1 segment is atretic. The vertebrobasilar system and posterior cerebral arteries are widely patent. The vertebral arteries are codominant. There is no aneurysm, high-grade stenosis, or focal vessel cut off seen throughout the intracranial circulation. Jugular veins: Patent bilaterally. Dural sinuses: Patent. Lung apices: Emphysematous change is noted. A 7 mm nodular opacity seen at the left apex on image #112. Soft tissues: The visualized pharyngeal soft tissues are normal in appearance noting angiographic phase technique. The oropharyngeal airway appears widely patent. The salivary and thyroid glands are normal in appearance. No cervical lymphadenopathy is seen. Skeletal structures: The skeletal structures are osteopenic. The calvarium appears intact. The cervical spine is maintained noting multilevel spondylosis. Orbits: The bony orbits are intact. Orbital contents are normal as visualized. Dentition: There is a large periapical lucency around a remaining left maxillary molar. Sinuses and mastoids: There is mild mucosal thickening in the left maxillary antrum. There is also mild mucosal thickening in the right frontal sinus. The remaining paranasal sinuses are clear. The mastoid air cells are well pneumatized. Cerumen is noted in the right external auditory canal. IMPRESSION: 1. There is no hemorrhage, mass effect, or evidence of acute territorial ischemia by CT criteria. 2. Unremarkable CT angiogram of the brain. 3. There is approximately 50% focal stenosis of the proximal left internal carotid artery. 4. Otherwise unremarkable CT angiogram of the neck. 5. There is a large periapical lucency around a remaining left maxillary molar. 6. Emphysema. 7. A 7 mm nodular opacity at the left apex is unchanged from March [address] and likely represents apical scarring. Consider a precautionary 6-12 month follow-up chest CT for evaluation. 8. Additional findings as above. ACT 112: Negative or not required by law. Electronically signed by: Hiram Moore M.D. 10/23/2025 2:07 PM Neck CTA 10/23/25 13:[address] OF THE BRAIN; CT ANGIOGRAM OF THE BRAIN; CT ANGIOGRAM OF THE NECK CLINICAL HISTORY: Neurological deficit. Stroke like symptoms. COMPARISON STUDY: Chest CT dated 05/20/2023. TECHNIQUE: Unenhanced axial CT scan of the brain is performed. Subsequently, following the IV administration of 112 of [address] 320, CT angiogram of the head and neck was performed from the aortic arch to the vertex. Images are reviewed in the axial, sagittal, and coronal planes. 3-D MIPS images are created and assessed. IV contrast was administered without complication. All measurements were calculated based on NASCET criteria. A dose lowering technique was utilized adhering to the principles of ALARA. CT DOSE: 1125.77 mGy.cm FINDINGS: Brain parenchyma: There is age-related involutional change noting advanced confluent subcortical and periventricular microangiopathic disease. There is no hemorrhage, mass effect, or evidence of acute territorial ischemia by CT criteria. There is no evidence of enhancing mass lesion on the angiogram phase images. The ventricles, sulci, and cisterns are prominent secondary to involutional change. Castano-white matter differentiation is preserved. No extra- axial fluid collection is seen. Thoracic aorta: Visualized portions of the thoracic aorta are normal in caliber. The aortic arch demonstrates bovine variant anatomy. Right carotid arterial system: The right common carotid artery is widely patent, as are the right internal and external carotid arteries. Calcified plaque is seen in the carotid bulb. Left carotid arterial system: The left common carotid artery is widely patent noting atherosclerotic plaque and irregularity. Atherosclerotic plaque in the carotid bulb causes approximately 50% focal stenosis of the proximal left internal carotid artery. Diminutive left internal and external carotid arteries are widely patent. Vertebral arteries: Widely patent bilaterally and codominant. Subclavian arteries: Widely patent bilaterally. Intracranial vasculature: There is atherosclerotic calcification of the cavernous carotid arteries. The internal carotid arteries are patent at the skull base, as are the anterior and middle cerebral arteries bilaterally. The left A1 segment is atretic. The vertebrobasilar system and posterior cerebral arteries are widely patent. The vertebral arteries are codominant. There is no aneurysm, high-grade stenosis, or focal vessel cut off seen throughout the intracranial circulation. Jugular veins: Patent bilaterally. Dural sinuses: Patent. Lung apices: Emphysematous change is noted. A 7 mm nodular opacity seen at the left apex on image #112. Soft tissues: The visualized pharyngeal soft tissues are normal in appearance noting angiographic phase technique. The oropharyngeal airway appears widely patent. The salivary and thyroid glands are normal in appearance. No cervical lymphadenopathy is seen. Skeletal structures: The skeletal structures are osteopenic. The calvarium appears intact. The cervical spine is maintained noting multilevel spondylosis. Orbits: The bony orbits are intact. Orbital contents are normal as visualized. Dentition: There is a large periapical lucency around a remaining left maxillary molar. Sinuses and mastoids: There is mild mucosal thickening in the left maxillary antrum. There is also mild mucosal thickening in the right frontal sinus. The remaining paranasal sinuses are clear. The mastoid air cells are well pneumatized. Cerumen is noted in the right external auditory canal. IMPRESSION: 1. There is no hemorrhage, mass effect, or evidence of acute territorial ischem ia by CT criteria. 2. Unremarkable CT angiogram of the brain. 3. There is approximately 50% focal stenosis of the proximal left internal carotid artery. 4. Otherwise unremarkable CT angiogram of the neck. 5. There is a large periapical lucency around a remaining left maxillary molar. 6. Emphysema. 7. A 7 mm nodular opacity at the left apex is unchanged from March [address] and likely represents apical scarring. Consider a precautionary 6-12 month follow-up chest CT for evaluation. 8. Additional findings as above. ACT 112: Negative or not required by law. Electronically signed by: Hiram Moore M.D. 10/23/2025 2:07 PM Brain MRI 10/23/25 15:52 Clinical History: Possible stroke Technique: Multiple T1 and T2-weighted magnetic resonance images were obtained of the brain without gadolinium contrast No prior examination is available for comparison Findings: There is a suspected small acute infarct of the junction of the left occipital and left temporal lobes, with an approximately 9 mm area of restricted diffusion. There is also a small linear acute infarct of the left cerebellar hemisphere. There is a small old infarct of the right cerebellar hemisphere. There is cerebral atrophy, within expected limits for the patient's age. There are focal and confluent areas of increased T2 signal intensity within the periventricular white matter of the cerebral hemispheres bilaterally. This is most likely due to chronic small vessel ischemic disease. No definite mass lesion is seen on this noncontrast study. There is no intracranial hemorrhage or other fluid collection. No midline shift or other form of herniation is seen. There is no hydrocephalus. Normal flow-voids are seen within the arteries of the [id number]. The orbits and paranasal sinuses appear normal. The mastoid air cells appear clear. Impression: 1. Small acute infarct at the junction of the left occipital and left temporal lobes 2. Small acute infarct of the left cerebellar hemisphere 3. Cerebral atrophy and extensive chronic small vessel ischemic disease 4. Old right cerebellar infarct ACT 112: Positive. There are findings on this exam that require communication between the performing entity and the patient following Patient Test Result Information Act ([place] ACT 112) guidelines. Electronically signed by Calvin Woodruff 10-23-2025 5:54 PM Medications Administered Home Medications Medication Instructions Recorded Confirmed Last Taken aspirin 81 mg tablet,delayed 81 mg PO DAILY 05/20/23 10/23/25 10/22/25 release atorvastatin 80 mg tablet 80 mg PO DAILY #90 tabs 01/09/25 10/23/25 10/22/25 enalapril maleate 20 mg tablet 20 mg PO DAILY #90 tabs 01/09/25 10/23/25 10/22/25 pantoprazole 40 mg tablet,delayed 40 mg PO QAM 90 days #90 tabs 01/09/25 10/23/25 10/22/25 release ezetimibe 10 mg tablet (Zetia) 10 mg PO DAILY #90 tabs 01/13/25 10/23/25 10/22/25 mecobalamin (vitamin B12) 1,000 1,000 mcg PO DAILY 04/22/25 10/23/25 10/22/25 mcg chewable tablet epinephrine 0.3 mg/0.3 mL 0.3 mg (0.3 mL) IM Q10M PRN 08/04/25 10/23/25 Unknown injection, auto-injector (EpiPen anaphylaxis #2 ea 2-Enoc) clopidogrel 75 mg tablet 75 mg PO DAILY #30 tabs 08/18/25 10/23/25 10/22/25 metoprolol succinate 25 mg 25 mg PO HS #30 tabs 08/18/25 10/23/25 10/22/25 tablet,extended release 24 hr (Toprol XL) escitalopram oxalate 10 mg tablet 10 mg PO DAILY #90 tabs 10/20/25 10/23/25 10/22/25 Active Medications Generic Name Dose Route Start Last Admin Trade Name Freq PRN Reason Stop Dose Admin Aspirin 81 mg 10/24/25 09:00 10/24/25 08:16 Aspirin 81 Mg Ectab PO 11/23/25 08:59 81 mg DAILY CHARITY Administration Atorvastatin Calcium 80 mg 10/24/25 09:00 10/24/25 08:16 Atorvastatin 40 Mg Tab PO 11/23/25 08:59 80 mg DAILY CHARITY Administration Clopidogrel Bisulfate 75 mg 10/24/25 09:00 10/24/25 08:16 Clopidogrel Bisulfate 75 Mg Tab PO 11/23/25 08:59 75 mg DAILY CHARITY Administration Cyanocobalamin 1,000 mcg 10/24/25 09:00 10/24/25 08:15 Cyanocobalamin (B-12) 500 Mcg Tablet PO 11/23/25 08:59 1,000 mcg DAILY CHARITY Administration Ezetimibe 10 mg 10/24/25 09:00 10/24/25 08:16 Ezetimibe 10 Mg Tab PO 11/23/25 08:59 10 mg DAILY CHARITY Administration Enoxaparin Sodium 40 mg 10/24/25 09:00 10/24/25 08:15 Enoxaparin Inj 40 Mg/0.4 Ml Syr SQ 11/23/25 08:59 40 mg QAM CHARITY Administration Escitalopram Oxalate 10 mg 10/24/25 09:00 10/24/25 08:16 Escitalopram Oxalate 10 Mg Tab PO 11/23/25 08:59 10 mg DAILY CHARITY Administration Pantoprazole Sodium 40 mg 10/24/25 09:00 10/24/25 08:16 Pantoprazole 40 Mg Tab PO 11/23/25 08:59 40 mg QAM CHARITY Administration ECG Additional Comments: EKG showed normal sinus rhythm with right bundle branch block.
--- NOTE | 2025-10-24 10:11 | XCELERA ---
[id number] \\[id number]
[2025-10-24] MEDS: ACETAMINOPHEN 325 MG TAB PO PRN (10:17)
[2025-10-24 12:03] VITALS: BP 138/79; PULSE 77; RESP 20; TEMP 98.4; O2SAT 93
[2025-10-24] MEDS ORDERED: STROKE PATIENT DISCHARGE STA (15:21)
--- NOTE | 2025-10-24 15:33 | Discharge Summary ---
Discharge Summary Date of Service date of admission - October 23, 2025 date of discharge - October 24, 2025 Principal Dx & Hospital Course #1 = Principal Diagnosis (1) Acute CVA (cerebrovascular accident): -Presented with right facial numbness, right hand numbness, slurred speech, confusion, acute vertigo, etc. -All concerning for acute CVA. -Symptoms improved quickly - by the intermediate point of his ER visit the symptoms were nearly all resolved. -CT head, CTA head/neck all wnl except 50% ICA stenosis on left only. -MRI brain showed the following - 1. Small acute infarct at the junction of the left occipital and left temporal lobes 2. Small acute infarct of the left cerebellar hemisphere -Seen by Neurology in consult. -given that he had multiple strokes in multiple arterial territories concern was for embolic etiology. -echo with bubble study showed no thrombus or PFO. -no a.fib seen on telemetry during his brief stay. -will set patient up with an outpatient 30-day monitor to r/o paroxysmal a.fib/a.flutter. -while ruling out embolic causes of stroke continue DAPT - aspirin/plavix daily - for secondary stroke prevention. -continue high-intensity statin and zetia as previous (see below). -seen by PT/OT/speech therapy - no outpatient therapies needed. (2) Slurred speech: -see #1 above (3) Headache: -no prior history of migraines -headache likely due to the acute CVA -can't rule out headache from brewing dental abscess (4) CAD (coronary artery disease): -s/p recent cardiac catheterization 08/18/[address] Andreas Whitman Findings: LM -normal caliber, long vessel with 20 to 30% mid segment stenosis. LAD -medium caliber vessel, mildly calcified, multiple sequential LAD lesions, 60% late-LAD at takeoff of large D1 followed by focal 90% stenosis at second septal. Latemid LAD stent with severe diffuse in-stent restenosis 95+%. Distal vessel with mild disease and extends around apex Circumflex -small caliber vessel, 40% ostial stenosis before bifurcating high OM1. Subtotally occluded in the midsegment. Small OM2 with MERRILL I flow RCA -large caliber vessel, dominant, 30% mid segment disease. Bifurcation PDA with 40-50% ostial stenosis. 100% chronic occlusion of right posterior AV branch right after takeoff of PDA. Right PLB's fill briskly via [id number] collaterals. S/P 2 ANA to LAD -cont asa -cont plavix -cont statin and zetia -cont meto succ -cont enalapril -echo 07/2025 - EF 50-55%, apical akinesis, no thrombus; echo this admission unchanged -he had no ischemic symptoms while here (5) HTN (hypertension): -cont meto succ -cont enalapril (6) HLD (hyperlipidemia): -cont high-intensity statin --> lipitor 80mg daily -cont zetia -LDL 112 -HDL 47 -triglycerides 154 (7) History of tobacco abuse: -no longer smoking -quit earlier in 2024 (8) Stenosis of left internal carotid artery: -50% -no Rx needed for this -cont statin -cont zetia -LDL 112 on lipid profile -HDL 47 (9) Asymptomatic periapical periodontitis: -left maxillary molar -should see oral surgery for this post-d/c - likely needs extraction -augmentin 875mg BID x 10 days (10) Pulmonary nodule: -7mm, KENYATTA - seen incidentally on CTA neck -present since at least 2022 -given prior tobacco dependence will need ongoing surveillance (11) GERD (gastroesophageal reflux disease): -cont PPI (12) Prediabetes: -a1c 6% -was also 6% in 2022 -f/u with PCP for this Notes For Next Care Provider 1. needs outpatient Holter or Event monitor - r/o a.fib 2. needs to see oral surgery for extraction of left maxillary molar 3. 7mm KENYATTA pulmonary nodule - needs ongoing surveillance of such Medication Changes From Visit Augmentin 875mg BID x 10 days for possible dental abscess Admission HPI Per Admitting Provider 65yo male with CAD s/p 2 LAD stents in 07/2025, HTN, hyperlipidemia, prior stroke while [place], and GERD presents from home due to the acute onset of dizziness, weakness, altered mental status, slurred speech, right facial numbness, and right hand numbness starting about noon today. The patient does not speak [place] and I offered an r d internship to the patient & his son-in-law. Son-in-law declined an r d internship, stating he wanted to translate for his father. Per the patient's son-in-law the patient was at his home and at about 12 o'clock, while in the bathroom, he developed dizziness that was described as a vertigo sensation. He grabbed onto the bathroom door and called out for his . His & son-in-law came to his aid and guided him back to bed. He was awake but not responding and couldn't speak sensibly. His speech was slurry. He was able to tell his family that his right side of his face & right hand felt numb. His son-in-law also mentioned that he looked pale during this event. He did not have any motor weakness and did not have any RLE symptoms. The face did not have a droop. EMS was summoned to his home and he was brought to [facility]. By the time he was in the ER he reported a mild headache above the left eye. He does not have a history of migraines. When he was trying to recall the events of today he had a difficult time doing so. Upon ER presentation at [facility] patient underwent telestroke evaluation. Given rapid improvement in symptoms lytic therapy was not advised. Patient mentioned that he had a stroke years ago while still living in the country of [place]. He was left with no disabilities from that stroke. He mentioned that his father had a stroke during his lifetime. About 2 months ago he underwent left heart catheterization and had 2 stents placed to the LAD. He has been taking DAPT (aspirin/plavix) since then. Discharge Exam gen - lying comfortably in bed, NAD, speech clear, no dysarthria or aphasia face - no droop HENT - MMM; only has 1 remaining tooth - left maxillary molar - with gingival inflammation/swelling/erythema, tooth is severely decayed neck - no bruits CV - RRR, s1 s2, no murmur lungs - CTA b/l abd - soft NT ND BS+, no HSM ext - no edema, pulses 2+ b/l feet neuro - CN 3-12 intact, motor strength 5/5 x 4 exts; speech clear, no facial droop Discharge Plan Discharge Items Patient Disposition: Home - Self-Care Reason For Visit: RIGHT FACIAL/RIGHT HAND NUMBNESS Discharge Diagnosis: 1. left sided strokes (small) as seen on MRI brain 2. right sided facial/hand numbness - due to #1 3. hyperlipidemia (high cholesterol) 4. pre-diabetes (hemoglobin a1c 6%) 5. coronary artery disease with recent placement of stents 6. mild carotid artery stenosis on left (50% narrowing) - nothing to do at this time 7. dental abscess 8. headache - probably due to stroke; possibly due to dental abscess Condition on Discharge: Good Activity: As commented below Activity Comment: plan to take it easy for 7-10 days (nothing strenuous) Driving/Machine Use: Resume 3 days after discharge Non-emergency contact: Primary Care Provider and Microarray Specialist Call non-emergency contact if: you have any medication questions and your symptoms worsen Follow-up/Referrals: Fredy Whiteside III, CRNP [Primary Care Provider] - 10/29/25 9:20 am () Elina Russell PA-C [Physician Manager Of Change] - 01/06/26 Thomas Dorado DMD [Physician] - (please contact Dr Dorado's office to set up a convenient time to discuss removal of the infected tooth) Diet: Heart Healthy Addtl Attending Provider Instructions: Mr Shah, You were hospitalized due to having an episode of right sided facial & hand numbness, weakness, slurry speech, etc. Fortunately the symptoms resolved rather quickly. After the event you had a left-sided headache. MRI brain confirmed multiple small strokes in the back of the head on the left side. The location of the strokes is concerning for embolic stroke - that is, a clot or several clots traveled through your circulation and up to the brain to cause the stroke event. A common location for blood clot formation is the heart. We checked your heart today with an echocardiogram and did not see any obvious blood clot. However, we plan to mail you a heart monitor to wear at home for 30 days to ensure you are not having a heart rhythm called atrial fibrillation. People with atrial fibrillation can form blood clots in their heart which can lead to stroke. Of note - during your brief stay we had you on a heart monitor and we did not see atrial fibrillation. Neurology saw you in consult and recommended that you continue your aspirin, atorvastatin, and clopidogrel as previous. They also recommended that heart monitor at your home. If we find atrial fibrillation at any time in the future we would stop your aspirin and change it to something else. Finally, on your CT scans, we saw that your tooth on the left side of your upper jaw is infected (dental abscess). This could be contributing to headache. Recommendations - 1. 30-day heart monitor - to be mailed to your home; it will come with instructions on how to use it 2. amoxicillin-clavulanate - 1 tablet by mouth twice daily x 10 days, take with food; start tonight -most common side effect - diarrhea 3. plan to take it easy for at least a week as you recover from the stroke; no heavy lifting or strenuous activities during this time period 4. you have evidence of pre-diabetes. It is important to know that you have it and to ensure you are being monitored a few times a year by your family doctor. See handouts on pre-diabetes & hemoglobin a1c test Who to Call and When: Medical Emergencies: Call 911 immediately if you experience any of the following warning signs and symptoms of Stroke: * Sudden numbness or weakness of the face, arm or leg, especially on one side of the body * Sudden confusion, trouble speaking or understanding * Sudden trouble seeing in one or both eyes * Sudden trouble walking, dizziness, loss of balance or coordination * Sudden severe headache with no cause Do not delay calling 911 if you experience any warning signs or symptoms of a stroke. Delay in seeking medical attention may affect what treatments can be given to you. Finally, if you experience severe diarrhea from your antibiotics (3 or more liquid stools in 24 hours), please let your family doctor know about this. It was our pleasure to care for you! -Donovan Arenas, [facility] Addtl Speed Runner Provider Instructions: Risk Factors for Stroke: You can reduce your chances of stroke by working with your medical provider to adopt a healthy lifestyle. Some specific ways to lower your chance of stroke are: * If you are a smoker, now is the time to stop smoking cigarettes * If you are diabetic, improve the control of your blood sugars * Avoid excessive amounts of alcohol * Control high blood pressure * Lose weight if you are overweight * Be sure to lead an active lifestyle * Eat a healthy diet low in salt, cholesterol and fat You should know about other risk factors for stroke that you are unable to control. These include: * Age 55 years or older * Male gender * Certain racial groups: , or / * Family History of Stroke, Mini stroke or Heart Attack * Sickle Cell Disease . Pending Studies at Discharge: No Stand-Alone Forms: [facility], Smoking Cessation, Medications to Prevent Stroke Medications and DC Order Prescriptions: Continued ezetimibe [Zetia] 10 mg tablet 10 mg PO DAILY Qty: 90 3RF epinephrine [EpiPen 2-Enoc] 0.3 mg/0.3 mL auto-injector 0.3 mg IM Q10M PRN (Reason: anaphylaxis) Qty: 2 0RF Rx Instructions: for 2 doses metoprolol succinate [Toprol XL] 25 mg tablet extended release 24 hr 25 mg PO HS Qty: 30 6RF escitalopram oxalate 10 mg tablet 10 mg PO DAILY Qty: 90 1RF atorvastatin 80 mg tablet 80 mg PO DAILY Qty: 90 3RF pantoprazole 40 mg tablet,delayed release (DR/EC) 40 mg PO QAM 90 Days Qty: 90 3RF mecobalamin (vitamin B12) 1,000 mcg tablet,chewable 1,000 mcg PO DAILY aspirin 81 mg Tablet,Delayed Release (Dr/Ec) 81 mg PO DAILY clopidogrel 75 mg tablet 75 mg PO DAILY Qty: 30 11RF No Action cefdinir 300 mg capsule 300 mg PO BID 7 Days Qty: 14 0RF enalapril maleate 20 mg tablet 20 mg PO BID Qty: 180 3RF Discharge Orders: Discharge Order (Routine); Ordered 10/24/25 Ordered By: Donovan Huitron/Other Patient Handouts: A1C, Dental Abscess, Prediabetes, Stroke Brain Body Effects, 5 Steps for Eating Healthier, Anatomy of the Brain, Risk Factors for Stroke Admission Data Admit Date/Time: 10/23/25 15:59 Attending Provider: Donovan Arenas Admit Provider: Donovan Arenas Primary Care Provider: Fredy Whiteside III Other Providers: Donovan Arenas; Onur Barreto Other Interventions: Discharge Summary Assessment (RN) Last Done: 10/24/25 15:39 Hospital Stay Data Consultations Consult Neurology PT, OT Speech therapy Procedures Performed Echocardiogram: Diagnostic Imagining Performed Head CT 10/23/25 13:[address] OF THE BRAIN; CT ANGIOGRAM OF THE BRAIN; CT ANGIOGRAM OF THE NECK CLINICAL HISTORY: Neurological deficit. Stroke like symptoms. COMPARISON STUDY: Chest CT dated 05/20/2023. TECHNIQUE: Unenhanced axial CT scan of the brain is performed. Subsequently, following the IV administration of 112 of [address] 320, CT angiogram of the head and neck was performed from the aortic arch to the vertex. Images are reviewed in the axial, sagittal, and coronal planes. 3-D MIPS images are created and assessed. IV contrast was administered without complication. All measurements were calculated based on NASCET criteria. A dose lowering technique was utilized adhering to the principles of ALARA. CT DOSE: 1125.77 mGy.cm FINDINGS: Brain parenchyma: There is age-related involutional change noting advanced confluent subcortical and periventricular microangiopathic disease. There is no hemorrhage, mass effect, or evidence of acute territorial ischemia by CT criteria. There is no evidence of enhancing mass lesion on the angiogram phase images. The ventricles, sulci, and cisterns are prominent secondary to involutional change. Castano-white matter differentiation is preserved. No extra- axial fluid collection is seen. Thoracic aorta: Visualized portions of the thoracic aorta are normal in caliber. The aortic arch demonstrates bovine variant anatomy. Right carotid arterial system: The right common carotid artery is widely patent, as are the right internal and external carotid arteries. Calcified plaque is seen in the carotid bulb. Left carotid arterial system: The left common carotid artery is widely patent noting atherosclerotic plaque and irregularity. Atherosclerotic plaque in the carotid bulb causes approximately 50% focal stenosis of the proximal left internal carotid artery. Diminutive left internal and external carotid arteries are widely patent. Vertebral arteries: Widely patent bilaterally and codominant. Subclavian arteries: Widely patent bilaterally. Intracranial vasculature: There is atherosclerotic calcification of the cavernous carotid arteries. The internal carotid arteries are patent at the skull base, as are the anterior and middle cerebral arteries bilaterally. The left A1 segment is atretic. The vertebrobasilar system and posterior cerebral arteries are widely patent. The vertebral arteries are codominant. There is no aneurysm, high-grade stenosis, or focal vessel cut off seen throughout the intracranial circulation. Jugular veins: Patent bilaterally. Dural sinuses: Patent. Lung apices: Emphysematous change is noted. A 7 mm nodular opacity seen at the left apex on image #112. Soft tissues: The visualized pharyngeal soft tissues are normal in appearance noting angiographic phase technique. The oropharyngeal airway appears widely patent. The salivary and thyroid glands are normal in appearance. No cervical lymphadenopathy is seen. Skeletal structures: The skeletal structures are osteopenic. The calvarium appears intact. The cervical spine is maintained noting multilevel spondylosis. Orbits: The bony orbits are intact. Orbital contents are normal as visualized. Dentition: There is a large periapical lucency around a remaining left maxillary molar. Sinuses and mastoids: There is mild mucosal thickening in the left maxillary antrum. There is also mild mucosal thickening in the right frontal sinus. The remaining paranasal sinuses are clear. The mastoid air cells are well pneumatized. Cerumen is noted in the right external auditory canal. IMPRESSION: 1. There is no hemorrhage, mass effect, or evidence of acute territorial ischemia by CT criteria. 2. Unremarkable CT angiogram of the brain. 3. There is approximately 50% focal stenosis of the proximal left internal carotid artery. 4. Otherwise unremarkable CT angiogram of the neck. 5. There is a large periapical lucency around a remaining left maxillary molar. 6. Emphysema. 7. A 7 mm nodular opacity at the left apex is unchanged from March [address] and likely represents apical scarring. Consider a precautionary 6-12 month follow-up chest CT for evaluation. 8. Additional findings as above. ACT 112: Negative or not required by law. Electronically signed by: Hiram Moore M.D. 10/23/2025 2:07 PM Head CTA 10/23/25 13:[address] OF THE BRAIN; CT ANGIOGRAM OF THE BRAIN; CT ANGIOGRAM OF THE NECK CLINICAL HISTORY: Neurological deficit. Stroke like symptoms. COMPARISON STUDY: Chest CT dated 05/20/2023. TECHNIQUE: Unenhanced axial CT scan of the brain is performed. Subsequently, following the IV administration of 112 of [address] 320, CT angiogram of the head and neck was performed from the aortic arch to the vertex. Images are reviewed in the axial, sagittal, and coronal planes. 3-D MIPS images are created and assessed. IV contrast was administered without complication. All measurements were calculated based on NASCET criteria. A dose lowering technique was utilized adhering to the principles of ALARA. CT DOSE: 1125.77 mGy.cm FINDINGS: Brain parenchyma: There is age-related involutional change noting advanced confluent subcortical and periventricular microangiopathic disease. There is no hemorrhage, mass effect, or evidence of acute territorial ischemia by CT criteria. There is no evidence of enhancing mass lesion on the angiogram phase images. The ventricles, sulci, and cisterns are prominent secondary to involutional change. Castano-white matter differentiation is preserved. No extra- axial fluid collection is seen. Thoracic aorta: Visualized portions of the thoracic aorta are normal in caliber. The aortic arch demonstrates bovine variant anatomy. Right carotid arterial system: The right common carotid artery is widely patent, as are the right internal and external carotid arteries. Calcified plaque is seen in the carotid bulb. Left carotid arterial system: The left common carotid artery is widely patent noting atherosclerotic plaque and irregularity. Atherosclerotic plaque in the carotid bulb causes approximately 50% focal stenosis of the proximal left internal carotid artery. Diminutive left internal and external carotid arteries are widely patent. Vertebral arteries: Widely patent bilaterally and codominant. Subclavian arteries: Widely patent bilaterally. Intracranial vasculature: There is atherosclerotic calcification of the cavernous carotid arteries. The internal carotid arteries are patent at the skull base, as are the anterior and middle cerebral arteries bilaterally. The left A1 segment is atretic. The vertebrobasilar system and posterior cerebral arteries are widely patent. The vertebral arteries are codominant. There is no aneurysm, high-grade stenosis, or focal vessel cut off seen throughout the intracranial circulation. Jugular veins: Patent bilaterally. Dural sinuses: Patent. Lung apices: Emphysematous change is noted. A 7 mm nodular opacity seen at the left apex on image #112. Soft tissues: The visualized pharyngeal soft tissues are normal in appearance noting angiographic phase technique. The oropharyngeal airway appears widely patent. The salivary and thyroid glands are normal in appearance. No cervical lymphadenopathy is seen. Skeletal structures: The skeletal structures are osteopenic. The calvarium appears intact. The cervical spine is maintained noting multilevel spondylosis. Orbits: The bony orbits are intact. Orbital contents are normal as visualized. Dentition: There is a large periapical lucency around a remaining left maxillary molar. Sinuses and mastoids: There is mild mucosal thickening in the left maxillary antrum. There is also mild mucosal thickening in the right frontal sinus. The remaining paranasal sinuses are clear. The mastoid air cells are well pneumatized. Cerumen is noted in the right external auditory canal. IMPRESSION: 1. There is no hemorrhage, mass effect, or evidence of acute territorial ischemia by CT criteria. 2. Unremarkable CT angiogram of the brain. 3. There is approximately 50% focal stenosis of the proximal left internal carotid artery. 4. Otherwise unremarkable CT angiogram of the neck. 5. There is a large periapical lucency around a remaining left maxillary molar. 6. Emphysema. 7. A 7 mm nodular opacity at the left apex is unchanged from March [address] and likely represents apical scarring. Consider a precautionary 6-12 month follow-up chest CT for evaluation. 8. Additional findings as above. ACT 112: Negative or not required by law. Electronically signed by: Hiram Moore M.D. 10/23/2025 2:07 PM Neck CTA 10/23/25 13:[address] OF THE BRAIN; CT ANGIOGRAM OF THE BRAIN; CT ANGIOGRAM OF THE NECK CLINICAL HISTORY: Neurological deficit. Stroke like symptoms. COMPARISON STUDY: Chest CT dated 05/20/2023. TECHNIQUE: Unenhanced axial CT scan of the brain is performed. Subsequently, following the IV administration of 112 of [address] 320, CT angiogram of the head and neck was performed from the aortic arch to the vertex. Images are reviewed in the axial, sagittal, and coronal planes. 3-D MIPS images are created and assessed. IV contrast was administered without complication. All measurements were calculated based on NASCET criteria. A dose lowering technique was utilized adhering to the principles of ALARA. CT DOSE: 1125.77 mGy.cm FINDINGS: Brain parenchyma: There is age-related involutional change noting advanced confluent subcortical and periventricular microangiopathic disease. There is no hemorrhage, mass effect, or evidence of acute territorial ischemia by CT criteria. There is no evidence of enhancing mass lesion on the angiogram phase images. The ventricles, sulci, and cisterns are prominent secondary to involutional change. Castano-white matter differentiation is preserved. No extra- axial fluid collection is seen. Thoracic aorta: Visualized portions of the thoracic aorta are normal in caliber. The aortic arch demonstrates bovine variant anatomy. Right carotid arterial system: The right common carotid artery is widely patent, as are the right internal and external carotid arteries. Calcified plaque is seen in the carotid bulb. Left carotid arterial system: The left common carotid artery is widely patent noting atherosclerotic plaque and irregularity. Atherosclerotic plaque in the carotid bulb causes approximately 50% focal stenosis of the proximal left internal carotid artery. Diminutive left internal and external carotid arteries are widely patent. Vertebral arteries: Widely patent bilaterally and codominant. Subclavian arteries: Widely patent bilaterally. Intracranial vasculature: There is atherosclerotic calcification of the cavernous carotid arteries. The internal carotid arteries are patent at the skull base, as are the anterior and middle cerebral arteries bilaterally. The left A1 segment is atretic. The vertebrobasilar system and posterior cerebral arteries are widely patent. The vertebral arteries are codominant. There is no aneurysm, high-grade stenosis, or focal vessel cut off seen throughout the intracranial circulation. Jugular veins: Patent bilaterally. Dural sinuses: Patent. Lung apices: Emphysematous change is noted. A 7 mm nodular opacity seen at the left apex on image #112. Soft tissues: The visualized pharyngeal soft tissues are normal in appearance noting angiographic phase technique. The oropharyngeal airway appears widely patent. The salivary and thyroid glands are normal in appearance. No cervical lymphadenopathy is seen. Skeletal structures: The skeletal structures are osteopenic. The calvarium appears intact. The cervical spine is maintained noting multilevel spondylosis. Orbits: The bony orbits are intact. Orbital contents are normal as visualized. Dentition: There is a large periapical lucency around a remaining left maxillary molar. Sinuses and mastoids: There is mild mucosal thickening in the left maxillary antrum. There is also mild mucosal thickening in the right frontal sinus. The remaining paranasal sinuses are clear. The mastoid air cells are well pneumatized. Cerumen is noted in the right external auditory canal. IMPRESSION: 1. There is no hemorrhage, mass effect, or evidence of acute territorial ischemia by CT criteria. 2. Unremarkable CT angiogram of the brain. 3. There is approximately 50% focal stenosis of the proximal left internal carotid artery. 4. Otherwise unremarkable CT angiogram of the neck. 5. There is a large periapical lucency around a remaining left maxillary molar. 6. Emphysema. 7. A 7 mm nodular opacity at the left apex is unchanged from March [address] and likely represents apical scarring. Consider a precautionary 6-12 month follow-up chest CT for evaluation. 8. Additional findings as above. ACT 112: Negative or not required by law. Electronically signed by: Hiram Moore M.D. 10/23/2025 2:07 PM Brain MRI 10/23/25 15:52 Clinical History: Possible stroke Technique: Multiple T1 and T2-weighted magnetic resonance images were obtained of the brain without gadolinium contrast No prior examination is available for comparison Findings: There is a suspected small acute infarct of the junction of the left occipital and left temporal lobes, with an approximately 9 mm area of restricted diffusion. There is also a small linear acute infarct of the left cerebellar hemisphere. There is a small old infarct of the right cerebellar hemisphere. There is cerebral atrophy, within expected limits for the patient's age. There are focal and confluent areas of increased T2 signal intensity within the periventricular white matter of the cerebral hemispheres bilaterally. This is most likely due to chronic small vessel ischemic disease. No definite mass lesion is seen on this noncontrast study. There is no intracranial hemorrhage or other fluid collection. No midline shift or other form of herniation is seen. There is no hydrocephalus. Normal flow-voids are seen within the arteries of the [id number]. The orbits and paranasal sinuses appear normal. The mastoid air cells appear clear. Impression: 1. Small acute infarct at the junction of the left occipital and left temporal lobes 2. Small acute infarct of the left cerebellar hemisphere 3. Cerebral atrophy and extensive chronic small vessel ischemic disease 4. Old right cerebellar infarct ACT 112: Positive. There are findings on this exam that require communication between the performing entity and the patient following Patient Test Result Information Act ([place] ACT 112) guidelines. Electronically signed by Calvin Woodruff 10-23-2025 5:54 PM Pending Results Patient Have Any Pending Studies at Discharge: No Discharge Instructions Given to Patient (Per Discharging Provider) Mr Shah, Fabian were hospitalized due to having an episode of right sided facial & hand numbness, weakness, slurry speech, etc. Fortunately the symptoms resolved rather quickly. After the event you had a left-sided headache. MRI brain confirmed multiple small strokes in the back of the head on the left side. The location of the strokes is concerning for embolic stroke - that is, a clot or several clots traveled through your circulation and up to the brain to cause the stroke event. A common location for blood clot formation is the heart. We checked your heart today with an echocardiogram and did not see any obvious blood clot. However, we plan to mail you a heart monitor to wear at home for 30 days to ensure you are not having a heart rhythm called atrial fibrillation. People with atrial fibrillation can form blood clots in their heart which can lead to stroke. Of note - during your brief stay we had you on a heart monitor and we did not see atrial fibrillation. Neurology saw you in consult and recommended that you continue your aspirin, atorvastatin, and clopidogrel as previous. They also recommended that heart monitor at your home. If we find atrial fibrillation at any time in the future we would stop your aspirin and change it to something else. Finally, on your CT scans, we saw that your tooth on the left side of your upper jaw is infected (dental abscess). This could be contributing to headache. Recommendations - 1. 30-day heart monitor - to be mailed to your home; it will come with instructions on how to use it 2. amoxicillin-clavulanate - 1 tablet by mouth twice daily x 10 days, take with food; start tonight -most common side effect - diarrhea 3. plan to take it easy for at least a week as you recover from the stroke; no heavy lifting or strenuous activities during this time period 4. you have evidence of pre-diabetes. It is important to know that you have it and to ensure you are being monitored a few times a year by your family doctor. See handouts on pre-diabetes & hemoglobin a1c test Who to Call and When: Medical Emergencies: Call 911 immediately if you experience any of the following warning signs and symptoms of Stroke: * Sudden numbness or weakness of the face, arm or leg, especially on one side of the body * Sudden confusion, trouble speaking or understanding * Sudden trouble seeing in one or both eyes * Sudden trouble walking, dizziness, loss of balance or coordination * Sudden severe headache with no cause Do not delay calling 911 if you experience any warning signs or symptoms of a stroke. Delay in seeking medical attention may affect what treatments can be given to you. Finally, if you experience severe diarrhea from your antibiotics (3 or more liquid stools in 24 hours), please let your family doctor know about this. It was our pleasure to care for you! -Donovan Arenas, [facility] Total Time Total Time Spent Total Time Spent (In Minutes): 45 Total Time Includes: Examination of the Patient, Discharge Planning, Medication Reconciliation and Communication With Other Providers Coding Level of Care Code 75505 INP/OBS DISCH >30 MIN Diagnoses Acute CVA (cerebrovascular accident) I63.9 Slurred speech R47.81 Headache R51.9 Coronary artery disease involving [place] coronary artery of [place] heart without angina pectoris I25.10 Associated angina: without angina Coronary Disease-Associated Artery/Lesion type: [place] artery [place] vs. transplanted heart: [place] heart Primary hypertension I10 Hypertension type: primary hypertension Mixed hyperlipidemia E78.2 Hyperlipidemia type: mixed hyperlipidemia History of tobacco abuse Z87.891 Stenosis of left internal carotid artery I65.22 Asymptomatic periapical periodontitis K04.5 Pulmonary nodule R91.1 GERD (gastroesophageal reflux disease) K21.9 Prediabetes R73.03
--- NOTE | 2025-10-25 08:28 | Electrocardiogram Report ---
Test Reason : Blood Pressure : */* mmHG Vent. Rate : 70 BPM Atrial Rate : 70 BPM P-R Int : 164 ms QRS Dur : 148 ms QT Int : 448 ms P-R-T Axes : 53 -46 86 degrees QTcB Int : 483 ms Normal sinus rhythm Right bundle branch block Left anterior fascicular block Bifascicular block Possible Lateral infarct , age undetermined Abnormal ECG When compared with ECG of 18-Aug-2025 10:13, Right bundle branch block has replaced Non-specific intra-ventricular conduction block Confirmed by Andreas Smith ([id number]) on 10/25/2025 8:27:54 AM Referred By: REFERRED SELF Confirmed By: Andreas Smith
== END 2025-10-24 16:04 | disposition home or self-care (01) ==
LOC: 2E 13:29 → ED 13:29 → 2E 18:01